=== PATIENT | female | born 1960 | race Caucasian/White ===

== ENCOUNTER 2016-09-09 17:01 | Inpatient (IN) | payer OTHER, MEDICARE ==
[~2016-09-09] VITALS: Ht 165.1 cm; Wt 59.9 kg
[~2016-09-09 17:01] MED LIST: ALBUTEROL 3 ML3 ML INH; ALBUTEROL SULFAT3 M1 INH; ALBUTEROL1.25 MG/1 INH; ALPRAZOLAM1 MG PO; ASPIRIN EC81 M1 PO; BACTRIM DS TAB1 EACH PO; BLM PO; BREO ELLIPTA 11 EACH INH; CALCIUM600 M2 PO; DILTIAZEM ER120 M2 PO; DOLOPHINE HCL10 M1 PO; DOLOPHINE10 MG PO; ELIQUIS5 M1 PO; GAS RELIEF40 MG/0.6 PO; HUMALOG 100U100 U/ML SC; HUMALOG100 UNIT/2 SC; HYDROXYZINE HCL25 M2 PO; IPRAT-ALBUT 0.5-3 ML INH; LANTUS INS100 UNITS/ SC; LANTUS SOLOS100 U/ML SC; LASIX40 M1 PO; LEVAQUIN750 MG PO; LEVEMIR 10100 UNITS/ SC; LOMOTIL 0.025 M1 TAB PO; LYRICA50 MG PO; LYRICA75 M1 PO; LYRICA75 MG PO; METHIMAZOLE5 M1 PO; METHIMAZOLE5 MG PO; METOCLOPRAMIDE10 MG PO; METOCLOPRAMIDE5 MG PO; MOXIFLOXACIN H400 M1 PO; NEBULIZER MACHINE; NICODERM C21 MG/24 H TOP; NICOTINE PATCH1 EAC1 TD; NOVOLOG 10300 UNITS/ SC; NOVOLOG100 UNIT/2 SC; OMEPRAZOLE D/R20 MG PO; PERMETHRIN60 GM TOP; PREDNISONE10 M2 PO; PRILOSEC 20MG C20 MG PO; PROAIR HFA8.5 GM INH; PROPRANOLOL HCL20 M1 PO; PROPRANOLOL HCL20 MG PO; PROTONIX40 M3 IV; REGLAN10 MG PO; REGLAN5 M1 PO; ROBITUSSIN W/CO10 ML PO; SYMBICORT 160/41 PUF INH; SYMBICORT 16010.2 GM INH; TAPAZOLE 5 MG TA5 MG PO; TAPAZOLE5 MG PO; TOUJEO SOL300 UNIT/1 SC; TRAZODONE HCL50 M1 PO; VENTOLIN H0.09 MG/Ac INH; VITAMIN D250000 UNIT PO; XANAX1 M1 PO; ZOFRAN 4MG ORALL4 MG SL; ZOFRAN ODT4 MG SL
--- NOTE | 2016-09-09 17:12 | NUR ---
RT AT BEDSIDE ON ARRIVAL FOR NEB TX AND ABG.
--- NOTE | 2016-09-09 17:13 | ED DYSPNEA/ASTHMA COMPLAINT ---
History of Present Illness General Chief Complaint: Dyspnea (COPD, CHF, Other) Stated Complaint: BIBA FOR DIFFICULTY BREATHING Source: patient, family, old records Exam Limitations: poor historian Vital Signs & Intake/Output Vital Signs & Intake/Output ED Intake and Output 09/18 0000 09/17 1200 Intake Total 800 600 Output Total 1 Balance 799 600 Intake, Oral 800 600 Number 1 Bowel Movements Output, Stool 1 Allergies Coded Allergies: No Known Allergies (05/16/16) PER PT VERBALLY VERIFIED TAKES 81MG ASA Triage Note: BIBA FROM HOME WITH C/O SOB FOR 2-3 WEEKS WITH COUGH PRODUCING YELLOW-GREEN SPUTUM. PT ON 4L BASELINE AT HOME, ARRIVES SATS 85 ON 4L AFTER DUONEB EN ROUTE. Triage Nurses Notes Reviewed? yes Onset: Gradual Duration: week(s): (2) Timing: recent history Severity: severe Activities at Onset: none Prior Episodes/Possible Cause: occasional episodes Modifying Factors: Improves With: immobilization. Associated Symptoms: cough HPI: Patient is a 55-year-old female with history of COPD, on 4 L nasal cannula chronically presenting to the emergency department via ambulance with chief complaint of increasing shortness of breath 2 weeks. Intermittent dry cough that worse with exertion. Denies chest pain or palpitations. She does report intermittent abdominal discomfort that comes and goes. No nausea or vomiting. Per daughter she still has been smoking on oxygen. No change in medication dosing. Taking medications as prescribed. She reports that she's been eating and drinking without much difficulty. No recent travel. Denies any leg edema or pain. Per daughter she's been intermittently confused for the past couple days. (RANDY NICOLE,JOSY) Reconcile Medications Albuterol Sulfate (Proair Hfa) 8.5 GM HFA.AER.AD 2 PUF INH Q4-6 PRN PRN BREATHING (Reported) Albuterol Sulfate 2.5 MG/3 ML (0.083 %) VIAL.NEB 3 ML INH TID COPD Alprazolam (Xanax) 1 MG TABLET 1 TAB PO TIDPRN PRN ANXIETY (Reported) Aspirin (Ecotrin*) 81 MG TABLET.DR 1 TAB PO DAILY HEART/BLOOD (Reported) Budesonide/Formoterol Fumarate (Symbicort 160-4.5 Mcg Inhaler) 10.2 GM HFA.AER.AD 2 PUF INH BID copd (Reported) Ergocalciferol (Vitamin D2) (Vitamin D2) 50,000 UNIT CAPSULE 1 CAP PO QFRI SUPPLEMENT (Reported) Hydroxyzine HCl 25 MG TABLET 1-2 TAB PO TID PRN ITCHING Insulin Aspart (Novolog) 100 UNIT/ML VIAL 0 UNITS SC SI diabetes BEFORE MEALS Blood Insulin Sugar Units <100 0 100-180 2 units 181-250 3 U 251-320 4 U 321-360 5 U 361-450 6 U >450 7 U >400 7 Call Doctor AT BEDTIME Blood Insulin Sugar Units <320 0 321-360 2 U 361-450 3 U >450 4 U Insulin Glargine,Hum.rec.anlog (Toujeo Solostar) 300 UNIT/1 ML INSULN.PEN 20 UNITS SC 0900 DIABETES (Reported) Methadone HCl (Dolophine HCl) 10 MG TABLET 10 TAB PO 0500 CHRONIC PAIN ( Reported) Methimazole 10 MG TABLET 1 TAB PO DAILY HYpothyroididsm (Reported) Metoclopramide HCl (Reglan) 5 MG TABLET 1 TAB PO Q6P PRN NAUSEA Prednisone 10 MG TABLET 1 TAB PO BID COPD 09/18/2016 40 mg (4 tablets) 09/19-09/20 30 mg 09/21-09/22 20 mg 09/23-09/24 10 mg Pregabalin (Lyrica) 75 MG CAPSULE 1 CAP PO BID NERVE PAIN (Reported) Propranolol HCl 20 MG TABLET 1 TAB PO BID PRN TACHYCARDIA (Reported) Trazodone HCl 50 MG TABLET 1 TAB PO QPM PRN Sleep (Reported) (KURT NERI MD) Past History Travel History Traveled to [place] past 21 day No Medical History Any Pertinent Medical History? 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 SON (IDDM). Relation not specified for: FH: diabetes mellitus Hx Contributory? No (JOSY WILLIAMSON) Review of Systems Review of Systems Constitutional: Reports: chills, malaise, weakness. Comments Review of systems: See HPI, All other systems negative. Constitutional, no weight loss HEENT: No visual changes no sore throat Cardiovascular: No chest pain ,palpitation , orthopnea or ankle swelling Skin, no rashes Respiratory: No hemoptysis GI: No nausea no vomiting : No dysuria No hematuria Muscle skeletal: no back pain, no neck pain, Neurologic: No numbness no glasgow Psych: No stress anxiety or depression,. Heme/endocrine: No bruising no bleeding no polyuria or polydipsia Immunology: No splenectomy or history of AIDS (JOSY WILLIAMSON) Physical Exam Physical Exam General Appearance: alert, awake, anxious, mild distress, thin Respiratory: respiratory distress (mild), scattered wheezing throughout Comments: Well-developed well-nourished person in mild distress HEENT: extraocular motion intact, no nystagmus. Pupils equally round and reactive to light and accommodation. Nose is atraumatic. External auditory canal and Tympanic membranes clear. Pharynx normal. No swelling or edema. Dry oral mucosa. Neck: Supple, no lymphadenopathy, normal range of motion without pain or tenderness Back: Nontender Cardiovascular: Regular rate and rhythms no murmurs rubs or gallops, normal JVP Respiratory: Chest nontender. Mild respiratory distress.scattered wheezing auscultation bilaterally Abdomen: Soft, nontender nondistended, no appreciable organomegaly. Normal bowel sounds. No ascites Extremity: No edema, no calf tenderness to palpation, normal and equal pulses. Neuro: Alert oriented x3, motor sensory normal, cranial nerves II through XII grossly intact. needs to be redirected throughout exam. Skin: Appears to be jaundiced, no rashes. Psych: Anxious Core Measures ACS in differential dx? Yes Severe Sepsis Present: No Septic Shock Present: No (JOSY WILLIASMON) Progress Differential Diagnosis: asthma, AMI, bronchitis, costochondritis, CHF, COPD, pericarditis, pulmonary embolism, pneumonia, respiratory acidosis Plan of Care: Orders Procedure Date/time Status AEROSOL CHG 09/17 UNK Complete OXYGEN 09/17 UNK Complete OXYGEN DAILY CHARGE 09/17 UNK Complete Diagnostic Imaging: Viewed by Me: Radiology Read. Discussed w/RAD: Radiology Read. CXR Impression: PATIENT: ABEBE TURCIOS PRESENT AGE : 55 PATIENT ACCOUNT NO: [id number] : 61 LOCATION: [facility] ORDERING PHYSICIAN: JOSY NICOLE SERVICE DATE: 09/09/16 EXAM TYPE: RAD - XRY-PORTABLE CHEST XRAY EXAMINATION: XR PORTABLE CHEST CLINICAL INFORMATION: Shortness of breath. COMPARISON: Chest x-ray 07/29/2016 TECHNIQUE: Portable view of the chest was obtained. FINDINGS: Emphysematous hyperinflation of lungs. There is increased lung markings particularly at lung bases, compared to prior study raising question of a subtle changes of interstitial edema though there is no significant central pulmonary vascular congestion. Haziness left costophrenic angle consistent with small left effusion.. No dense consolidation. IMPRESSION: 1. Emphysematous hyperinflation of lungs. 2. Increased lung markings consistent with mild interstitial edema with probable small left pleural effusion. 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 <Electronically signed in Other Vendor System> SIGNED BY: SOFÍA HELTON MD 09/09/16 1802 Initial ED EKG: NSR (80bpm, artifact) Comments: On arrival patient is hypoxic at 85% on room air, patient goes up to 90% with 4 L. Patient on 4 L at baseline. Patient has diffuse wheezing on exam. She will receive breathing treatment, IV steroids and IV azithromycin. EKG ordered. We will also obtain an arterial blood gas. Patient family informed of all lab results. Patient in respiratory acidosis. Likely secondary to COPD exacerbation. Patient will be admitted to the ICU secondary to BiPAP use. We will recheck an ABG which shows acidosis with an hour. Patient was seen and evaluated by Dr. Ramila Figueroa. Patient will be admitted to icu. (RANDY NICOLE,JOSY) Departure Departure Time of Disposition: 1812 Disposition: STILL A PATIENT Condition: Stable Clinical Impression Primary Impression: COPD exacerbation Secondary Impressions: Respiratory acidosis Referrals: JANET CEVALLOS MD (PCP/Family) Departure Forms: Customer Survey General Discharge Information Admission Note Spoke With: SHITAL ACKERMAN MD Documentation of Exam: Documentation of any treatments & extenuating circumstances including Concerns Regarding Discharge (functional status, medication knowledge or non-compliance, living conditions, etc.) that warrant an admission rather than observation: Patient requiring BiPAP for respiratory acidosis, will require respiratory consultation, repeat ABG, pending ultrasound patient may require GI consultation for jaundice and elevated alkaline phosphatase and elevated LFT. Discharge at this time and be medically harmful (JOSY WILLIAMSON) Departure Prescriptions: Current Visit Scripts Insulin Aspart (Novolog) 0 UNITS SC SI 30 Days BEFORE MEALS Blood Insulin Sugar Units <100 0 100-180 2 units 181-250 3 U 251-320 4 U 321-360 5 U 361-450 6 U >450 7 U >400 7 Call Doctor AT BEDTIME Blood Insulin Sugar Units <320 0 321-360 2 U 361-450 3 U >450 4 U Prednisone 1 TAB PO BID #16 TAB 09/18/2016 40 mg (4 tablets) 09/19-09/20 30 mg 09/21-09/22 20 mg 09/23-09/24 10 mg Albuterol Sulfate 3 ML INH TID 30 Days Ref 1 Hydroxyzine HCl 1-2 TAB PO TID PRN ITCHING #30 TAB PA/ON SITE SOIL EVALUATOR Co-Sign Statement Statement: ED Attending supervision documentation- x I saw and evaluated the patient. I have also reviewed all the pertinent lab results and diagnostic results. I agree with the findings and the plan of care as documented in the PA's/ON SITE SOIL EVALUATOR's documentation. Worsening shortness of breath, [place], increased work of breathing on home oxygen continues to smoke with recurrent hypercapnic respiratory failure. Patient alert and responsive but restless and confused, diffuse ronchi, cachexia, pallor. BiPAP started. [] I have reviewed the ED Record and agree with the PA's/ON SITE SOIL EVALUATOR's documentation. [] Additions or exceptions (if any) to the PAs/ON SITE SOIL EVALUATOR's note and plan are summarized below: [] (HALLE BAUM,KURT) Critical Care Note Critical Care Note Critical Care Time: 75-104 min (JOSY WILLIAMSON) (JOSY WILLIAMSON) PA/ON SITE SOIL EVALUATOR Co-Sign Statement Statement: ED Attending supervision documentation- x I saw and evaluated the patient. I have also reviewed all the pertinent lab results and diagnostic results. I agree with the findings and the plan of care as documented in the PA's/ON SITE SOIL EVALUATOR's documentation. Worsening shortness of breath, [place]ITFIELD, increased work of breathing on home oxygen continues to smoke with recurrent hypercapnic respiratory failure. Patient alert and responsive but restless and confused, diffuse ronchi, cachexia, pallor. BiPAP started. [] I have reviewed the ED Record and agree with the PA's/ON SITE SOIL EVALUATOR's documentation. [] Additions or exceptions (if any) to the PAs/ON SITE SOIL EVALUATOR's note and plan are summarized below: [] (HALLE BAUM,KURT) Critical Care Note Critical Care Note Critical Care Time: 75-104 min (JOSY WILLIAMSON)
--- NOTE | 2016-09-09 17:36 | NUR ---
PCXR DONE. 1 UNSUCESSFUL ATTEMPT BY RT FOR ABG, 1 UNSUCCESSFUL ATTEMPT FOR IV/BLOOD,, RT AND MST AT BEDSIDE AT THIS TIME. SEEN BY BONNIE PADILLA. PT CONFUSED AND VERY ANXIOUS/HYPERACTIVE, UNABLE TO HOLD STILL FOR VITALS/LABS, DTR AT BEDSIDE STATING PT "NOT MAKING ANY SENSE." SATS MID-HIGH 80S ON 4.5L.
--- NOTE | 2016-09-09 17:47 | NUR ---
ABG ACCOMPLISHED PER RT AND BLOOD SENT BY [facility]ST, PT ON NEB TX NOW. SATS 87% ON NEB TX. DTR AT BEDSIDE.
--- NOTE | 2016-09-09 17:54 | NUR ---
LABS SENT (BLUE,SST,LAV,WEN)
[2016-09-09 17:55] LABS: ABSOLUTE BASOPHIL COUNT 0 /CUMM (0.0-0.2); ABSOLUTE EOSINOPHIL COUNT 0 /CUMM (0.0-0.7); ABSOLUTE GRANULOCYTE CT 5.8 /CUMM (1.4-6.5); ABSOLUTE LYMPH COUNT 1.3 /CUMM (1.2-3.4); ABSOLUTE MONOCYTE COUNT 0.4 /CUMM (0.10-0.60); BASOPHIL % 0 % (0.0-2.0); EOSINOPHIL % 0 % (0-5); HEMATOCRIT 27.8 % (37-47); MEAN CORPUSCULAR HGB 28.3 PG (27.0-31.0); MEAN CORPUSCULAR HGB CONC 32.1 G/DL (33.0-37.0); MEAN CORPUSCULAR VOLUME 87.9 FL (81.0-99.0); MEAN PLATELET VOLUME 9.4 FL (7.4-10.4); PLATELET COUNT 333 /CUMM (130-400); RBC DISTRIBUTION WIDTH 17.6 % (11.5-14.5); RED BLOOD CELL CT 3.16 /CUMM (4.20-5.40); WHITE BLOOD CELL COUNT 7.4 /CUMM (4.8-10.8)
--- NOTE | 2016-09-09 18:02 | RADIOLOGY REPORT ---
EXAMINATION: XR PORTABLE CHEST CLINICAL INFORMATION: Shortness of breath. COMPARISON: Chest x-ray 07/29/2016 TECHNIQUE: Portable view of the chest was obtained. FINDINGS: Emphysematous hyperinflation of lungs. There is increased lung markings particularly at lung bases, compared to prior study raising question of a subtle changes of interstitial edema though there is no significant central pulmonary vascular congestion. Haziness left costophrenic angle consistent with small left effusion.. No dense consolidation. IMPRESSION: 1. Emphysematous hyperinflation of lungs. 2. Increased lung markings consistent with mild interstitial edema with probable small left pleural effusion.
[2016-09-09 18:11] LABS: GRANULOCYTE % 77.6 % (42.2-75.2)
--- NOTE | 2016-09-09 18:13 | NUR ---
PT MEDICATED WITH 125MG SOLUMEDROL PER ORDER AT THSI TIME.
--- NOTE | 2016-09-09 18:23 | NUR ---
ZITHROMAX INFUSING PER ORDER AT THIS TIME AT 250ML/HR.
--- NOTE | 2016-09-09 18:43 | NUR ---
PT ON BIPAP AND MUCH MORE COMFORTABLE, PT REMAINS RESTLESS AND ANXIOUS, MOVING CONTINUOUSLY, HAVING DIFFICULTY STAYING STILL FOR PROCEDURES, MORE REDIRECTABLE THAN PRIOR, SATS 100% ON BIPAP.
--- NOTE | 2016-09-09 19:02 | NUR ---
BED ASSIGNMENT 104
--- NOTE | 2016-09-09 19:03 | NUR ---
HOUSE STAFF AT BEDSIDE
[2016-09-09] MEDS ORDERED: METHIMAZOLE5 M1 PO (19:22)
[2016-09-09] MEDS ORDERED: PROPRANOLOL HCL20 M1 PO (19:24)
--- NOTE | 2016-09-09 19:50 | NUR ---
EKG DONE WITH MUCH DIFFICULTY AFTER MULTIPLE ATTEMPTS --PA/ INFORMED THAT PT IS UNABLE/UNWILLING TO SIT STILL FOR ANY LENGTH OF TIME AND THUS UNABLE TO OBTAIN EKG WITHOUT SIGNIFICANT ARTIFACT.
--- NOTE | 2016-09-09 20:01 | NUR ---
US AT BEDSIDE
--- NOTE | 2016-09-09 20:15 | NUR ---
REPORT CALLED TO DENISE IN ICU. US IN PROGRESS.
--- NOTE | 2016-09-09 20:25 | NUR ---
RT AT BEDSIDE TO DRAW REPEAT ABG
--- NOTE | 2016-09-09 20:42 | History & Physical ---
SKYLER ALFORD 09/09/162024: General Information and HPI MD Statement: I have seen and personally examined ABEBE TURCIOS and documented this H&P. The patient is a 55 year old F who presented with a patient stated chief complaint of []. 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 fib not on anticoagulation, Graves' disease on methimazole, chronic pain syndrome on methadone (goals to methadone clinic every week), osteoarthritis, recent admission in [facility] for fall resulting in comminuted right mandibular head fracture and she was transferred to [place] for possible surgery (never got a surgery, was treated conservatively, was on oxycodone, last took 4-5 days ago) brought into ER from home with complaint of worsening shortness of breath, productive cough with greenish phlegm, fever Tmax 103, poor oral intake for last 2-3 days, intermittent confusion and dry heaving. When she came to ER her temperature was 97.6, pulse 94, respiratory rate 28, blood pressure 196/85 and oxygen saturation 85% on 4 L. Her daughter is at bedside. According to her she wanted to bring her to ER yesterday because of her intermittent confusion. Today she noticed worsening of her confusion and shortness of breath. Patient follows Dr. Anaya as an outpatient. She was supposed to see him on Thursday. Patient denies any chest pain or discomfort, diarrhea or constipation, urinary symptoms. She reports intermittent mild abdominal pain. She took Robitussin for cough at home. She lives with her daughter and son. Her son was experiencing some upper respiratory tract infection these days. She denies any recent long travel. Consultants: Dr. Anaya and Dr. cruz Allergies/Medications Allergies: Coded Allergies: No Known Allergies (05/16/16) PER PT VERBALLY VERIFIED TAKES 81MG ASA Home Med list Albuterol Sulfate (Proair Hfa) 8.5 GM HFA.AER.AD 2 PUF INH Q4-6 PRN PRN BREATHING (Reported) Alprazolam (Xanax) 1 MG TABLET 1 TAB PO TIDPRN PRN ANXIETY (Reported) Aspirin (Ecotrin*) 81 MG TABLET.DR 1 TAB PO DAILY HEART/BLOOD (Reported) Budesonide/Formoterol Fumarate (Symbicort 160-4.5 Mcg Inhaler) 10.2 GM HFA.AER.AD 2 PUF INH BID copd (Reported) Ergocalciferol (Vitamin D2) (Vitamin D2) 50,000 UNIT CAPSULE 1 CAP PO QFRI SUPPLEMENT (Reported) Hydroxyzine HCl 25 MG TABLET 1-2 TAB PO TID PRN ITCHING Insulin Aspart (Novolog) 100 UNIT/ML VIAL 0 UNITS SC SI diabetes BEFORE MEALS Blood Insulin Sugar Units <80 0 81-150 0 151-200 2 201-250 3 251-300 4 301-350 5 351-400 6 >400 7 Call Doctor AT BEDTIME Blood Insulin Sugar Units <80 0 81-100 0 101-200 0 201-250 0 251-300 0 301-350 2 351-400 3 >400 4 Call Doctor Insulin Glargine,Hum.rec.anlog (Toujeo Solostar) 300 UNIT/1 ML INSULN.PEN 20 UNITS SC 0900 DIABETES (Reported) Methadone HCl (Dolophine HCl) 10 MG TABLET 10 TAB PO 0500 CHRONIC PAIN ( Reported) Methimazole 5 MG TABLET 15 MG PO DAILY GRAVES DISEASE (Reported) Metoclopramide HCl (Reglan) 5 MG TABLET 1 TAB PO Q6P PRN NAUSEA Pregabalin (Lyrica) 75 MG CAPSULE 1 CAP PO BID NERVE PAIN (Reported) Propranolol HCl 20 MG TABLET 1 TAB PO BID PRN TACHYCARDIA (Reported) Trazodone HCl 50 MG TABLET 1 TAB PO QPM PRN Sleep (Reported) Compliance With Home Meds: GOOD Past History Travel History Traveled to [place] past 21 day No Medical History Neurological: dizziness, peripheral neuropathy EENT: NONE Cardiovascular: ABNORMAL ekg Respiratory: asthma, bronchitis, COPD, 2-3LNC O2 DEPENDENT Gastrointestinal: GASTROPARESIS Hepatic: TRANSAMINITIS Renal: NONE Musculoskeletal: chronic back pain, degen joint disease, falls, osteoporosis, SCOLIOSIS Psychiatric: anxiety Endocrine: diabetes, diabetic ketoacidosis, Grave's disease Blood Disorders: NONE Cancer(s): NONE [employer] M[employer]/Reproductive: gonorrhea, miscarriage History of MRSA: Yes History of VRE: No History of CDIFF: No Influenza Vaccine: 05/30/16 Tetanus Vaccine: 12/16/12 Surgical History Surgical History: cholecystectomy, TONSILLECTOMY Past Family/Social History Family History Relations & Conditions if any MOTHER (NIDDM). SON (IDDM). FATHER (pancreatic cancer). Relation not specified for: FH: diabetes mellitus FH: thyroid disease Psychosocial History Where do you live? Home Who Do You Live With? child Services at Home: Oxygen Smoking Status: Current Everyday Smoker (10 cig/day) ETOH Use: denies use Illicit Drug Use: denies illicit drug use Functional Ability ADLs Independent: dressing, eating, toileting, bathing. Ambulation: independent IADLs Independent: shopping, housework, finances, food prep, telephone, transportation , medication admin. Review of Systems Review of Systems Constitutional: Reports: see HPI. Exam & Diagnostic Data Last 24 Hrs of Vital Signs/I&O Vital Signs Date Time Temp Pulse Resp B/P Pulse O2 O2 Flow FiO2 Ox Delivery Rate 09/09 2052 82 100 09/09 1939 84 20 152/74 100 BIPAP 50% 09/09 1849 83 Nasal 4.0L Cannula 09/09 1846 88 100 09/09 1837 98.6 87 18 180/78 100 BIPAP 60% 09/09 1751 89 Nasal 5.0L Cannula 09/09 1709 97.6 94 28 196/85 93 Nasal 4.0L Cannula Physical Exam General Appearance Alert, Mild Distress, slightly confused Skin multiple small scabbed wounds on her back and legs HEENT dry mucous membranes Neck Supple Cardiovascular Regular Rate, No Murmurs Lungs decreased air entry B/L Abdomen Soft, No Tenderness Neurological Normal Speech, Strength at 5/5 X4 Ext, Sensation Intact, Cranial Nerves 3-12 NL Extremities No Edema Last 24 Hrs of Labs/Arie: Laboratory Tests 09/09/16 1745: Anion Gap 10, Estimated GFR 58 L, BUN/Creatinine Ratio 31.0 H, Glucose 127 H, Calcium 8.4, Magnesium 1.5 L, Total Bilirubin 0.4, AST 60 H, ALT 49, Alkaline Phosphatase 407 H, Troponin I < 0.01, Uwb-N-Tucvbglonkt Pept 7870 H, Total Protein 6.3, Albumin 3.3 L, Globulin 3.0, Albumin/Globulin Ratio 1.1, CBC w Diff NO MAN DIFF REQ, RBC 3.16 L, MCV 87.9, MCH 28.3, RDW 17.6 H, MPV 9.4, Gran % 77.6 H, Lymphocytes % 16.8 L, Monocytes % 5.6, Eosinophils % 0, Basophils % 0 L, Absolute Granulocytes 5.8, Absolute Lymphocytes 1.3, Absolute Monocytes 0.4, Absolute Eosinophils 0, Absolute Basophils 0, PUBS MCHC 32.1 L, Serum Alcohol < 10.0, Acetone Level POSITIVE AT 1:4 DIL 09/09/16 1740: pH 7.28 *L, pCO2 71 *H, pO2 56 L, HCO3 32 H, ABG O2 Sat (Measured) 86.0 L, Carboxyhemoglobin 1.9, O2 Concentration % 5L, O2 Delivery Method NC, Phlebotomy Draw Site LEFT RADIAL Microbiology 09/09 2102 BLOOD: Blood Culture - ORD 09/09 2102 BLOOD: Blood Culture - ORD 09/09 2013 LOWER RESP: Respiratory Culture - ORD 09/09 2013 LOWER RESP: Gram Stain - ORD Diagnostic Data EKG Results Normal sinus rhythm, no acute ST-T wave changes, QTc 480 CXR Results IMPRESSION: 1. Emphysematous hyperinflation of lungs. 2. Increased lung markings consistent with mild interstitial edema with probable small left pleural effusion. Other Results Right upper quadrant ultrasound MPRESSION: Status post cholecystectomy. 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 fib not on anticoagulation, Graves' disease on methimazole, chronic pain syndrome on methadone, osteoarthritis, recent admission in [facility] for fall resulting in comminuted right mandibular head fracture and she was transferred to [place] for possible surgery (never got a surgery, was treated conservatively, was on oxycodone, last took 4-5 days ago) is going to be admitted in ICU for: 1. Acute on chronic hypoxic respiratory failure most likely secondary to COPD exacerbation. Other possibilities could be a viral URI vs Healthcare associated pneumonia vs heart failure 2. Mild Acute on chronic diastolic heart failure. Elevated proBNP. Chest x- ray findings suggestive of mild interstitial edema. Was given IV Lasix 20 mg 1. 3. Elevated LFTs 4. Electrolyte derangements. Hyponatremia 132 (134-136), K 5.4 (5), Mg 1.5 5. Insulin-dependent diabetes mellitus Monitor vitals closely. Continue BiPAP. Repeat ABGs are pH 7.25, PCO2 71. Discussed with Dr. Anaya. Will change settings of BiPAP to 20/6. She is on 40 % oxygen right now with oxygen saturation 98%. She is completely alert and awake. Will continue IV Solu-Medrol and Zithromax. Also start her on IV ceftriaxone. Blood and sputum cultures. TRC nebs. Will repeat ABGs after new BiPAP settings. We will do repeat troponins and EKG. Cardio consult. Last echocardiogram was done on 01/22/2016 that showed stage II diastolic dysfunction with ejection fraction more than 65%. There was [id number] mitral regurgitation and right ventricular systolic pressure was 40-45 mmHg. Repeat electrolytes and LFTs in a.m. Patient has history of poorly controlled diabetes mellitus. Because she is getting steroids for her current condition so hyperglycemia as expected. Will consult Dr. cruz for better control of her blood sugar while in hospital. We'll keep her nothing by mouth for now. Subcutaneous Lovenox for DVT prophylaxis. Will continue her scheduled home medications. Full code. Health proxy: Daughter, yaima pratt [phone] As Ranked By This Provider Problem List: 1. Respiratory acidosis 2. COPD exacerbation Core Measures/Miscellaneous Acute Coronary Syndrome ACS Diagnosis: No Cerebrovascular Accident CVA/TIA Diagnosis: No Congestive Heart Failure CHF Diagnosis: No Venous Thromboembolism VTE Risk Factors: Acute medical illness, Age > 40 VTE Prophylaxis Ordered Inpt: Pharm- Lovenox No [facility] VTE prophylaxis d/t: No contraindications No VTE Pharm Prophylaxis d/t: No contraindications VTE Diagnosis: No VTE Type: NONE VTE Confirmed by (Test): NONE Severe Sepsis Severe Sepsis Present: No BC x2: Yes Lactic Acid x2: Yes IV ABX Broad Spectrum: Yes Septic Shock Septic Shock Present: No Miscellaneous Documentation Attending Case Discussed With: SHITAL ACKERMAN MD Primary Care Physician: MART BAUM,JANET Patient sees these Specialists Dr. Jaclyn Cruz Level of Patient Care: Critical Care (CRI) Consults Needed: Consulting Specialty: Pulmonary Disease SHITAL ACKERMAN 09/10/16 0057: Attending MD Review Statement Attending Statement Attending MD Statement: examined this patient, discuss w/resident/PA/RETAIL ASSOCIATE, agreed w/resident/PA/RETAIL ASSOCIATE, reviewed EMR data (avail), reviewed images, amended to note Attending Assessment/Plan: Cc: SOB, cough PMHX: Insulin-dependent DM, COPD on 4 L O2, peripheral neuropathy, anxiety depression, paroxysmal A. fib, Graves' disease, HFpEF, chronic pain on methadone , gastroparesis, current smoker Patient complains of cough with yellow sputum production, worsening shortness of breath since 3 weeks. patient's daughter states that Confusion since 2 days. Patient was using more oxygen than 4 L at home, without much relief. Had chills with fever at 103. Patient also had some vague upper abdominal pain, along with decreased by mouth intake. Not much history could be obtained as patient on BiPAP. Patient was recently admitted and then transferred to [place] for mandibular fracture, she was treated conservatively, discharged after 5 days. Patient's son has upper respiratory infection. Vitals: Afebrile, pulse 94, RR 28 at presentation, improved to 20, BP 154/74 [ 195/85 at arrival], desaturating to 83 on 4 L, started on BiPAP saturating at 100%. On exam: A O, respiratory distress, accessory muscles in use, patient currently on BiPAP, RS: markedly decreased air entry bilaterally, no crackles. CVS: S1-S2, RRR. Abdomen: Soft, NT, ND, Mercado's sign negative BS present. Multiple scratch vázquez on skin with skin abrasions, not infected. Trace pedal edema present. Labs: Hemoglobin 8.9, significantly dropped from July 2016, sodium 132, potassium 5.4, bicarbonate 33, BUN 31, glucose 127, AST 60, alkaline phosphatase 407, proBNP 7870 (1210 in Jul,) UA positive for nitrites and leukocyte esterase. U tox positive for methadone but not other opiates, positive for benzodiazepines. Serum all called less than 10. Acetone level positive ABG pH 7.28, PCO2 71, PO2 56, bicarbonate 32 on nasal cannula 5 L. Chest x-ray: Emphysematous changes in the lungs, mild interstitial edema with left pleural effusion. Ultrasound abdomen: Status post cholecystectomy. Dilatation of the common bile duct, which is visualized measuring up to 1 cm in diameter, not significantly changed relative to a prior CT of the abdomen and pelvis dating back to 2013. Some degree of common bile duct dilatation is expected following cholecystectomy. A and P #1 acute on chronic hypercapnic and hypoxic respiratory failure, PO2 is markedly decreased at 56 and PCO2 is elevated with acidosis, patient was started on BiPAP in ER, repeat ABG was obtained. Which still shows mild increase in oxygenation, but PCO2 still high. Her some air leak around mask. Dr. Anaya was informed. Pressures changed, repeat ABG done, improving. This appears secondary to COPD exacerbation given her long-standing COPD. With sick contacts around, upper respiratory infection precipitating bronchospasm. Patient also had healthcare exposure in last month, but does not show any chest infiltrates. Given her poor respiratory status continue, IV methylprednisolone 40 mg every 6, IV antibiotics ceftriaxone and azithromycin, along with bronchodilator nebulization treatment, Mucinex, pulmonary toilet. Patient does not have significant leukocytosis. If patient spikes fever, given her healthcare contact change antibiotics to Vanco and ceftazidime #2 metabolic acidosis: Patient does not show enough compensation with bicarbonate, anion gap is 10, blood sugar normal, urine acetone positive, probably starvation ketosis. #3 potassium 5.4: Patient's potassium keeps fluctuating according to chart review, watch closely, if elevated to by mouth Kayexalate #4 patient had elevated alkaline phosphatase with chronic dilatation of CBD, Mercado's sign negative. #5 proBNP significantly elevated, given patient's history of heart failure with preserved ejection fraction, would suggest gentle diuresis, hold IV fluids, watch I's and O's. Repeat chest x-ray in a.m. Oxygenation improved with BiPAP and 20 mg of IV Lasix. Repeat the dose of Lasix in a.m. according to clinical exam. Trend troponin, repeat EKG #6 anemia: Hemoglobin decreased in the last 2 months, check iron studies, obtain history of any acute bleeding. #7 diabetes: Continue basal and bolus insulin at home doses. Inform Dr. cruz. #8 Graves' disease: Patient's thyroid function is deranged, decreased TSH with normal T4, doubt compliance, continue current medication, informed ultrasound as patient known to her. #9 chronic pain: Continue methadone. #10 continue other home medications for neuropathy, gastroparesis, anxiety and depression. #11 continue Lovenox for DVT prophylaxis, pain management as mentioned above. TTS: 30 min
--- NOTE | 2016-09-09 20:52 | ULTRASOUND REPORT ---
EXAMINATION: US ABDOMEN LIMITED CLINICAL INFORMATION: Jaundice and elevated LFTs. COMPARISON: CT abdomen and pelvis with contrast 06/09/2014. TECHNIQUE: Real-time imaging of the right upper quadrant abdominal viscera. FINDINGS: Limited exam secondary to portable technique and patient body habitus. PANCREAS: Normal. LIVER: The liver is normal in size, contour and echogenicity and measures approximately 15.6 cm in length. No focal lesion or intrahepatic biliary duct dilatation is identified. GALLBLADDER: Status post cholecystectomy. COMMON BILE DUCT: The common bile duct is dilated and is visualized measuring 1.0 cm in diameter. There are no visible echogenic intraductal stones. RIGHT KIDNEY: Unremarkable. No hydronephrosis. No renal calculi or focal parenchymal lesions. The kidney measures 8.9 cm in maximum dimension. FREE FLUID: None. IMPRESSION: Status post cholecystectomy. Dilatation of the common bile duct, which is visualized measuring up to 1 cm in diameter, not significantly changed relative to a prior CT of the abdomen and pelvis dating back to 06/09/2014. Some degree of common bile duct dilatation is expected following cholecystectomy. If there is a clinical concern for choledocholithiasis, consider correlation with MRCP of the abdomen.
[2016-09-10] VITALS: BP 142/61
--- NOTE | 2016-09-10 01:01 | Admission Certification ---
Admission Certification Certification Statement - As attending physician, I certify that at the time of - admission, based on clinical presentation, severity of - symptoms, need for further diagnostic testing and - therapeutic interventions, and risk of adverse outcomes - without in-hospital treatment, in my clinical assessment, - this patient requires an acute hospital stay for a minimum - of two nights or longer. I have also considered psychsocial - factors such as support system, advanced age, financial - issues, cognitive issues, and failed out-patient treatments, - past re-admission history, safety of patient, and lack of - compliance as applicable. Specific rationale supporting this admission is: Acute on chronic respiratory failure
--- NOTE | 2016-09-10 02:28 | NUR ---
ADMIT AACCEPTANCE: REC'D REPORT FROM RM NIDA IN ER. DX: RESP ACIDOSIS W/CPOD EXAC. 2049 ARRIVED IN THE ICU TO RM 104 VIA STRETCHER. TRANSFERRED WELL ONTO BED W/NO INCIDENTS. HOOKED UP ON THE MONITOR SR W/HR OF 80'S, SBP 150-160'S. NO CP. ON BIPAP W/RATE 22/ FIO2 50% IPAP/EPAP 20/4. ABG DONE EARLIER 7.25/71/114/98/31. RT ARLETH <FIO2 TO 40%. LS DIMINISHED THROUGOUT THE LOBES. SOBOE. HAS NOT VOIDED SINCE ADMITTED TO THE ER. NO URGENCY TO VOID YET PER PT. MG IV BOLUS INFUSING. PT WAS VERY ANXIOUS. A LOT OF REASSURANCE GIVEN. REQUESTED HER XANAX WHICH SHE TAKES 1MG TID PRN. PER DR. ACKERMAN NOT TO GIVE HER REGULAR DOSE OF XANAX BUT GIVE SMALL DOSE FOR NOW. MD ALFORD SPOKE TO PT RE. LOW DOSE XANAX OF 0.25MG WHICH PT COMPLY. REST OF HER HS MEDS GIVEN SEE EMAR FOR TIMES. 2129 ABX NOT GIVEN YET D/T NO BC NOT DONE. ONCE ALL THE MEDS/TX DONE PT SETTLED BACK TO SLEEP. 2ND MAG BOLUS TOTAL 2G IV GIVEN. 2300 TRUNG FRANKS DID BC X2 & TROP. PT FINALLY VOIDED AFTER LASIX IVP GIVEN APPROX. 900CC OF YELLOW URINE ON BSC. UA/URINE TOX SCREEN OBTAINED & SENT. SETTLED BACK TO BED. PT DID NOT CALLED FOR ASSIST TO BSC BUT RT ARLETH HELPED PT ONTO BSC. PT MUCH MORE CALM THAN BETTER. [address] ALFORD TO DO ANOTHER BS @MN & 3AM PER DR. LOPEZ. BS 172. NO ORDERS GIVEN. 0200 VOIDED AGAIN W/1 ASSIST TO BSC ANOTHER 900CC.
[2016-09-10 05:40] LABS: HEMATOCRIT 27.5 % (37-47); MEAN CORPUSCULAR HGB 27.5 PG (27.0-31.0); MEAN CORPUSCULAR HGB CONC 31.7 G/DL (33.0-37.0); MEAN CORPUSCULAR VOLUME 86.7 FL (81.0-99.0); MEAN PLATELET VOLUME 9.3 FL (7.4-10.4); PLATELET COUNT 348 /CUMM (130-400); RBC DISTRIBUTION WIDTH 17.6 % (11.5-14.5); RED BLOOD CELL CT 3.18 /CUMM (4.20-5.40); WHITE BLOOD CELL COUNT 6.4 /CUMM (4.8-10.8)
--- NOTE | 2016-09-10 07:44 | Cons- CRCU ---
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 fib not on anticoagulation, Graves' disease on methimazole, chronic pain syndrome on methadone (goals to methadone clinic every week), osteoarthritis, recent admission in [facility] for fall resulting in comminuted right mandibular head fracture and she was transferred to [place] for possible surgery (never got a surgery, was treated conservatively, was on oxycodone, last took 4-5 days ago) brought into ER from home with complaint of worsening shortness of breath, productive cough with greenish phlegm, fever Tmax 103, poor oral intake for last 2-3 days, intermittent confusion and dry heaving. When she came to ER her temperature was 97.6, pulse 94, respiratory rate 28, blood pressure 196/85 and oxygen saturation 85% on 4 L. Her daughter is at bedside. According to her she wanted to bring her to ER yesterday because of her intermittent confusion. Today she noticed worsening of her confusion and shortness of breath. Patient follows Dr. Fitch as an outpatient. She was supposed to see him on Thursday. Patient denies any chest pain or discomfort, diarrhea or constipation, urinary symptoms. She reports intermittent mild abdominal pain. She took Robitussin for cough at home. She lives with her daughter and son. Her son was experiencing some upper respiratory tract infection these days. She denies any recent long travel. Allergies/Medications Allergies: Coded Allergies: No Known Allergies (05/16/16) PER PT VERBALLY VERIFIED TAKES 81MG ASA Home Med List: Albuterol Sulfate (Proair Hfa) 8.5 GM HFA.AER.AD 2 PUF INH Q4-6 PRN PRN BREATHING (Reported) Alprazolam (Xanax) 1 MG TABLET 1 TAB PO TIDPRN PRN ANXIETY (Reported) Aspirin (Ecotrin*) 81 MG TABLET.DR 1 TAB PO DAILY HEART/BLOOD (Reported) Budesonide/Formoterol Fumarate (Symbicort 160-4.5 Mcg Inhaler) 10.2 GM HFA.AER.AD 2 PUF INH BID copd (Reported) Ergocalciferol (Vitamin D2) (Vitamin D2) 50,000 UNIT CAPSULE 1 CAP PO QFRI SUPPLEMENT (Reported) Hydroxyzine HCl 25 MG TABLET 1-2 TAB PO TID PRN ITCHING Insulin Aspart (Novolog) 100 UNIT/ML VIAL 0 UNITS SC SI diabetes BEFORE MEALS Blood Insulin Sugar Units <80 0 81-150 0 151-200 2 201-250 3 251-300 4 301-350 5 351-400 6 >400 7 Call Doctor AT BEDTIME Blood Insulin Sugar Units <80 0 81-100 0 101-200 0 201-250 0 251-300 0 301-350 2 351-400 3 >400 4 Call Doctor Insulin Glargine,Hum.rec.anlog (Toujeo Solmariannaar) 300 UNIT/1 ML INSULN.PEN 20 UNITS SC 0900 DIABETES (Reported) Methadone HCl (Dolophine HCl) 10 MG TABLET 10 TAB PO 0500 CHRONIC PAIN ( Reported) Methimazole 5 MG TABLET 15 MG PO DAILY GRAVES DISEASE (Reported) Metoclopramide HCl (Reglan) 5 MG TABLET 1 TAB PO Q6P PRN NAUSEA Pregabalin (Lyrica) 75 MG CAPSULE 1 CAP PO BID NERVE PAIN (Reported) Propranolol HCl 20 MG TABLET 1 TAB PO BID PRN TACHYCARDIA (Reported) Trazodone HCl 50 MG TABLET 1 TAB PO QPM PRN Sleep (Reported) Current Medications: Current Medications Sig/Cathy Start time Last Medication Dose Route Stop Time Status Admin Albuterol Sulfate 3 ML TID 09/09 2200 AC 09/10 INH 0813 Albuterol Sulfate 3 ML ONCE ONE 09/09 1715 DC 09/09 INH 09/09 1716 1750 Alprazolam 0.25 MG TID PRN 09/09 2145 AC 09/10 PO 09/16 2144 0516 Aspirin Buffered 81 MG DAILY 09/10 1000 AC 09/10 PO 1043 Azithromycin 500 MG DAILY 09/10 1000 AC 09/10 Sodium Chloride 250 ML IV 1043 Azithromycin 500 MG ONCE ONE 09/09 1815 DC 09/09 Sodium Chloride 250 ML IV 09/09 1914 1823 Budesonide/ 2 PUF BID 09/09 2200 AC 09/10 Formoterol Fumarate INH 1043 Ceftriaxone Sodium 1,000 MG AT BEDTIME 09/09 2200 AC 09/09 IV 2300 Enoxaparin Sodium 40 MG DAILY 09/10 1000 AC SC Furosemide 0 .STK-MED ONE 09/09 2021 DC IV Furosemide 20 MG ONCE ONE 09/09 2015 DC 09/09 IV 09/09 2016 2141 Insulin Aspart 0 TIDAC/HS 09/10 1200 AC SC Insulin Aspart 0 TIDAC 09/10 0800 DC SC Insulin Detemir 10 UNITS BID 09/09 2200 AC 09/10 SC 1043 Magnesium Sulfate 1 GM Q2H 09/09 1700 DC 09/09 Dextrose/Water 100 ML IV 09/09 2059 2130 Methadone HCl 100 MG 0500 09/10 0500 AC 09/10 PO 0516 Methimazole 15 MG DAILY 09/10 1000 AC 09/10 PO 1043 Methylprednisolone 40 MG Q6 09/10 0600 AC 09/10 IV 1203 Methylprednisolone 40 MG Q8 09/09 2200 DC IV Methylprednisolone 125 MG ONCE ONE 09/09 1815 DC 09/09 IV 09/09 1816 1813 Methylprednisolone 0 .STK-MED ONE 09/09 1811 DC .ROUTE Nicotine 14 MG DAILY 09/10 1000 AC 09/10 TOP 1043 Nicotine 21 MG DAILY 09/10 1000 CAN TOP Pregabalin 75 MG BID 09/09 2200 AC 09/10 PO 1043 Sodium Chloride 1,000 ML BOLUS ONE 09/09 1800 DC 09/09 IV 09/09 1959 1813 Trazodone HCl 50 MG QPM PRN 09/09 2015 AC PO Review of Systems Review of Systems Constitutional: Reports: see HPI. Respiratory: Reports: cough, short of breath. Musculoskeletal: Reports: back pain. Comments ROS negative except as above. 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 SON (IDDM). FATHER (pancreatic cancer). Relation not specified for: FH: diabetes mellitus FH: thyroid disease Psychosocial History Where Do You Live? Home Who Do You Live With? child Services at Home: Oxygen Smoking Status: Current Everyday Smoker (10 cig/day) ETOH Use: denies use Illicit Drug Use: denies illicit drug use Functional Ability ADLs Independent: dressing, eating, toileting, bathing. Ambulation: independent IADLs Independent: shopping, housework, finances, food prep, telephone, transportation , medication admin. Exam & Diagnostic Data Last 24 Hrs of Vital Signs/I&O Vital Signs Date Time Temp Pulse Resp B/P Pulse O2 O2 Flow FiO2 Ox Delivery Rate 09/10 0813 86 96 09/10 08 93 BIPAP 40% 09/10 08 98.9 86 26 140/60 93 BIPAP 40% 09/10 0800 95 Nasal 4.0L Cannula 09/10 0526 82 96 09/10 0400 96 BIPAP 40% 09/10 0250 84 97 09/10 0052 85 94 09/10 0000 98 BIPAP 40% 09/10 0000 97.6 80 24 142/61 98 BIPAP 40% 09/09 2130 BIPAP 40% 09/09 2052 82 100 09/09 1939 84 20 152/74 100 BIPAP 50% 09/09 1849 83 Nasal 4.0L Cannula 09/09 1846 88 100 09/09 1837 98.6 87 18 180/78 100 BIPAP 60% 09/09 1751 89 Nasal 5.0L Cannula 09/09 1709 97.6 94 28 196/85 93 Nasal 4.0L Cannula Intake & Output 09/10 1600 09/10 0800 09/10 0000 Intake Total 120 2960 Output Total 900 900 Balance -780 2060 Intake, IV 0 2850 Intake, Oral 120 110 Number 0 1 Bowel Movements Output, Urine 900 900 Patient 60.328 kg Weight Physical Exam General Appearance: no apparent distress, alert, awake, mild distress, sitting in tripod position due to back pain. Head: atraumatic, normal appearance Eyes: Bilateral: normal appearance, PERRL, EOMI, pale conjunctivae. Ears, Nose, Throat: normal pharynx, normal ENT inspection, hearing grossly normal Neck: normal inspection, supple Respiratory: chest non-tender, no respiratory distress, crackles present at the bases. Cardiovascular: regular rate/rhythm, normal peripheral pulses Peripheral Pulses: 2+ radial (R), 2+ radial (L) Gastrointestinal: normal bowel sounds, soft, non-tender Last 48 Hrs of Labs/A[place]: Laboratory Tests 09/10/16 0515: pH 7.36, pCO2 59 H, pO2 87, HCO3 33 H, ABG O2 Sat (Measured) 96.0, P-50 (Temp Corrected) N, Carboxyhemoglobin 0.8 L, O2 Concentration % .40, Respiration Rate 22, O2 Delivery Method BIPAP, Vent Mode ST, Expiratory Pressure 6, Inspiratory Pressure 20, Phlebotomy Draw Site RIGHT RADIAL 09/10/16 0452: Anion Gap 10, Estimated GFR > 60, Glucose 134 H, Calcium 8.3 L, Phosphorus 3.9 , Magnesium 1.8, Total Bilirubin 0.2, Direct Bilirubin 0.2, AST 47 H, ALT 46, Alkaline Phosphatase 388 H, Troponin I < 0.01, Total Protein 6.0 L, Albumin 3.0 L, CBC w Diff MAN DIFF ORDERED, RBC 3.18 L, MCV 86.7, MCH 27.5, RDW 17.6 H, MPV 9.3, Segmented Neutrophils 92 H, Lymphocytes 5 L, Monocytes 3, Nucleated RBCs 1 H, Platelet Estimate ADEQUATE, Polychromasia 1+, Hypochromic- Microcytic 1+, Poikilocytosis 1+, Ovalocytes 1+, PUBS MCHC 31.7 L, Fld Total RBCs Counted 100 09/09/16 2250: pH 7.27 *L, pCO2 65 *H, pO2 99, HCO3 29 H, ABG O2 Sat (Measured) 96.0, Carboxyhemoglobin 1.2 L, O2 Concentration % .4, Respiration Rate 22, O2 Delivery Method BIPAP, Vent Mode ST, Expiratory Pressure 6, Inspiratory Pressure 20, Phlebotomy Draw Site RIGHT BRACHIAL 09/09/16 2249: Troponin I 0.01, Urine Opiates Screen < 100.00, Methadone Screen > 735 H, Barbiturate Screen < 60, Ur Phencyclidine Scrn 6.20, Amphetamines Screen < 100, U Benzodiazepines Scrn > 800 H, Urine Cocaine Screen < 50, Urine Cannabis Screen < 5.00, Urine Color YEL, Urine Clarity HAZY H, Urine pH 6.0, Ur Specific [place] 1.025, Urine Protein 30 H, Urine Ketones NEG, Urine Nitrite POS H, Urine Bilirubin NEG, Urine Urobilinogen 0.2, Ur Leukocyte Esterase SMALL H, Ur Microscopic SEDIMENT EXAMINED, Urine RBC 5-10 H, Urine WBC 15-25 H, Ur Epithelial Cells RARE, Hyaline Casts 5-10 H, Urine Hemoglobin MOD H, Urine Glucose NEG 09/09/16 2100: pH 7.25 *L, pCO2 71 *H, pO2 114 H, HCO3 31 H, ABG O2 Sat (Measured) 98.0, Carboxyhemoglobin 1.0 L, O2 Concentration % .5, Respiration Rate 22, O2 Delivery Method BIPAP, Vent Mode ST, Expiratory Pressure 4, Inspiratory Pressure 20, Phlebotomy Draw Site RIGHT RADIAL 09/09/16 1745: Anion Gap 10, Estimated GFR 58 L, BUN/Creatinine Ratio 31.0 H, Glucose 127 H, Calcium 8.4, Magnesium 1.5 L, Total Bilirubin 0.4, AST 60 H, ALT 49, Alkaline Phosphatase 407 H, Troponin I < 0.01, Joi-F-Xngmmmsvprt Pept 7870 H, Total Protein 6.3, Albumin 3.3 L, Globulin 3.0, Albumin/Globulin Ratio 1.1, TSH < 0.015 L, Free T4 1.59, CBC w Diff NO MAN DIFF REQ, RBC 3.16 L, MCV 87.9, MCH 28.3, RDW 17.6 H, MPV 9.4, Gran % 77.6 H, Lymphocytes % 16.8 L, Monocytes % 5.6, Eosinophils % 0, Basophils % 0 L, Absolute Granulocytes 5.8, Absolute Lymphocytes 1.3, Absolute Monocytes 0.4, Absolute Eosinophils 0, Absolute Basophils 0, PUBS MCHC 32.1 L, Serum Alcohol < 10.0, Acetone Level POSITIVE AT 1:4 DIL 09/09/16 1740: pH 7.28 *L, pCO2 71 *H, pO2 56 L, HCO3 32 H, ABG O2 Sat (Measured) 86.0 L, Carboxyhemoglobin 1.9, O2 Concentration % 5L, O2 Delivery Method NC, Phlebotomy Draw Site LEFT RADIAL Assessment/Plan Impression/Plan: Patient is a 55 YO F with PMH significant for COPD on 4L home oxygen, IDDM, peripheral neuropathy and gastroparesis, anxiety/depression, paroxysmal A.fib not on anticoagultion, Graves disease, chronic pain syndrome on methadone program, OA, recently admitted for comminuted fracture of mandible and transfered to [facility]. She came here with shortness of breath, productive cough with greenish phlegm, fever Tmax 103, poor oral intake for last 2-3 days, intermittent confusion and dry heaving. When she came to ER her temperature was 97.6, pulse 94, respiratory rate 28, blood pressure 196/85 and oxygen saturation 85% on 4 L. Her ABG in ER are worse requiring BiPAP overnight. Plan: Acute on Chronic hypercarbic respiratory acidosis * she was on BiPAP overnight. * Today morning she was on 4L of oxygen, desaturating to 89% occasionally * Started solumedrol Q6 changed to solumedrol 40mg Q8. * TRC/nebs Diabetes mellitus with peripheral neuropathy * She was found to have metabolic acidosis in ER despite respiratory acidosis. * Her sugars are maintained between 140-170 during night * However she was placed on steroids, so placed on a new sliding scale to be cautious Graves disease * TSH is low with normal free T4 * continue methimazole 15mg for now Chronic pain syndrome * On methadone program Code Status * Full Code Consult Acknowledgment - Thank you for your consult request. TED FITCH MD 09/10/16 1116: Assessment/Plan Other Findings/Comments: Ted Mace M.D. have examined this patient, reviewed available EMR data, personally reviewed images, discussed with resident/PA/HOUSING COUNSELOR, discussed management plan with housestaff and nursing staff, discussed managment plan all of healthcare providers, discussed management plan with patient and/or family, agreed with resident/PA/HOUSING COUNSELOR. The past history and parts of the chart have been autopopulated. TTS 40 min Acute hypercarbic respiratory failure Possible CAP Hx a.fib, DM Cardiology and endocrinology consultations Reduce solumedrol to 40mg iv q8h sputum cx TRC/Nebs cont abx DVT prophylaxis at all times Consult Acknowledgment - Thank you for your consult request.
[2016-09-10 08:00] VITALS: BP 140/60
--- NOTE | 2016-09-10 08:15 | NUR ---
REC'D THE PT SITTING UP IN BED CROSSED LEGGED EATING BREAKFAST. PT IS A&OX2 OFF TO TIME AND REORIENTED WITH NO EFFECT-STILL REMAINS OFF TO TIME. DIALLO. PT C/O SHARP 9/10 BACK PAIN WHICH PER PT IS HER BASELINE CHRONIC BACK PAIN LEVEL. PT IS IN A NSR WITHOUT ECTOPY PER THE MONITORING MANAGER. PT'S BS ARE TACHYPNEIC AND DIMINSHED THROUGHOUT. BECOMES SOB WITH TALKING AND EXERTION, HAS TO BE REPEATEDLY REMINDED NOT TO TALK AND TAKE DEEP BREATHS. O2 SAT IS 93-95% WHEN AT REST AND NOT TALKING. 89-90% WITH TALKING. ABD IS SOFT WITH NORMOACTIVE BOWEL SOUNDS. HAS NOT VOIDED YET THIS SHIFT.
--- NOTE | 2016-09-10 08:18 | RADIOLOGY REPORT ---
EXAMINATION: XR PORTABLE CHEST CLINICAL INFORMATION: Shortness of breath and cough. COMPARISON: 09/09/2016 TECHNIQUE: Portable view of the chest was obtained. FINDINGS: Cardiac leads overlie the chest. The lungs are well expanded. Small left pleural effusion is unchanged. Prominent interstitial markings remain, similar to prior. No pneumothorax. The cardiomediastinal silhouette is unchanged. No acute osseous abnormality. IMPRESSION: No significant change from prior. Small left pleural effusion. Prominent interstitial markings suggestive of interstitial edema.
--- NOTE | 2016-09-10 09:45 | Cons- Endocrinology ---
General Information and HPI Consulting Request Date of Consult: 09/10/16 Requested By: ICU team Reason for Consult: management of DM type 1 and Graves' disease Source of Information: patient, old records Exam Limitations: no limitations History of Present Illness: 55 y/o female, Hx of smoking, COPD, brittle diabetes type 1 and Graves' disease, was admitted for respiratory distress due to COPD exacerbation along with significantly elevated BNP of 7870. She was on BIPAP and was put on Solumedrol 40 mg every 6 hours. At home, she was on Toujeo 20 units daily and humalog before meals according to carbohydrates counting. In hospital, she was put on Levemir 10 units twice a day , Novolog coverage before meals. Her FSGs were 141, 148 and 172. With regards to Graves' disease, she was on Methimazole 15 mg daily. Repeat TSH < 0.015 and free T4 1.59. Allergies/Medications Allergies: Coded Allergies: No Known Allergies (05/16/16) PER PT VERBALLY VERIFIED TAKES 81MG ASA Home Med List: Albuterol Sulfate (Proair Hfa) 8.5 GM HFA.AER.AD 2 PUF INH Q4-6 PRN PRN BREATHING (Reported) Alprazolam (Xanax) 1 MG TABLET 1 TAB PO TIDPRN PRN ANXIETY (Reported) Aspirin (Ecotrin*) 81 MG TABLET.DR 1 TAB PO DAILY HEART/BLOOD (Reported) Budesonide/Formoterol Fumarate (Symbicort 160-4.5 Mcg Inhaler) 10.2 GM HFA.AER.AD 2 PUF INH BID copd (Reported) Ergocalciferol (Vitamin D2) (Vitamin D2) 50,000 UNIT CAPSULE 1 CAP PO QFRI SUPPLEMENT (Reported) Hydroxyzine HCl 25 MG TABLET 1-2 TAB PO TID PRN ITCHING Insulin Aspart (Novolog) 100 UNIT/ML VIAL 0 UNITS SC SI diabetes BEFORE MEALS Blood Insulin Sugar Units <80 0 81-150 0 151-200 2 201-250 3 251-300 4 301-350 5 351-400 6 >400 7 Call Doctor AT BEDTIME Blood Insulin Sugar Units <80 0 81-100 0 101-200 0 201-250 0 251-300 0 301-350 2 351-400 3 >400 4 Call Doctor Insulin Glargine,Hum.rec.anlog (Toujeo Solostar) 300 UNIT/1 ML INSULN.PEN 20 UNITS SC 0900 DIABETES (Reported) Methadone HCl (Dolophine HCl) 10 MG TABLET 10 TAB PO 0500 CHRONIC PAIN ( Reported) Methimazole 5 MG TABLET 15 MG PO DAILY GRAVES DISEASE (Reported) Metoclopramide HCl (Reglan) 5 MG TABLET 1 TAB PO Q6P PRN NAUSEA Pregabalin (Lyrica) 75 MG CAPSULE 1 CAP PO BID NERVE PAIN (Reported) Propranolol HCl 20 MG TABLET 1 TAB PO BID PRN TACHYCARDIA (Reported) Trazodone HCl 50 MG TABLET 1 TAB PO QPM PRN Sleep (Reported) Review of Systems Review of Systems Constitutional: Reports: see HPI. Cardiovascular: Denies: chest pain. Respiratory: Reports: short of breath. GI: Denies: abdominal pain. Hematologic/Endocrine: Denies: polyuria, polydipsia. Past History Travel History Traveled to [place] past 21 day No Medical History Blood Transfusion Hx: No Neurological: dizziness, peripheral neuropathy EENT: NONE Cardiovascular: ABNORMAL ekg Respiratory: asthma, bronchitis, COPD, 2-3LNC O2 DEPENDENT Gastrointestinal: GASTROPARESIS Hepatic: TRANSAMINITIS Renal: NONE Musculoskeletal: chronic back pain, degen joint disease, falls, osteoporosis, SCOLIOSIS Psychiatric: anxiety Endocrine: diabetes, diabetic ketoacidosis, Grave's disease Blood Disorders: NONE Cancer(s): NONE [employer] OTHER RANKS/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 SON (IDDM). FATHER (pancreatic cancer). Relation not specified for: FH: diabetes mellitus FH: thyroid disease Psychosocial History Where Do You Live? Home Who Do You Live With? child Services at Home: Oxygen Smoking Status: Current Everyday Smoker (10 cig/day) ETOH Use: denies use Illicit Drug Use: denies illicit drug use Functional Ability ADLs Independent: dressing, eating, toileting, bathing. Ambulation: independent IADLs Independent: shopping, housework, finances, food prep, telephone, transportation , medication admin. Exam & Diagnostic Data Last 24 Hrs of Vital Signs/I&O Vital Signs Date Time Temp Pulse Resp B/P Pulse O2 O2 Flow FiO2 Ox Delivery Rate 09/10 812 86 96 09/10 799 93 BIPAP 40% 09/10 799 98.9 86 26 140/60 93 BIPAP 40% 09/10 0800 95 Nasal 4.0L Cannula 09/10 0526 82 96 09/10 0400 96 BIPAP 40% 09/10 0250 84 97 09/10 0052 85 94 09/10 0000 98 BIPAP 40% 09/10 0000 97.6 80 24 142/61 98 BIPAP 40% 09/09 2130 BIPAP 40% 09/09 2052 82 100 09/09 1939 84 20 152/74 100 BIPAP 50% 09/09 1849 83 Nasal 4.0L Cannula 09/09 1846 88 100 09/09 1837 98.6 87 18 180/78 100 BIPAP 60% 09/09 1751 89 Nasal 5.0L Cannula 09/09 1709 97.6 94 28 196/85 93 Nasal 4.0L Cannula Intake & Output 09/10 1600 09/10 0800 09/10 0000 Intake Total 120 2960 Output Total 900 900 Balance -780 2060 Intake, IV 0 2850 Intake, Oral 120 110 Number 0 1 Bowel Movements Output, Urine 900 900 Patient 133 lb Weight Physical Exam General Appearance: mild distress Neck: thyromegaly Respiratory: decreased breath sounds, rhonchi, wheezing Cardiovascular: tachycardia (mild) Extremities: swelling (trace) Labs/[place]rie Results: Laboratory Tests 09/10 09/10 0515 0452 Blood Gas pH (7.35 - 7.45 PH) 7.36 pCO2 (35 - 45 TORR) 59 H pO2 (80 - 100 TORR) 87 HCO3 (21 - 28 MEQ/L) 33 H ABG O2 Sat (Measured) (>96.0 %) 96.0 P-50 (Temp Corrected) N Carboxyhemoglobin (1.5 - 5.0 %) 0.8 L O2 Concentration % .40 Respiration Rate (BPM) 22 O2 Delivery Method BIPAP Vent Mode ST Expiratory Pressure (CM H2O P) 6 Inspiratory Pressure (CM H2O P) 20 Chemistry Sodium (137 - 145 mmol/L) 135 L Potassium (3.5 - 5.1 mmol/L) 4.8 Chloride (98 - 107 mmol/L) 91 L Carbon Dioxide (22 - 30 mmol/L) 34 H Anion Gap (5 - 16) 10 BUN (7 - 17 mg/dL) 28 H Creatinine (0.5 - 1.0 mg/dL) 0.8 Estimated GFR (>60 ml/min) > 60 Glucose (65 - 99 mg/dL) 134 H Calcium (8.4 - 10.2 mg/dL) 8.3 L Phosphorus (2.5 - 4.5 mg/dL) 3.9 Magnesium (1.6 - 2.3 mg/dL) 1.8 Total Bilirubin (0.2 - 1.3 mg/dL) 0.2 Direct Bilirubin (< 0.4 mg/dL) 0.2 AST (14 - 36 U/L) 47 H ALT (9 - 52 U/L) 46 Alkaline Phosphatase (<127 U/L) 388 H Troponin I (< 0.11 ng/ml) < 0.01 Total Protein (6.3 - 8.2 g/dL) 6.0 L Albumin (3.5 - 5.0 g/dL) 3.0 L Hematology CBC w Diff MAN DIFF ORDERED WBC (4.8 - 10.8 /CUMM) 6.4 RBC (4.20 - 5.40 /CUMM) 3.18 L Hgb (12.0 - 16.0 G/DL) 8.7 L Hct (37 - 47 %) 27.5 L MCV (81.0 - 99.0 FL) 86.7 MCH (27.0 - 31.0 PG) 27.5 RDW (11.5 - 14.5 %) 17.6 H Plt Count (130 - 400 /CUMM) 348 MPV (7.4 - 10.4 FL) 9.3 Segmented Neutrophils (42.2 - 75.2 %) 92 H Lymphocytes (20.5 - 51.1 %) 5 L Monocytes (1.7 - 9.3 %) 3 Nucleated RBCs (0.0 - 0.0 /100WBC) 1 H Platelet Estimate (ADEQUATE) ADEQUATE Polychromasia 1+ Hypochromic-Microcytic 1+ Poikilocytosis 1+ Ovalocytes 1+ PUBS MCHC (33.0 - 37.0 G/DL) 31.7 L Miscellaneous Phlebotomy Draw Site RIGHT RADIAL Other Body Source Fld Total RBCs Counted (%) 100 09/09 09/09 4580 2243 Blood Gas pH (7.35 - 7.45 PH) 7.27 *L pCO2 (35 - 45 TORR) 65 *H pO2 (80 - 100 TORR) 99 HCO3 (21 - 28 MEQ/L) 29 H ABG O2 Sat (Measured) (>96.0 %) 96.0 Carboxyhemoglobin (1.5 - 5.0 %) 1.2 L O2 Concentration % .4 Respiration Rate (BPM) 22 O2 Delivery Method BIPAP Vent Mode ST Expiratory Pressure (CM H2O P) 6 Inspiratory Pressure (CM H2O P) 20 Chemistry Troponin I (< 0.11 ng/ml) 0.01 Miscellaneous Phlebotomy Draw Site RIGHT BRACHIAL Toxicology Urine Opiates Screen (>2000 NG/ML) < 100.00 Methadone Screen (>300 NG/ML) > 735 H Barbiturate Screen (>200 NG/ML) < 60 Ur Phencyclidine Scrn (>25 NG/ML) 6.20 Amphetamines Screen (>1000 NG/ML) < 100 U Benzodiazepines Scrn (>200 NG/ML) > 800 H Urine Cocaine Screen (>300 NG/ML) < 50 Urine Cannabis Screen (>50 NG/ML) < 5.00 Urines Urine Color (YEL,AMB,STR) YEL Urine Clarity (CLEAR) HAZY H Urine pH (5.0 - 8.0) 6.0 Ur Specific [place] (1.001 - 1.035) 1.025 Urine Protein (NEG,<30 MG/DL) 30 H Urine Ketones (NEG) NEG Urine Nitrite (NEG) POS H Urine Bilirubin (NEG) NEG Urine Urobilinogen (0.1 - 1.0 EU/dl) 0.2 Ur Leukocyte Esterase (NEG) SMALL H Ur Microscopic SEDIMENT EXAMINED Urine RBC (0 - 5 /HPF) 5-10 H Urine WBC (0 - 2 /HPF) 15-25 H Ur Epithelial Cells (NONE,FEW) RARE Hyaline Casts (0/LPF) 5-10 H Urine Hemoglobin (NEG) MOD H Urine Glucose (N MG/DL) NEG 09/09 09/09 2100 1745 Blood Gas pH (7.35 - 7.45 PH) 7.25 *L pCO2 (35 - 45 TORR) 71 *H pO2 (80 - 100 TORR) 114 H HCO3 (21 - 28 MEQ/L) 31 H ABG O2 Sat (Measured) (>96.0 %) 98.0 Carboxyhemoglobin (1.5 - 5.0 %) 1.0 L O2 Concentration % .5 Respiration Rate (BPM) 22 O2 Delivery Method BIPAP Vent Mode ST Expiratory Pressure (CM H2O P) 4 Inspiratory Pressure (CM H2O P) 20 Chemistry Sodium (137 - 145 mmol/L) 132 L Potassium (3.5 - 5.1 mmol/L) 5.4 H Chloride (98 - 107 mmol/L) 90 L Carbon Dioxide (22 - 30 mmol/L) 33 H Anion Gap (5 - 16) 10 BUN (7 - 17 mg/dL) 31 H Creatinine (0.5 - 1.0 mg/dL) 1.0 Estimated GFR (>60 ml/min) 58 L BUN/Creatinine Ratio (7 - 25 %) 31.0 H Glucose (65 - 99 mg/dL) 127 H Calcium (8.4 - 10.2 mg/dL) 8.4 Magnesium (1.6 - 2.3 mg/dL) 1.5 L Total Bilirubin (0.2 - 1.3 mg/dL) 0.4 AST (14 - 36 U/L) 60 H ALT (9 - 52 U/L) 49 Alkaline Phosphatase (<127 U/L) 407 H Troponin I (< 0.11 ng/ml) < 0.01 [id number] Pept (<125 pg/mL) 7870 H Total Protein (6.3 - 8.2 g/dL) 6.3 Albumin (3.5 - 5.0 g/dL) 3.3 L Globulin (1.9 - 4.2 gm/dL) 3.0 Albumin/Globulin Ratio (1.1 - 2.2 %) 1.1 TSH (0.270 - 4.200 uIU/mL) < 0.015 L Free T4 (0.64 - 1.79 ng/dL) 1.59 Hematology CBC w Diff NO MAN DIFF REQ WBC (4.8 - 10.8 /CUMM) 7.4 RBC (4.20 - 5.40 /CUMM) 3.16 L Hgb (12.0 - 16.0 G/DL) 8.9 L Hct (37 - 47 %) 27.8 L MCV (81.0 - 99.0 FL) 87.9 MCH (27.0 - 31.0 PG) 28.3 RDW (11.5 - 14.5 %) 17.6 H Plt Count (130 - 400 /CUMM) 333 MPV (7.4 - 10.4 FL) 9.4 Gran % (42.2 - 75.2 %) 77.6 H Lymphocytes % (20.5 - 51.1 %) 16.8 L Monocytes % (1.7 - 9.3 %) 5.6 Eosinophils % (0 - 5 %) 0 Basophils % (0.0 - 2.0 %) 0 L Absolute Granulocytes (1.4 - 6.5 /CUMM) 5.8 Absolute Lymphocytes (1.2 - 3.4 /CUMM) 1.3 Absolute Monocytes (0.10 - 0.60 /CUMM) 0.4 Absolute Eosinophils (0.0 - 0.7 /CUMM) 0 Absolute Basophils (0.0 - 0.2 /CUMM) 0 PUBS MCHC (33.0 - 37.0 G/DL) 32.1 L Miscellaneous Phlebotomy Draw Site RIGHT RADIAL Toxicology Serum Alcohol (<10 MG/DL) < 10.0 Acetone Level (NEGATIVE) POSITIVE AT 1:4 DIL 09/09 1740 Blood Gas pH (7.35 - 7.45 PH) 7.28 *L pCO2 (35 - 45 TORR) 71 *H pO2 (80 - 100 TORR) 56 L HCO3 (21 - 28 MEQ/L) 32 H ABG O2 Sat (Measured) (>96.0 %) 86.0 L Carboxyhemoglobin (1.5 - 5.0 %) 1.9 O2 Concentration % 5L O2 Delivery Method NC Miscellaneous Phlebotomy Draw Site LEFT RADIAL Assessment/Plan Assessment/Plan 55 y/o female, Hx of smoking, COPD, brittle diabetes type 1 and Graves' disease, was admitted for respiratory distress due to COPD exacerbation along with significantly elevated BNP of 7870. She was on BIPAP and was put on Solumedrol 40 mg every 6 hours. 1. Graves' disease: continue Methimazole 15 mg daily for now. 2. DM type 1: continue Levemir 1o units twice a day adjust Novolog coverage before meals and add Novolog coverage at bedtime--- detail see the inpatient DM order. monitor FSGs will follow. Inpatient Diabetes Orders Before Each Meal: Bolus Insulin: Novolog < 80 mg/dl: no coverage 80-100 mg/dl: 2 units 101-120 mg/dl: 2 units 121-150 mg/dl: 2 units 151-200 mg/dl: 3 units 201-250 mg/dl: 4 units 251-300 mg/dl: 5 units 301-350 mg/dl: 6 units 351-400 mg/dl: 8 units > 400 mg/dl: 10 units Bedtime: Bolus Insulin: Novolog < 80 mg/dl: no coverage 80-100 mg/dl: no coverage 101-120 mg/dl: no coverage 121-150 mg/dl: no coverage 151-200 mg/dl: no coverage 201-250 mg/dl: no coverage 251-300 mg/dl: 2 units 301-350 mg/dl: 3 units 351-400 mg/dl: 4 units > 400 mg/dl: 5 units Consult Acknowledgment - Thank you for your consult request.
--- NOTE | 2016-09-10 10:52 | Cons- Cardiology ---
General Information and HPI Consulting Request Date of Consult: 09/10/16 Requested By: SHITAL ACKERMAN MD Reason for Consult: Respiratory failure and elevated BNP in a patient with known chronic COPD. Source of Information: patient, old records Exam Limitations: poor historian History of Present Illness: I'm asked to see Loni Turcios, a 55-year-old female who I have seen before. This patient has very severe COPD, oxygen dependent. She was here a couple of times last year with respiratory failure. She presents again with increasing shortness of breath. She does not have any chest pain. She does not have any known heart disease. She is Diabetic. Her last echocardiogram documented moderate pulmonary hypertension but normal left ventricular systolic function. She did have some diastolic dysfunction. Allergies/Medications Allergies: Coded Allergies: No Known Allergies (05/16/16) PER PT VERBALLY VERIFIED TAKES 81MG ASA Home Med List: Albuterol Sulfate (Proair Hfa) 8.5 GM HFA.AER.AD 2 PUF INH Q4-6 PRN PRN BREATHING (Reported) Alprazolam (Xanax) 1 MG TABLET 1 TAB PO TIDPRN PRN ANXIETY (Reported) Aspirin (Ecotrin*) 81 MG TABLET.DR 1 TAB PO DAILY HEART/BLOOD (Reported) Budesonide/Formoterol Fumarate (Symbicort 160-4.5 Mcg Inhaler) 10.2 GM HFA.AER.AD 2 PUF INH BID copd (Reported) Ergocalciferol (Vitamin D2) (Vitamin D2) 50,000 UNIT CAPSULE 1 CAP PO QFRI SUPPLEMENT (Reported) Hydroxyzine HCl 25 MG TABLET 1-2 TAB PO TID PRN ITCHING Insulin Aspart (Novolog) 100 UNIT/ML VIAL 0 UNITS SC SI diabetes BEFORE MEALS Blood Insulin Sugar Units <80 0 81-150 0 151-200 2 201-250 3 251-300 4 301-350 5 351-400 6 >400 7 Call Doctor AT BEDTIME Blood Insulin Sugar Units <80 0 81-100 0 101-200 0 201-250 0 251-300 0 301-350 2 351-400 3 >400 4 Call Doctor Insulin Glargine,Hum.rec.anlog (Toujeo Solostar) 300 UNIT/1 ML INSULN.PEN 20 UNITS SC 0900 DIABETES (Reported) Methadone HCl (Dolophine HCl) 10 MG TABLET 10 TAB PO 0500 CHRONIC PAIN ( Reported) Methimazole 5 MG TABLET 15 MG PO DAILY GRAVES DISEASE (Reported) Metoclopramide HCl (Reglan) 5 MG TABLET 1 TAB PO Q6P PRN NAUSEA Pregabalin (Lyrica) 75 MG CAPSULE 1 CAP PO BID NERVE PAIN (Reported) Propranolol HCl 20 MG TABLET 1 TAB PO BID PRN TACHYCARDIA (Reported) Trazodone HCl 50 MG TABLET 1 TAB PO QPM PRN Sleep (Reported) Current Medications: Current Medications Sig/Cathy Start time Last Medication Dose Route Stop Time Status Admin Albuterol Sulfate 3 ML TID 09/09 2200 AC 09/10 INH 0813 Albuterol Sulfate 3 ML ONCE ONE 09/09 1715 DC 09/09 INH 09/09 1716 1750 Alprazolam 0.25 MG TID PRN 09/09 2145 AC 09/10 PO 09/16 2144 0516 Aspirin Buffered 81 MG DAILY 09/10 1000 AC 09/10 PO 1043 Azithromycin 500 MG DAILY 09/10 1000 AC 09/10 Sodium Chloride 250 ML IV 1043 Azithromycin 500 MG ONCE ONE 09/09 1815 DC 09/09 Sodium Chloride 250 ML IV 09/09 1914 1823 Budesonide/ 2 PUF BID 09/09 2200 AC 09/10 Formoterol Fumarate INH 1043 Ceftriaxone Sodium 1,000 MG AT BEDTIME 09/09 2200 AC 09/09 IV 2300 Enoxaparin Sodium 40 MG DAILY 09/10 1000 AC SC Furosemide 0 .STK-MED ONE 09/09 202 DC IV Furosemide 20 MG ONCE ONE 09/09 2014 DC 09/09 IV 09/09 Insulin Aspart 0 TIDAC/HS 09/10 1200 AC SC Insulin Aspart 0 TIDAC 09/10 0800 DC SC Insulin Detemir 10 UNITS BID 09/09 2200 AC 09/10 SC 1043 Magnesium Sulfate 1 GM Q2H 09/09 1700 DC 09/09 Dextrose/Water 100 ML IV 09/09 205 2130 Methadone HCl 100 MG 0500 09/10 0500 AC 09/10 PO 0516 Methimazole 15 MG DAILY 09/10 1000 AC 09/10 PO 1043 Methylprednisolone 40 MG Q6 09/10 0600 AC 09/10 IV 0516 Methylprednisolone 40 MG Q8 09/09 2200 DC IV Methylprednisolone 125 MG ONCE ONE 09/09 1815 DC 09/09 IV 09/09 1816 1813 Methylprednisolone 0 .STK-MED ONE 09/09 1811 DC .ROUTE Nicotine 14 MG DAILY 09/10 1000 AC 09/10 TOP 1043 Nicotine 21 MG DAILY 09/10 1000 CAN TOP Pregabalin 75 MG BID 09/09 2200 AC 09/10 PO 1043 Sodium Chloride 1,000 ML BOLUS ONE 09/09 1800 DC 09/09 IV 09/09 1959 1813 Trazodone HCl 50 MG QPM PRN 09/09 2014 AC PO Review of Systems Review of Systems: Her only complaint at this time is shortness of breath, she has no other complaints in the review of systems Past History Travel History Traveled to [place] past 21 day No Medical History Blood Transfusion Hx: No Neurological: dizziness, peripheral neuropathy EENT: NONE Cardiovascular: ABNORMAL ekg Respiratory: asthma, bronchitis, COPD, 2-3LNC O2 DEPENDENT Gastrointestinal: GASTROPARESIS Hepatic: TRANSAMINITIS Renal: NONE Musculoskeletal: chronic back pain, degen joint disease, falls, osteoporosis, SCOLIOSIS Psychiatric: anxiety Endocrine: diabetes, diabetic ketoacidosis, Grave's disease Blood Disorders: NONE Cancer(s): NONE [employer]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 SON (IDDM). FATHER (pancreatic cancer). Relation not specified for: FH: diabetes mellitus FH: thyroid disease Psychosocial History Where Do You Live? Home Who Do You Live With? child Services at Home: Oxygen Smoking Status: Current Everyday Smoker (10 cig/day) ETOH Use: denies use Illicit Drug Use: denies illicit drug use Functional Ability ADLs Independent: dressing, eating, toileting, bathing. Ambulation: independent IADLs Independent: shopping, housework, finances, food prep, telephone, transportation , medication admin. Exam & Diagnostic Data Vital Signs and I&O Vital Signs Date Time Temp Pulse Resp B/P Pulse O2 O2 Flow FiO2 Ox Delivery Rate 09/10 812 86 96 09/10 08 93 BIPAP 40% 09/10 08 98.9 86 26 140/60 93 BIPAP 40% 09/10 0800 95 Nasal 4.0L Cannula 09/10 0526 82 96 09/10 0400 96 BIPAP 40% 09/10 0250 84 97 09/10 0052 85 94 09/10 0000 98 BIPAP 40% 09/10 0000 97.6 80 24 142/61 98 BIPAP 40% 09/090 BIPAP 40% 09/09 2052 82 100 09/09 1939 84 20 152/74 100 BIPAP 50% 09/09 1849 83 Nasal 4.0L Cannula 09/09 184 88 100 09/09 1837 98.6 87 18 180/78 100 BIPAP 60% 09/09 1751 89 Nasal 5.0L Cannula 09/09 1709 97.6 94 28 196/85 93 Nasal 4.0L Cannula Intake & Output 09/10 1600 09/10 0800 09/10 0000 09/09 1600 09/09 0809/09 0000 Intake Total 120 2960 Output Total 900 900 Balance -780 2060 Intake, IV 0 2850 Intake, Oral 120 110 Number 0 1 Bowel Movements Output, Urine 900 900 Patient 133 lb Weight Physical Exam: She is a chronically ill appearing middle-aged female, mildly dyspneic. HEENT exam is normal Neck veins not distended Chest reveals markedly decreased breath sounds throughout. There are no rales. Heart reveals regular rhythm with a grade 2/6 holosystolic murmur at the apex Extremities reveal no edema Labs/Arie Results: Laboratory Tests 09/10 09/10 0515 0452 Blood Gas pH (7.35 - 7.45 PH) 7.36 pCO2 (35 - 45 TORR) 59 H pO2 (80 - 100 TORR) 87 HCO3 (21 - 28 MEQ/L) 33 H ABG O2 Sat (Measured) (>96.0 %) 96.0 P-50 (Temp Corrected) N Carboxyhemoglobin (1.5 - 5.0 %) 0.8 L O2 Concentration % .40 Respiration Rate (BPM) 22 O2 Delivery Method BIPAP Vent Mode ST Expiratory Pressure (CM H2O P) 6 Inspiratory Pressure (CM H2O P) 20 Chemistry Sodium (137 - 145 mmol/L) 135 L Potassium (3.5 - 5.1 mmol/L) 4.8 Chloride (98 - 107 mmol/L) 91 L Carbon Dioxide (22 - 30 mmol/L) 34 H Anion Gap (5 - 16) 10 BUN (7 - 17 mg/dL) 28 H Creatinine (0.5 - 1.0 mg/dL) 0.8 Estimated GFR (>60 ml/min) > 60 Glucose (65 - 99 mg/dL) 134 H Calcium (8.4 - 10.2 mg/dL) 8.3 L Phosphorus (2.5 - 4.5 mg/dL) 3.9 Magnesium (1.6 - 2.3 mg/dL) 1.8 Total Bilirubin (0.2 - 1.3 mg/dL) 0.2 Direct Bilirubin (< 0.4 mg/dL) 0.2 AST (14 - 36 U/L) 47 H ALT (9 - 52 U/L) 46 Alkaline Phosphatase (<127 U/L) 388 H Troponin I (< 0.11 ng/ml) < 0.01 Total Protein (6.3 - 8.2 g/dL) 6.0 L Albumin (3.5 - 5.0 g/dL) 3.0 L Hematology CBC w Diff MAN DIFF ORDERED WBC (4.8 - 10.8 /CUMM) 6.4 RBC (4.20 - 5.40 /CUMM) 3.18 L Hgb (12.0 - 16.0 G/DL) 8.7 L Hct (37 - 47 %) 27.5 L MCV (81.0 - 99.0 FL) 86.7 MCH (27.0 - 31.0 PG) 27.5 RDW (11.5 - 14.5 %) 17.6 H Plt Count (130 - 400 /CUMM) 348 MPV (7.4 - 10.4 FL) 9.3 Segmented Neutrophils (42.2 - 75.2 %) 92 H Lymphocytes (20.5 - 51.1 %) 5 L Monocytes (1.7 - 9.3 %) 3 Nucleated RBCs (0.0 - 0.0 /100WBC) 1 H Platelet Estimate (ADEQUATE) ADEQUATE Polychromasia 1+ Hypochromic-Microcytic 1+ Poikilocytosis 1+ Ovalocytes 1+ PUBS MCHC (33.0 - 37.0 G/DL) 31.7 L Miscellaneous Phlebotomy Draw Site RIGHT RADIAL Other Body Source Fld Total RBCs Counted (%) 100 09/09 09/09 6270 0626 Blood Gas pH (7.35 - 7.45 PH) 7.27 *L pCO2 (35 - 45 TORR) 65 *H pO2 (80 - 100 TORR) 99 HCO3 (21 - 28 MEQ/L) 29 H ABG O2 Sat (Measured) (>96.0 %) 96.0 Carboxyhemoglobin (1.5 - 5.0 %) 1.2 L O2 Concentration % .4 Respiration Rate (BPM) 22 O2 Delivery Method BIPAP Vent Mode ST Expiratory Pressure (CM H2O P) 6 Inspiratory Pressure (CM H2O P) 20 Chemistry Troponin I (< 0.11 ng/ml) 0.01 Miscellaneous Phlebotomy Draw Site RIGHT BRACHIAL Toxicology Urine Opiates Screen (>2000 NG/ML) < 100.00 Methadone Screen (>300 NG/ML) > 735 H Barbiturate Screen (>200 NG/ML) < 60 Ur Phencyclidine Scrn (>25 NG/ML) 6.20 Amphetamines Screen (>1000 NG/ML) < 100 U Benzodiazepines Scrn (>200 NG/ML) > 800 H Urine Cocaine Screen (>300 NG/ML) < 50 Urine Cannabis Screen (>50 NG/ML) < 5.00 Urines Urine Color (YEL,AMB,STR) YEL Urine Clarity (CLEAR) HAZY H Urine pH (5.0 - 8.0) 6.0 Ur Specific [place] (1.001 - 1.035) 1.025 Urine Protein (NEG,<30 MG/DL) 30 H Urine Ketones (NEG) NEG Urine Nitrite (NEG) POS H Urine Bilirubin (NEG) NEG Urine Urobilinogen (0.1 - 1.0 EU/dl) 0.2 Ur Leukocyte Esterase (NEG) SMALL H Ur Microscopic SEDIMENT EXAMINED Urine RBC (0 - 5 /HPF) 5-10 H Urine WBC (0 - 2 /HPF) 15-25 H Ur Epithelial Cells (NONE,FEW) RARE Hyaline Casts (0/LPF) 5-10 H Urine Hemoglobin (NEG) MOD H Urine Glucose (N MG/DL) NEG 09/09 09/09 2100 1745 Blood Gas pH (7.35 - 7.45 PH) 7.25 *L pCO2 (35 - 45 TORR) 71 *H pO2 (80 - 100 TORR) 114 H HCO3 (21 - 28 MEQ/L) 31 H ABG O2 Sat (Measured) (>96.0 %) 98.0 Carboxyhemoglobin (1.5 - 5.0 %) 1.0 L O2 Concentration % .5 Respiration Rate (BPM) 22 O2 Delivery Method BIPAP Vent Mode ST Expiratory Pressure (CM H2O P) 4 Inspiratory Pressure (CM H2O P) 20 Chemistry Sodium (137 - 145 mmol/L) 132 L Potassium (3.5 - 5.1 mmol/L) 5.4 H Chloride (98 - 107 mmol/L) 90 L Carbon Dioxide (22 - 30 mmol/L) 33 H Anion Gap (5 - 16) 10 BUN (7 - 17 mg/dL) 31 H Creatinine (0.5 - 1.0 mg/dL) 1.0 Estimated GFR (>60 ml/min) 58 L BUN/Creatinine Ratio (7 - 25 %) 31.0 H Glucose (65 - 99 mg/dL) 127 H Calcium (8.4 - 10.2 mg/dL) 8.4 Magnesium (1.6 - 2.3 mg/dL) 1.5 L Total Bilirubin (0.2 - 1.3 mg/dL) 0.4 AST (14 - 36 U/L) 60 H ALT (9 - 52 U/L) 49 Alkaline Phosphatase (<127 U/L) 407 H Troponin I (< 0.11 ng/ml) < 0.01 Mtx-O-Ocphcfftfli Pept (<125 pg/mL) 7870 H Total Protein (6.3 - 8.2 g/dL) 6.3 Albumin (3.5 - 5.0 g/dL) 3.3 L Globulin (1.9 - 4.2 gm/dL) 3.0 Albumin/Globulin Ratio (1.1 - 2.2 %) 1.1 TSH (0.270 - 4.200 uIU/mL) < 0.015 L Free T4 (0.64 - 1.79 ng/dL) 1.59 Hematology CBC w Diff NO MAN DIFF REQ WBC (4.8 - 10.8 /CUMM) 7.4 RBC (4.20 - 5.40 /CUMM) 3.16 L Hgb (12.0 - 16.0 G/DL) 8.9 L Hct (37 - 47 %) 27.8 L MCV (81.0 - 99.0 FL) 87.9 MCH (27.0 - 31.0 PG) 28.3 RDW (11.5 - 14.5 %) 17.6 H Plt Count (130 - 400 /CUMM) 333 MPV (7.4 - 10.4 FL) 9.4 Gran % (42.2 - 75.2 %) 77.6 H Lymphocytes % (20.5 - 51.1 %) 16.8 L Monocytes % (1.7 - 9.3 %) 5.6 Eosinophils % (0 - 5 %) 0 Basophils % (0.0 - 2.0 %) 0 L Absolute Granulocytes (1.4 - 6.5 /CUMM) 5.8 Absolute Lymphocytes (1.2 - 3.4 /CUMM) 1.3 Absolute Monocytes (0.10 - 0.60 /CUMM) 0.4 Absolute Eosinophils (0.0 - 0.7 /CUMM) 0 Absolute Basophils (0.0 - 0.2 /CUMM) 0 PUBS MCHC (33.0 - 37.0 G/DL) 32.1 L Miscellaneous Phlebotomy Draw Site RIGHT RADIAL Toxicology Serum Alcohol (<10 MG/DL) < 10.0 Acetone Level (NEGATIVE) POSITIVE AT 1:4 DIL 09/09 1740 Blood Gas pH (7.35 - 7.45 PH) 7.28 *L pCO2 (35 - 45 TORR) 71 *H pO2 (80 - 100 TORR) 56 L HCO3 (21 - 28 MEQ/L) 32 H ABG O2 Sat (Measured) (>96.0 %) 86.0 L Carboxyhemoglobin (1.5 - 5.0 %) 1.9 O2 Concentration % 5L O2 Delivery Method NC Miscellaneous Phlebotomy Draw Site LEFT RADIAL Diagnostic Data EKG Results The EKG on presentation showed sinus rhythm at a rate of 83 with borderline right axis deviation and poor R-wave progression. Repeat EKG later in the evening was unchanged. Repeat EKG this morning is unchanged except for a single PVC noted. CXR Results PATIENT: LONI TURCIOS PRESENT AGE: 55 PATIENT ACCOUNT NO: [id number] : 61 LOCATION: [facility] ORDERING PHYSICIAN: ERNESTINE SOUTH MD SERVICE DATE: 09/10/16- EXAM TYPE: RAD - XRY-PORTABLE CHEST XRAY EXAMINATION: XR PORTABLE CHEST CLINICAL INFORMATION: Shortness of breath and cough. COMPARISON: 09/09/2016 TECHNIQUE: Portable view of the chest was obtained. FINDINGS: Cardiac leads overlie the chest. The lungs are well expanded. Small left pleural effusion is unchanged. Prominent interstitial markings remain, similar to prior. No pneumothorax. The cardiomediastinal silhouette is unchanged. No acute osseous abnormality. IMPRESSION: No significant change from prior. Small left pleural effusion. Prominent interstitial markings suggestive of interstitial edema. DICTATED BY: GIACOMO ARMENTA MD DATE/TIME DICTATED:09/10/16812 MANAGER OF NETWORK:MITZY DATE/TIME TRANSCRIBED:09/10/16812 CONFIDENTIAL, DO NOT COPY WITHOUT APPROPRIATE AUTHORIZATION. <Electronically signed in Other Vendor System> SIGNED BY: GIACOMO ARMENTA MD 09/1018 Assessment/Plan Assessment/Plan This patient presents with exacerbation of COPD and hypercapnic respiratory failure. She is not having any cardiac complaints. Her EKG is unremarkable. Her enzymes are negative 3. She has had a occasional PVC but no other significant arrhythmias. Her pro-BNP is elevated but her chest x-ray does not document significant congestive heart failure changes. I think she just has prominent pulmonary arteries due to pulmonary hypertension. I recommend a follow-up echocardiogram mainly to look at pulmonary artery pressures and right heart function. I don't think she needs continuous ECG monitoring but she may benefit from continuous pulse oximetry monitoring as she tends to desaturate on nasal oxygen. I don't think she needs chronic diuretic therapy. Unfortunately she continues to smoke and is aware that this is detrimental to her health, but she does have some plans for smoking cessation program on discharge. Consult Acknowledgment - Thank you for your consult request.
[2016-09-10 16:00] VITALS: BP 140/60
--- NOTE | 2016-09-10 17:39 | NUR ---
THE PT HAD NOT VOIDED ON THE SHIFT, BUT JUST VOIDED 750ML IN THE COMMODE.
[2016-09-11] VITALS: BP 134/52
[2016-09-11 05:55] LABS: HEMATOCRIT 26.8 % (37-47); MEAN CORPUSCULAR HGB 28.1 PG (27.0-31.0); MEAN CORPUSCULAR HGB CONC 32.2 G/DL (33.0-37.0); MEAN CORPUSCULAR VOLUME 87.5 FL (81.0-99.0); MEAN PLATELET VOLUME 8.8 FL (7.4-10.4); PLATELET COUNT 349 /CUMM (130-400); RBC DISTRIBUTION WIDTH 18.3 % (11.5-14.5); RED BLOOD CELL CT 3.06 /CUMM (4.20-5.40); WHITE BLOOD CELL COUNT 6.2 /CUMM (4.8-10.8)
--- NOTE | 2016-09-11 07:49 | PN- Housestaff ---
Subjective Follow-up For: 1 Acute on chronic hypercarbic respiratory failure Complaints: pain scale (0-10) Tele-Events Since Last Visit: heart rate between 80-90, without any acute event overnight. Subjective: I signed examined the patient today morning. She feels better without any significant events overnight. She denies any cough, shortness of breath, fever, chills overnight. Review of Systems Constitutional: Reports: no symptoms, see HPI. EENTM: Reports: no symptoms, see HPI. Cardiovascular: Reports: no symptoms, see HPI. Respiratory: Reports: no symptoms, see HPI. Gastrointestinal: Reports: diarrhea. Genitourinary: Reports: no symptoms, see HPI. Musculoskeletal: Reports: back pain. Skin: Reports: no symptoms, see HPI. Comments: ROS negative except as above. Objective Last 24 Hrs of Vital Signs/I&O Vital Signs Date Time Temp Pulse Resp B/P Pulse O2 O2 Flow FiO2 Ox Delivery Rate 09/11 1600 98.4 88 22 122/60 96 Nasal 4.0L Cannula 09/11 1600 96 Nasal 4.0L Cannula 09/11 1047 94 Nasal 4.0L Cannula 09/11 0800 99 Nasal 4.0L Cannula 09/11 0800 98.0 84 22 140/60 99 Nasal 4.0L Cannula 09/11 0107 93 Nasal 4.0L Cannula 09/11 0054 96 93 / 0000 92 Nasal 4.0L Cannula / 0000 98.3 97 28 134/52 92 Nasal 4.0L Cannula Intake & Output 09/11 1600 /05 0800 01/05 0000 Intake Total 1225 382 200 Output Total 600 400 750 Balance 625 -18 -550 Intake, IV 265 22 Intake, Oral 960 360 200 Number 1 0 0 Bowel Movements Output, Urine 600 400 750 Patient 59.874 kg Weight Physical Exam General Appearance: Alert, Oriented X3, Cooperative, No Acute Distress Skin: No Rashes HEENT: Atraumatic, PERRLA Neck: Supple, No JVD Cardiovascular: Regular Rate, Normal S1, Normal S2, No Murmurs Lungs: normal breath sounds, still scatered rhonchi present Abdomen: Normal Bowel Sounds, Soft, No Tenderness Neurological: Normal Gait, Normal Speech, Strength at 5/5 X4 Ext Extremities: No Clubbing, No Cyanosis, 2+ pedal edema present Current Medications: Current Medications Sig/Cathy Start time Last Medication Dose Route Stop Time Status Admin Albuterol Sulfate 3 ML TID 09/09 2200 AC 09/11 INH 1954 Alprazolam 0.25 MG TID PRN 09/09 2145 AC 09/11 PO 09/16 214 1342 Aspirin Buffered 81 MG DAILY 09/10 1000 AC 09/11 PO 1022 Azithromycin 500 MG DAILY 09/10 1000 AC 09/11 Sodium Chloride 250 ML IV 1027 Budesonide/ 2 PUF BID 09/09 2200 AC 09/11 Formoterol Fumarate INH 1027 Ceftriaxone Sodium 1,000 MG AT BEDTIME 09/09 2200 AC 09/10 IV 2117 Enoxaparin Sodium 40 MG DAILY 09/10 1000 AC SC Furosemide 20 MG ONCE ONE 09/11 2030 DC 09/11 IV 09/11 Insulin Aspart 0 TIDAC/HS 09/10 1200 AC 09/11 SC 1635 Insulin Detemir 10 UNITS BID 09/09 2200 AC 09/11 SC 1022 Methadone HCl 100 MG 0500 09/10 0500 AC 09/11 PO 0500 Methimazole 15 MG DAILY 09/10 1000 AC 09/11 PO 1022 Methylprednisolone 40 MG Q12 09/11 1000 DC IV Methylprednisolone 40 MG 0500,1700 09/11 0500 AC 09/11 IV 1636 Methylprednisolone 40 MG Q8 09/10 2200 DC 09/11 IV 0502 Nicotine 14 MG DAILY 09/10 1000 AC 09/11 TOP 1023 Pregabalin 75 MG BID 09/09 2200 AC 09/11 PO 1022 Trazodone HCl 50 MG QPM PRN 09/09 2014 AC PO Last 24 Hrs of Lab/Arie Results Last 24 Hrs of Labs/Mics: Laboratory Tests 09/11/16 0509: Anion Gap 9, Estimated GFR > 60, Glucose 137 H, Calcium 8.5, Phosphorus 3.4, Magnesium 2.0, Total Bilirubin 0.2, AST 25, ALT 38, Albumin 3.2 L, CBC w Diff MAN DIFF ORDERED, RBC 3.06 L, MCV 87.5, MCH 28.1, RDW 18.3 H, MPV 8.8, Segmented Neutrophils 90 H, Lymphocytes 8 L, Monocytes 2, Platelet Estimate ADEQUATE, Hypochromic-Microcytic 1+, Poikilocytosis 1+, Ovalocytes 1+, PUBS MCHC 32.2 L, Fld Total RBCs Counted 100 Microbiology 09/11 2017 STOOL: Clostridium difficile Toxin A & B - ORD 09/11 0104 URINE ROUT: Urine Culture - RECD Assessment/Plan Assessment: Acute on Chronic hypercarbic respiratory acidosis * she was on 4 L oxygen overnight - saturating well * Started solumedrol every 12hrs today * TRC/nebs Diabetes mellitus with peripheral neuropathy * She was found to have metabolic acidosis in ER despite respiratory acidosis. * Her sugars are maintained between 140-170 during night * However she was placed on steroids, so placed on a new sliding scale to be cautious Graves disease * TSH is low with normal free T4 * continue methimazole 15mg for now Chronic pain syndrome * On methadone program Code Status * Full Code Problem List: 1. COPD 2. Graves' disease 3. Methadone dependence 4. Diabetic gastroparesis 5. Ketoacidosis due to diabetes 6. Methadone use 7. Acute respiratory failure with hypoxia and hypercarbia Pain Ratin Pain Location: Back pain Pain Goal: Pain 4 or less Pain Plan: On methadone Tomorrow's Labs & Rationales: ICU bundle cbc Consulting Request: Consulting Specialty: Pulmonary Disease
[2016-09-11 08:00] VITALS: BP 140/60
--- NOTE | 2016-09-11 08:16 | PN- Diabetes ---
Assessment/Plan Assessment: 55 y/o female, Hx of smoking, COPD, brittle diabetes type 1 and Graves' disease, was admitted for respiratory distress due to COPD exacerbation along with significantly elevated BNP of 7870. She was on BIPAP and was put on Solumedrol 40 mg every 6 hours. Solumedrol is decreased to 40 mg every 8 hours today. In hospital, she was put on Levemir 10 units twice a day, Novolog coverage before meals. Her FSGs were 96, 138, 196, 280 and 137. With regards to Graves' disease, she is on Methimazole 15 mg daily. Repeat TSH < 0.015 and free T4 1.59. Plan: continue the current insulin regimen for now; monitor FSGs; continue the current thyroid medication; will follow. Subjective Subjective: Her breathing is improving and she feels better. Objective Last 24 Hrs of Vital Signs/I&O Vital Signs Date Time Temp Pulse Resp B/P Pulse O2 O2 Flow FiO2 Ox Delivery Rate 09/11 0107 93 Nasal 4.0L Cannula 09/11 0054 96 93 09/11 0000 92 Nasal 4.0L Cannula 09/11 0000 98.3 97 28 134/52 92 Nasal 4.0L Cannula 09/10 2001 90 Nasal 4.0L Cannula 09/10 1600 93 Nasal 4.0L Cannula 09/10 1600 98.4 86 20 140/60 93 Nasal 4.0L Cannula Intake & Output 09/11 1600 09/11 0800 09/11 0000 Intake Total 382 200 Output Total 400 750 Balance -18 -550 Intake, IV 22 Intake, Oral 360 200 Number 0 0 Bowel Movements Output, Urine 400 750 Findings Pertinent Lab/Arie Results: Laboratory Tests 09/11 0509 Chemistry Sodium (137 - 145 mmol/L) 137 Potassium (3.5 - 5.1 mmol/L) 5.2 H Chloride (98 - 107 mmol/L) 92 L Carbon Dioxide (22 - 30 mmol/L) 36 H Anion Gap (5 - 16) 9 BUN (7 - 17 mg/dL) 26 H Creatinine (0.5 - 1.0 mg/dL) 0.8 Estimated GFR (>60 ml/min) > 60 Glucose (65 - 99 mg/dL) 137 H Calcium (8.4 - 10.2 mg/dL) 8.5 Phosphorus (2.5 - 4.5 mg/dL) 3.4 Magnesium (1.6 - 2.3 mg/dL) 2.0 Total Bilirubin (0.2 - 1.3 mg/dL) 0.2 AST (14 - 36 U/L) 25 ALT (9 - 52 U/L) 38 Albumin (3.5 - 5.0 g/dL) 3.2 L Hematology CBC w Diff MAN DIFF ORDERED WBC (4.8 - 10.8 /CUMM) 6.2 RBC (4.20 - 5.40 /CUMM) 3.06 L Hgb (12.0 - 16.0 G/DL) 8.6 L Hct (37 - 47 %) 26.8 L MCV (81.0 - 99.0 FL) 87.5 MCH (27.0 - 31.0 PG) 28.1 RDW (11.5 - 14.5 %) 18.3 H Plt Count (130 - 400 /CUMM) 349 MPV (7.4 - 10.4 FL) 8.8 Segmented Neutrophils (42.2 - 75.2 %) 90 H Lymphocytes (20.5 - 51.1 %) 8 L Monocytes (1.7 - 9.3 %) 2 Platelet Estimate (ADEQUATE) ADEQUATE Hypochromic-Microcytic 1+ Poikilocytosis 1+ Ovalocytes 1+ PUBS MCHC (33.0 - 37.0 G/DL) 32.2 L Other Body Source Fld Total RBCs Counted (%) 100
--- NOTE | 2016-09-11 10:04 | PN- CRCU ---
See Addendum Subjective HPI/Critical Care Issues: Patient seen and examined. She appears to be improving dramatically. She remains on steroids her white count is 6.2 creatinine 0.8. No nausea no vomiting no diarrhea no constipation no chest pain or palpitations. She is sitting upright and no longer tripoding and shortness of breath has improved. Objective Current Medications: Current Medications Sig/Cathy Start time Last Medication Dose Route Stop Time Status Admin Albuterol Sulfate 3 ML TID 09/09 2200 AC 09/11 INH 0936 Alprazolam 0.25 MG TID PRN 09/09 2145 AC 09/11 PO 09/16 2144 0502 Aspirin Buffered 81 MG DAILY 09/10 1000 AC 09/10 PO 1043 Azithromycin 500 MG DAILY 09/10 1000 AC 09/10 Sodium Chloride 250 ML IV 1043 Budesonide/ 2 PUF BID 09/09 2200 AC 09/10 Formoterol Fumarate INH 2118 Ceftriaxone Sodium 1,000 MG AT BEDTIME 09/09 2200 AC 09/10 IV 2117 Enoxaparin Sodium 40 MG DAILY 09/10 1000 AC SC Insulin Aspart 0 TIDAC/HS 09/10 1200 AC 09/11 SC 0847 Insulin Detemir 10 UNITS BID 09/09 2200 AC 09/10 SC 2120 Methadone HCl 100 MG 0500 09/10 0500 AC 09/11 PO 0500 Methimazole 15 MG DAILY 09/10 1000 AC 09/10 PO 1043 Methylprednisolone 40 MG Q12 09/11 1000 AC IV Methylprednisolone 40 MG Q8 09/10 2200 DC 09/11 IV 0502 Methylprednisolone 40 MG Q6 09/10 0600 DC 09/10 IV 1203 Nicotine 14 MG DAILY 09/10 1000 AC 09/10 TOP 1043 Pregabalin 75 MG BID 09/09 2200 AC 09/10 PO 2120 Trazodone HCl 50 MG QPM PRN 09/09 2015 AC PO Vital Signs & I&O Last 24 Hrs of Vitals and I&O: Vital Signs Date Time Temp Pulse Resp B/P Pulse O2 O2 Flow FiO2 Ox Delivery Rate 09/11 799 99 Nasal 4.0L Cannula 09/11 08 98.0 84 22 140/60 99 Nasal 4.0L Cannula 09/11 0107 93 Nasal 4.0L Cannula 09/11 0054 96 93 09/11 0000 92 Nasal 4.0L Cannula 09/11 0000 98.3 97 28 134/52 92 Nasal 4.0L Cannula 09/10 2001 90 Nasal 4.0L Cannula 09/10 1599 93 Nasal 4.0L Cannula 09/10 1600 98.4 86 20 140/60 93 Nasal 4.0L Cannula Intake & Output 09/11 0800 09/11 0000 Intake Total 382 200 Output Total 400 750 Balance -18 -550 Intake, IV 22 Intake, Oral 360 200 Number 0 0 Bowel Movements Output, Urine 400 750 Exam Other Physical Findings: General - Alert, awake and oriented HEENT - normocephalic, atraumatic Cardiovascular - S1, S2 Lungs - bilateral wheezing inspiratory and expiratory Abdomen - soft, bowel sounds positive, no tenderness Extremities - trace edema Results Last 24 Hrs of Lab Results: Laboratory Tests 09/11/16 0509: Anion Gap 9, Estimated GFR > 60, Glucose 137 H, Calcium 8.5, Phosphorus 3.4, Magnesium 2.0, Total Bilirubin 0.2, AST 25, ALT 38, Albumin 3.2 L, CBC w Diff MAN DIFF ORDERED, RBC 3.06 L, MCV 87.5, MCH 28.1, RDW 18.3 H, MPV 8.8, Segmented Neutrophils 90 H, Lymphocytes 8 L, Monocytes 2, Platelet Estimate ADEQUATE, Hypochromic-Microcytic 1+, Poikilocytosis 1+, Ovalocytes 1+, PUBS MCHC 32.2 L, Fld Total RBCs Counted 100 Impression/Plan Impression/Plan Impression/Plan: Impression 55-year-old woman with acute hypercarbic and hypoxemic respiratory failure likely secondary to COPD exacerbation, opiate dependence on methadone program and possible community acquired pneumonia area and history of diabetes and atrial fibrillation that has been intermittent. Plan - Reduce steroids to 40 mg IV every 12 - Monitor fingersticks - Continues to follow cardiology and endocrinology recommendations - Continue empiric antibiotics at this time - Continue methadone - TRC nebs - DVT prophylaxis at all times DG tele
--- NOTE | 2016-09-11 10:13 | ECHOCARDIOGRAM REPORT ---
ABEBE TURCIOS Age: 55 : 1960 Gender: F Exam Date: 09/10/2016 18:56 Exam Location: [facility] Ht (in): 65 Wt (lb): 133 BSA: 1.67 BP: 140 / 60 Ordering Physician: ERNESTINE SOUTH MD Referring Physician: Slava Mayer MD Chief, SoC Technologist: Deepthi Sarmiento [facility] Room Number: 104 Indications: PULMONARY HYPERTENSION Rhythm: Sinus Technical Quality: Good FINDINGS Left Ventricle Normal size left ventricle. Mild concentric left ventricular hypertrophy. Normal left ventricular ejection fraction visually estimated at >65 %. No obvious regional wall motion abnormalities. Normal left ventricular diastolic filling pattern for age. Right Ventricle The right ventricle is normal in size and function. Right Atrium The right atrium is normal in size. Left Atrium The left atrium is normal in size. The interatrial septum is intact. Mitral Valve Mild thickening/calcification of the mitral valve leaflets. Mild- to-moderate mitral regurgitation. Aortic Valve Structurally normal trileaflet aortic valve. No aortic stenosis. No aortic regurgitation. Tricuspid Valve Tricuspid valve is normal in structure and function. Moderate tricuspid regurgitation. Right ventricular systolic pressure estimated to be elevated at 55-60 mmHg. Moderate to severe pulmonary hypertension. Pulmonic Valve Structurally normal pulmonic valve. There is trace pulmonic regurgitation. Pericardium Normal pericardium without effusion. No pleural effusion. Great Vessels Normal size aortic root. Dilated IVC CONCLUSIONS Mild concentric left ventricular hypertrophy. Normal left ventricular ejection fraction visually estimated at >65 The left atrium is normal in size. Mild thickening/calcification of the mitral valve leaflets. Fczn-vl-mlluwoxs mitral regurgitation. Structurally normal trileaflet aortic valve. No aortic stenosis. Moderate tricuspid regurgitation. Right ventricular systolic pressure estimated to be elevated at 55- 60 mmHg. Moderate to severe pulmonary hypertension. Dilated IVC. Slava Mayer M.D. (Electronically Signed) Final Date: 11 September 2016 10:12 MEASUREMENTS (Male / Female) Normal Values 2D ECHO LV Diastolic Diameter PLAX 4.0 cm 4.2 - 5.9 / 3.9 - 5.3 cm LV Systolic Diameter PLAX 2.2 cm 2.1 - 4.0 cm LV Fractional Shortening PLAX 45.0 % 25 - 46 % LV Ejection Fraction 2D Teich 76.9 % IVS Diastolic Thickness 1.2 cm LVPW Diastolic Thickness 1.2 cm LV Relative Wall Thickness 0.6 RV Internal Dim ED PLAX 2.9 cm 1.9 - 3.8 cm LVOT Diameter 1.8 cm Aortic Root Diameter 2.7 cm LA Systolic Diameter LX 3.2 cm 3.0 - 4.0 / 2.7 - 3.8 cm LA Volume 32.0 cm 18 - 58 / 22 - 52 cm Ascending Aorta Diameter 3.3 cm DOPPLER AV Peak Velocity 179.0 cm/s AV Peak Gradient 12.8 mmHg AV Mean Velocity 112.0 cm/s AV Mean Gradient 6.0 mmHg AV Velocity Time Integral 30.2 cm LVOT Peak Velocity 123.0 cm/s LVOT Peak Gradient 6.1 mmHg LVOT Mean Velocity 87.0 cm/s LVOT Mean Gradient 3.0 mmHg LVOT Velocity Time Integral 23.7 cm LVOT Stroke Volume 60.3 cm AV Area Cont Eq vti 2.0 cm AV Area Cont Eq pk 1.7 cm MV Peak Velocity 239.0 cm/s MV Peak Gradient 22.8 mmHg MV Mean Velocity 123.0 cm/s MV Mean Gradient 8.0 mmHg Mitral E Point Velocity 162.0 cm/s Mitral A Point Velocity 89.1 cm/s Mitral E to A Ratio 1.8 MV PHT Velocity 244.0 cm/s MV Deceleration [place] 1111.0 cm/s MV Pressure Half Time 65.9 ms MV Area PHT 3.3 cm MV Deceleration Time 161.0 ms TR Peak Velocity 344.0 cm/s TR Peak Gradient 47.3 mmHg Right Atrial Pressure 5.0 mmHg Pulmonary Artery Systolic Pressu 52.3 mmHg Right Ventricular Systolic Press 52.3 mmHg PV Peak Velocity 139.0 cm/s PV Peak Gradient 7.7 mmHg PV Mean Velocity 91.9 cm/s PV Mean Gradient 4.0 mmHg PV Velocity Time Integral 29.1 cm LV E' Lateral Velocity 13.3 cm/s Mitral E to LV E' Lateral Ratio 12.2 LV E' Septal Velocity 6.9 cm/s Mitral E to LV E' Septal Ratio 23.4
--- NOTE | 2016-09-11 13:05 | PN- Cardiology ---
Subjective Subjective: The patient appears somewhat improved. Her saturations are improving slowly. Her echocardiogram showed moderate to severe pulmonary hypertension but good left ventricular function. There have been no arrhythmias. Objective Vital Signs and I&Os Vital Signs Date Time Temp Pulse Resp B/P Pulse O2 O2 Flow FiO2 Ox Delivery Rate 09/11 1047 94 Nasal 4.0L Cannula 09/11 08 99 Nasal 4.0L Cannula 09/11 0800 98.0 84 22 140/60 99 Nasal 4.0L Cannula 09/11 0107 93 Nasal 4.0L Cannula 09/11 0054 96 93 09/11 0000 92 Nasal 4.0L Cannula 09/11 0000 98.3 97 28 134/52 92 Nasal 4.0L Cannula 09/10 2001 90 Nasal 4.0L Cannula 09/10 1600 93 Nasal 4.0L Cannula 09/10 1600 98.4 86 20 140/60 93 Nasal 4.0L Cannula Intake & Output 09/11 1600 09/11 0800 09/11 0000 09/10 1600 09/10 0800 09/10 0000 Intake Total 382 200 499 860 5800 Output Total 600 400 750 900 900 Balance -600 -18 -550 750 -780 2060 Intake, IV 22 250 0 2850 Intake, Oral 360 200 500 120 110 Number 0 0 0 0 1 Bowel Movements Output, Urine 600 400 750 900 900 Patient 132 lb 133 lb Weight Physical Exam: She is in no distress Chest reveals decreased breath sounds Heart reveals regular rhythm There is no edema Current Medications: Current Medications Sig/Cathy Start time Last Medication Dose Route Stop Time Status Admin Albuterol Sulfate 3 ML TID 09/09 2199 AC 09/11 INH 0936 Alprazolam 0.25 MG TID PRN 09/09 2145 AC 09/11 PO 09/16 2144 0502 Aspirin Buffered 81 MG DAILY 09/10 1000 AC 09/11 PO 1022 Azithromycin 500 MG DAILY 09/10 1000 AC 09/11 Sodium Chloride 250 ML IV 1027 Budesonide/ 2 PUF BID 09/09 2199 AC 09/11 Formoterol Fumarate INH 1027 Ceftriaxone Sodium 1,000 MG AT BEDTIME 09/09 2199 AC 09/10 IV 2117 Enoxaparin Sodium 40 MG DAILY 09/10 1000 AC SC Insulin Aspart 0 TIDAC/HS 09/10 1200 AC 09/11 SC 1236 Insulin Detemir 10 UNITS BID 09/09 2199 AC 09/11 SC 1022 Methadone HCl 100 MG 0500 09/10 0500 AC 09/11 PO 0500 Methimazole 15 MG DAILY 09/10 1000 AC 09/11 PO 1022 Methylprednisolone 40 MG Q12 09/11 1000 DC IV Methylprednisolone 40 MG 0500,1700 09/11 0500 AC IV Methylprednisolone 40 MG Q8 09/10 2200 DC 09/11 IV 0502 Methylprednisolone 40 MG Q6 09/10 0600 DC 09/10 IV 1203 Nicotine 14 MG DAILY 09/10 1000 AC 09/11 TOP 1023 Pregabalin 75 MG BID 09/09 2199 AC 09/11 PO 1022 Trazodone HCl 50 MG QPM PRN 09/09 2014 AC PO Results Last 48 Hrs of Labs/Mics: Laboratory Tests 09/11/16 0509: Anion Gap 9, Estimated GFR > 60, Glucose 137 H, Calcium 8.5, Phosphorus 3.4, Magnesium 2.0, Total Bilirubin 0.2, AST 25, ALT 38, Albumin 3.2 L, CBC w Diff MAN DIFF ORDERED, RBC 3.06 L, MCV 87.5, MCH 28.1, RDW 18.3 H, MPV 8.8, Segmented Neutrophils 90 H, Lymphocytes 8 L, Monocytes 2, Platelet Estimate ADEQUATE, Hypochromic-Microcytic 1+, Poikilocytosis 1+, Ovalocytes 1+, PUBS MCHC 32.2 L, Fld Total RBCs Counted 100 09/10/16 0515: pH 7.36, pCO2 59 H, pO2 87, HCO3 33 H, ABG O2 Sat (Measured) 96.0, P-50 (Temp Corrected) N, Carboxyhemoglobin 0.8 L, O2 Concentration % .40, Respiration Rate 22, O2 Delivery Method BIPAP, Vent Mode ST, Expiratory Pressure 6, Inspiratory Pressure 20, Phlebotomy Draw Site RIGHT RADIAL 09/10/16 0452: Anion Gap 10, Estimated GFR > 60, Glucose 134 H, Calcium 8.3 L, Phosphorus 3.9 , Magnesium 1.8, Total Bilirubin 0.2, Direct Bilirubin 0.2, AST 47 H, ALT 46, Alkaline Phosphatase 388 H, Troponin I < 0.01, Total Protein 6.0 L, Albumin 3.0 L, CBC w Diff MAN DIFF ORDERED, RBC 3.18 L, MCV 86.7, MCH 27.5, RDW 17.6 H, MPV 9.3, Segmented Neutrophils 92 H, Lymphocytes 5 L, Monocytes 3, Nucleated RBCs 1 H, Platelet Estimate ADEQUATE, Polychromasia 1+, Hypochromic- Microcytic 1+, Poikilocytosis 1+, Ovalocytes 1+, PUBS MCHC 31.7 L, Fld Total RBCs Counted 100 09/09/16 2250: pH 7.27 *L, pCO2 65 *H, pO2 99, HCO3 29 H, ABG O2 Sat (Measured) 96.0, Carboxyhemoglobin 1.2 L, O2 Concentration % .4, Respiration Rate 22, O2 Delivery Method BIPAP, Vent Mode ST, Expiratory Pressure 6, Inspiratory Pressure 20, Phlebotomy Draw Site RIGHT BRACHIAL 09/09/16 2249: Troponin I 0.01, Urine Opiates Screen < 100.00, Methadone Screen > 735 H, Barbiturate Screen < 60, Ur Phencyclidine Scrn 6.20, Amphetamines Screen < 100, U Benzodiazepines Scrn > 800 H, Urine Cocaine Screen < 50, Urine Cannabis Screen < 5.00, Urine Color YEL, Urine Clarity HAZY H, Urine pH 6.0, Ur Specific [place] 1.025, Urine Protein 30 H, Urine Ketones NEG, Urine Nitrite POS H, Urine Bilirubin NEG, Urine Urobilinogen 0.2, Ur Leukocyte Esterase SMALL H, Ur Microscopic SEDIMENT EXAMINED, Urine RBC 5-10 H, Urine WBC 15-25 H, Ur Epithelial Cells RARE, Hyaline Casts 5-10 H, Urine Hemoglobin MOD H, Urine Glucose NEG 09/09/16 2100: pH 7.25 *L, pCO2 71 *H, pO2 114 H, HCO3 31 H, ABG O2 Sat (Measured) 98.0, Carboxyhemoglobin 1.0 L, O2 Concentration % .5, Respiration Rate 22, O2 Delivery Method BIPAP, Vent Mode ST, Expiratory Pressure 4, Inspiratory Pressure 20, Phlebotomy Draw Site RIGHT RADIAL 09/09/16 1745: Anion Gap 10, Estimated GFR 58 L, BUN/Creatinine Ratio 31.0 H, Glucose 127 H, Calcium 8.4, Magnesium 1.5 L, Total Bilirubin 0.4, AST 60 H, ALT 49, Alkaline Phosphatase 407 H, Troponin I < 0.01, Zip-[id number]-Tbryfwuifpn Pept 7870 H, Total Protein 6.3, Albumin 3.3 L, Globulin 3.0, Albumin/Globulin Ratio 1.1, TSH < 0.015 L, Free T4 1.59, CBC w Diff NO MAN DIFF REQ, RBC 3.16 L, MCV 87.9, MCH 28.3, RDW 17.6 H, MPV 9.4, Gran % 77.6 H, Lymphocytes % 16.8 L, Monocytes % 5.6, Eosinophils % 0, Basophils % 0 L, Absolute Granulocytes 5.8, Absolute Lymphocytes 1.3, Absolute Monocytes 0.4, Absolute Eosinophils 0, Absolute Basophils 0, PUBS MCHC 32.1 L, Serum Alcohol < 10.0, Acetone Level POSITIVE AT 1:4 DIL 09/09/16 1740: pH 7.28 *L, pCO2 71 *H, pO2 56 L, HCO3 32 H, ABG O2 Sat (Measured) 86.0 L, Carboxyhemoglobin 1.9, O2 Concentration % 5L, O2 Delivery Method NC, Phlebotomy Draw Site LEFT RADIAL Microbiology 09/09 2249 UPPER RESP: Surveillance Culture - COMP 09/09 2244 GI: Surveillance Culture - COMP Recent Imaging Studies: CONCLUSIONS Mild concentric left ventricular hypertrophy. Normal left ventricular ejection fraction visually estimated at >65 The left atrium is normal in size. Mild thickening/calcification of the mitral valve leaflets. [id number]-iichvzit mitral regurgitation. Structurally normal trileaflet aortic valve. No aortic stenosis. Moderate tricuspid regurgitation. Right ventricular systolic pressure estimated to be elevated at 55- 60 mmHg. Moderate to severe pulmonary hypertension. Dilated IVC. Slava Mayer M.D. (Electronically Signed) Final Date: 11 September 2016 10:12 Assessment/Plan Assessment/Plan The patient is improved from a cardiac standpoint. She does not need telemetry monitoring for arrhythmias but may need continuous pulse oximetry. This decision will be up to pulmonology. Please call if any further cardiac input is needed. Continue telemetry? No
[2016-09-11 16:00] VITALS: BP 122/60
[2016-09-11 22:00] VITALS: BP 130/60
--- NOTE | 2016-09-12 01:06 | NUR ---
PER PT REQUEST BS LEVEL TAKEN AND FOUND TO BE 358. MULTIPLE EMPTY CONATINERS OF [place] ICE WERE FOUND ON BEDSIDE TABLE. PT WAS EDUCATED ON THE EFFECT OF PREDNISONE ON BS LEVELS. PT IS REQUESTING 1 UNIT OF INSULIN AT THIS TIME. MD CLEMENTS MADE AWARE AND PT WAS MEDICATED WITH 1 UNIT OF INSULIN PER EMAR. WILL CONTINUE TO MONITOR.
[2016-09-12 05:51] LABS: HEMATOCRIT 27.6 % (37-47); MEAN CORPUSCULAR HGB 27.8 PG (27.0-31.0); MEAN CORPUSCULAR HGB CONC 32.1 G/DL (33.0-37.0); MEAN CORPUSCULAR VOLUME 86.6 FL (81.0-99.0); MEAN PLATELET VOLUME 8.7 FL (7.4-10.4); PLATELET COUNT 365 /CUMM (130-400); RBC DISTRIBUTION WIDTH 17.8 % (11.5-14.5); RED BLOOD CELL CT 3.18 /CUMM (4.20-5.40); WHITE BLOOD CELL COUNT 7.8 /CUMM (4.8-10.8)
[2016-09-12 08:00] VITALS: BP 130/70
--- NOTE | 2016-09-12 08:26 | PN- Diabetes ---
Assessment/Plan Assessment: 55 y/o female, Hx of smoking, COPD, brittle diabetes type 1 and Graves' disease, was admitted for respiratory distress due to COPD exacerbation along with significantly elevated BNP of 7870. She was on BIPAP and was put on Solumedrol 40 mg every 6 hours. Solumedrol is decreased to 40 mg twice a day. In hospital, she was put on Levemir 10 units twice a day, Novolog coverage before meals. Her FSGs were 111, 81, 281, 210, 50,77, 148, 358 and 239. With regards to Graves' disease, she is on Methimazole 15 mg daily. Repeat TSH < 0.015 and free T4 1.59. Plan: 1. continue Levemir 10 units twice a day; 2. decrease Novolog coverage before meals FSG 100-180, 1 unit 181-250, 2 units 251-320, 3 units 321-360, 4 units 361-400, 5 units > 400, 6 units 3. adjust Novolog coverage at bedtime; FSG < 320, no coverage 321-360, 2 units 361-400, 3 units > 400,4 units 4. monitor FSGs 5. continue methimazole 15 mg daily for now will follow. Subjective Subjective: She had hypoglycemia after dinner last night. Objective Last 24 Hrs of Vital Signs/I&O Vital Signs Date Time Temp Pulse Resp B/P Pulse O2 O2 Flow FiO2 Ox Delivery Rate 09/12 0542 95 Nasal 4.0L Cannula 09/12 0202 66 98 09/12 0000 95 Nasal 4.0L Cannula 09/11 2200 97.2 88 23 130/60 97 Nasal 4.0L Cannula 09/11 1600 98.4 88 22 122/60 96 Nasal 4.0L Cannula 09/11 1600 96 Nasal 4.0L Cannula 09/11 1047 94 Nasal 4.0L Cannula Intake & Output 09/12 1600 09/12 0800 09/12 0000 Intake Total 200 300 Output Total 750 980 Balance -550 -680 Intake, Oral 200 300 Output, Urine 750 980 Findings Pertinent Lab/Arie Results: Laboratory Tests 09/12 0500 Chemistry Sodium (137 - 145 mmol/L) 134 L Potassium (3.5 - 5.1 mmol/L) 5.1 Chloride (98 - 107 mmol/L) 86 L Carbon Dioxide (22 - 30 mmol/L) 37 H Anion Gap (5 - 16) 10 BUN (7 - 17 mg/dL) 26 H Creatinine (0.5 - 1.0 mg/dL) 0.9 Estimated GFR (>60 ml/min) > 60 BUN/Creatinine Ratio (7 - 25 %) 28.9 H Hematology CBC w Diff MAN DIFF ORDERED WBC (4.8 - 10.8 /CUMM) 7.8 RBC (4.20 - 5.40 /CUMM) 3.18 L Hgb (12.0 - 16.0 G/DL) 8.8 L Hct (37 - 47 %) 27.6 L MCV (81.0 - 99.0 FL) 86.6 MCH (27.0 - 31.0 PG) 27.8 RDW (11.5 - 14.5 %) 17.8 H Plt Count (130 - 400 /CUMM) 365 MPV (7.4 - 10.4 FL) 8.7 Segmented Neutrophils (42.2 - 75.2 %) 73 Band Neutrophils (0.0 - 5.0 %) 1 Lymphocytes (20.5 - 51.1 %) 19 L Monocytes (1.7 - 9.3 %) 7 Platelet Estimate (ADEQUATE) ADEQUATE Polychromasia 1+ Hypochromic-Microcytic 1+ Poikilocytosis 1+ Ovalocytes 1+ Stomatocytes FEW PUBS MCHC (33.0 - 37.0 G/DL) 32.1 L Other Body Source Fld Total RBCs Counted (%) 100
--- NOTE | 2016-09-12 08:27 | PN- Housestaff ---
Subjective Follow-up For: 1 Acute on chronic hypercarbic respiratory failure Complaints: no complaints Tele-Events Since Last Visit: Not on tele monitor. Subjective: I saw and examined the patient today. She is doing much better today. yesterday she complained about having a diarrhea and requested for stat C.diff test order. She is able to breath well, saturating well. No significant cough/sputum production/fever/chills. Review of Systems Constitutional: Reports: see HPI. Comments: ROS negative except the above. Objective Last 24 Hrs of Vital Signs/I&O Vital Signs Date Time Temp Pulse Resp B/P Pulse O2 O2 Flow FiO2 Ox Delivery Rate 09/12 1600 97.1 86 20 158/76 98 Nasal Cannula 09/12 0844 98 Nasal 4.0L Cannula 09/12 799 98 Nasal 3.0L Cannula 09/12 799 98.0 80 22 130/70 98 Nasal 3.0L Cannula 09/12 0542 95 Nasal 4.0L Cannula 09/12 0202 66 98 09/12 0000 95 Nasal 4.0L Cannula 09/11 220 97.2 88 23 130/60 97 Nasal 4.0L Cannula Intake & Output 09/12 1600 09/12 0800 09/12 0000 Intake Total 850 200 300 Output Total 800 750 980 Balance 50 -550 -680 Intake, IV 250 Intake, Oral 600 200 300 Number 1 Bowel Movements Output, Urine 800 750 980 Physical Exam General Appearance: Alert, Oriented X3, Cooperative, No Acute Distress Skin: No Rashes, No Breakdown HEENT: Atraumatic, PERRLA Neck: Supple, No JVD Cardiovascular: Regular Rate, Normal S1, Normal S2, No Murmurs Lungs: Normal Air Movement, scattered wheezing evident Abdomen: Normal Bowel Sounds, Soft, No Tenderness Neurological: Normal Gait, Normal Speech, Strength at 5/5 X4 Ext, Normal Tone Current Medications: Current Medications Sig/Cathy Start time Last Medication Dose Route Stop Time Status Admin Albuterol Sulfate 3 ML TID 09/09 2199 AC 09/12 INH 1331 Alprazolam 0.25 MG TID PRN 09/09 2144 AC 09/12 PO 09/16 214 1322 Aspirin Buffered 81 MG DAILY 09/10 1000 AC 09/12 PO 0958 Azithromycin 500 MG DAILY 09/10 1000 AC 09/12 Sodium Chloride 250 ML IV 1002 Budesonide/ 2 PUF BID 09/09 2199 AC 09/12 Formoterol Fumarate INH 1002 Ceftriaxone Sodium 1,000 MG AT BEDTIME 09/09 2200 AC 09/11 IV 2121 Enoxaparin Sodium 40 MG DAILY 09/10 1000 AC SC Furosemide 20 MG ONCE ONE 09/11 2030 DC 09/11 IV 09/11 Glycerin/Mineral Oil 1 KRISS TID PRN 09/12 1000 AC TOP Insulin Aspart 2 UNITS .STK-MED ONE 09/12 0845 DC PA 09/12 0846 Insulin Aspart 1 UNITS ONCE ONE 09/12 0015 DC 09/12 PA 09/12 0016 0013 Insulin Aspart 0 TIDAC/HS 09/10 1200 AC 09/12 SC 1709 Insulin Detemir 10 UNITS BID 09/09 2200 AC 09/12 SC 0959 Methadone HCl 100 MG 0500 09/10 0500 AC 09/12 PO 0441 Methimazole 15 MG DAILY 09/10 1000 AC 09/12 PO 1002 Methylprednisolone 40 MG 0500,1700 09/11 0500 DC 09/12 IV 0442 Nicotine 14 MG DAILY 09/10 1000 AC 09/12 TOP 1002 Prednisone 10 MG DAILY 09/23 1000 AC PO 09/24 1001 Prednisone 20 MG DAILY 09/21 1000 AC PO 09/22 1001 Prednisone 30 MG DAILY 09/19 1000 AC PO 09/20 1001 Prednisone 40 MG DAILY 09/17 1000 AC PO 09/18 1001 Prednisone 50 MG DAILY 09/15 1000 AC PO 09/16 1001 Prednisone 60 MG DAILY 09/13 1000 AC PO 09/14 1001 Prednisone 60 MG ONCE 09/12 1430 CAN PO 09/24 1429 Pregabalin 75 MG BID 09/09 2200 AC 09/12 PO 1002 Trazodone HCl 50 MG QPM PRN 09/09 2015 AC PO Last 24 Hrs of Lab/Arie Results Last 24 Hrs of Labs/Mics: Laboratory Tests 09/12/16 0500: Anion Gap 10, Estimated GFR > 60, BUN/Creatinine Ratio 28.9 H, CBC w Diff MAN DIFF ORDERED, RBC 3.18 L, MCV 86.6, MCH 27.8, RDW 17.8 H, MPV 8.7, Segmented Neutrophils 73, Band Neutrophils 1, Lymphocytes 19 L, Monocytes 7, Platelet Estimate ADEQUATE, Polychromasia 1+, Hypochromic-Microcytic 1+, Poikilocytosis 1 +, Ovalocytes 1+, Stomatocytes FEW, PUBS MCHC 32.1 L, Fld Total RBCs Counted 100 Microbiology 09/11 2017 STOOL: Clostridium difficile Toxin A & B - CAN Cancelled: SPECIMEN NOT RECEIVED IN LABORATORY Assessment/Plan Assessment: Patient is a 55 YO F with PMH significant for COPD on 4L home oxygen, IDDM, peripheral neuropathy and gastroparesis, anxiety/depression, paroxysmal A.fib not on anticoagultion, Graves disease, chronic pain syndrome on methadone program, OA, recently admitted for comminuted fracture of mandible and transfered to [place]. She came here with shortness of breath, productive cough with greenish phlegm, fever Tmax 103, poor oral intake for last 2-3 days, intermittent confusion and dry heaving. When she came to ER her temperature was 97.6, pulse 94, respiratory rate 28, blood pressure 196/85 and oxygen saturation 85% on 4 L. Her ABG in ER are worse requiring BiPAP overnight. Plan: Acute on Chronic hypercarbic respiratory acidosis * she was on 2 L oxygen overnight - saturating well * started on prednisone taper 60X1, 50X2, 40X2, 30X2, 20X2, 10X2. * TRC/nebs Diabetes mellitus with peripheral neuropathy * She was found to have metabolic acidosis in ER despite respiratory acidosis. * Had a single episode of hypoglycemia yesterday - however got better after eating [place]ian ice. Today her insulin sliding scale is changed. * However she was placed on steroids, so placed on a new sliding scale to be cautious Graves disease * TSH is low with normal free T4 * continue methimazole 15mg for now Chronic pain syndrome * On methadone program Code Status * Full Code Problem List: 1. Bronchitis 2. Methadone dependence 3. Graves' disease 4. IDDM (insulin dependent diabetes mellitus) 5. COPD exacerbation 6. Respiratory acidosis 7. Pneumonia Pain Ratin Pain Location: back pain Pain Goal: Pain 4 or less Pain Plan: methadone tylenol prn Tomorrow's Labs & Rationales: ICU bundle cbc Consulting Request: Consulting Specialty: Pulmonary Disease
--- NOTE | 2016-09-12 10:28 | PN- Pulmonary ---
Subjective HPI/Critical Care Issues: pt seen and examined tele hold feeling better overall dyspnea persists but improved afebrile no n/v/d/c Objective Current Medications: Current Medications Sig/Cathy Start time Last Medication Dose Route Stop Time Status Admin Albuterol Sulfate 3 ML TID 09/09 2200 AC 09/12 INH 0842 Alprazolam 0.25 MG TID PRN 09/09 2145 AC 09/12 PO 09/16 2144 0440 Aspirin Buffered 81 MG DAILY 09/10 1000 AC 09/12 PO 0958 Azithromycin 500 MG DAILY 09/10 1000 AC 09/12 Sodium Chloride 250 ML IV 1002 Budesonide/ 2 PUF BID 09/09 2200 AC 09/12 Formoterol Fumarate INH 1002 Ceftriaxone Sodium 1,000 MG AT BEDTIME 09/09 220 AC 09/11 IV 2121 Enoxaparin Sodium 40 MG DAILY 09/10 1000 AC SC Furosemide 20 MG ONCE ONE 09/11 2030 DC 09/11 IV 09/11 Glycerin/Mineral Oil 1 KRISS TID PRN 09/12 1000 [facility] Insulin Aspart 2 UNITS .STK-MED ONE 09/12 0845 [facility] 09/12 0846 Insulin Aspart 1 UNITS ONCE ONE 09/12 0015 DC 09/12 OK 09/12 0016 0013 Insulin Aspart 0 TIDAC/HS 09/10 1200 09/12 SC 0800 Insulin Detemir 10 UNITS BID 09/09 2200 09/12 SC 0959 Methadone HCl 100 MG 0500 09/10 0500 09/12 PO 0441 Methimazole 15 MG DAILY 09/10 1000 AC 09/12 PO 1002 Methylprednisolone 40 MG Q12 09/11 1000 DC IV Methylprednisolone 40 MG 0500,1700 09/11 0500 09/12 IV 0442 Nicotine 14 MG DAILY 09/10 1000 AC 09/12 TOP 1002 Pregabalin 75 MG BID 09/09 2200 AC 09/12 PO 1002 Trazodone HCl 50 MG QPM PRN 09/09 2015 PO Vital Signs & I&O Last 24 Hrs of Vitals and I&O: Vital Signs Date Time Temp Pulse Resp B/P Pulse O2 O2 Flow FiO2 Ox Delivery Rate 09/12 0844 98 Nasal 4.0L Cannula 09/12 0542 95 Nasal 4.0L Cannula 09/12 0202 66 98 09/12 0000 95 Nasal 4.0L Cannula 09/11 2200 97.2 88 23 130/60 97 Nasal 4.0L Cannula 09/11 1600 98.4 88 22 122/60 96 Nasal 4.0L Cannula 09/11 1600 96 Nasal 4.0L Cannula 09/11 1047 94 Nasal 4.0L Cannula Intake & Output 09/12 1600 09/12 0800 09/12 0000 Intake Total 200 300 Output Total 750 980 Balance -550 -680 Intake, Oral 200 300 Output, Urine 750 980 Exam Other Physical Findings: General - Alert, awake and oriented HEENT - normocephalic, atraumatic Cardiovascular - S1, S2 Lungs - bilateral wheezing inspiratory and expiratory Abdomen - soft, bowel sounds positive, no tenderness Extremities - trace edema Results Last 24 Hrs of Lab Results: Laboratory Tests 09/12/16 0500: Anion Gap 10, Estimated GFR > 60, BUN/Creatinine Ratio 28.9 H, CBC w Diff MAN DIFF ORDERED, RBC 3.18 L, MCV 86.6, MCH 27.8, RDW 17.8 H, MPV 8.7, Segmented Neutrophils 73, Band Neutrophils 1, Lymphocytes 19 L, Monocytes 7, Platelet Estimate ADEQUATE, Polychromasia 1+, Hypochromic-Microcytic 1+, Poikilocytosis 1 +, Ovalocytes 1+, Stomatocytes FEW, PUBS MCHC 32.1 L, Fld Total RBCs Counted 100 Impression/Plan Impression/Plan Impression/Plan: Impression 55-year-old woman with acute hypercarbic and hypoxemic respiratory failure likely secondary to COPD exacerbation, opiate dependence on methadone program and possible community acquired pneumonia area and history of diabetes and atrial fibrillation that has been intermittent. Plan - D/C solumedrol, begin prednisone 60mg and reduce by 10mg every 2 days - Monitor fingersticks - Continues to follow cardiology and endocrinology recommendations - Continue empiric antibiotics at this time - Continue methadone - TRC nebs - DVT prophylaxis at all times DG GM
--- NOTE | 2016-09-12 12:46 | NUR ---
PT IS AWAKE AND ORIENTED. TRANSITIONED TO FROM TELEMETRY. WAITING BED ASSIGNMENT. V/S STABLE. SHE REPORTS CHRONIC PAIN AT A LEVEL OF 7 TO 12. SHE IS SATISFIED WITH HER CURRENT PAIN PLAN.
[2016-09-12 16:00] VITALS: BP 140/70; BP 158/76
[2016-09-13] VITALS: BP 150/74
--- NOTE | 2016-09-13 00:20 | NUR ---
PATIENT RECEIVED ALERT AND ORIENTED X3, O2 AT 4L/MIN VIA NC- BREATHE SOUNDS COARSE BUT CLEAR, O2 SAT AT 98%, NO SOB WITH SPEACH, ABDOMEN SOFT, +BS, DENIES ANY CHANGE IN BASELINE LEVEL OF CHRONIC PAIN BUT STATES NEEDS METHADONE DOSE AT 0500 TO CONTINUE FUNCTIONAL LEVEL, ABDOMEN SOFT, +BS, BLE 2+ EDEMA OF CALVES AND THIGHS- LEGS ELEVATED ON PILLOWS, SKIN PINK, WARM AND DRY, SETTLED FOR SLEEP, CALL LIGHT WITHIN REACH
[2016-09-13 06:32] LABS: HEMATOCRIT 28.9 % (37-47); MEAN CORPUSCULAR HGB 27.9 PG (27.0-31.0); MEAN CORPUSCULAR HGB CONC 32.1 G/DL (33.0-37.0); MEAN CORPUSCULAR VOLUME 86.8 FL (81.0-99.0); MEAN PLATELET VOLUME 9.4 FL (7.4-10.4); PLATELET COUNT 384 /CUMM (130-400); RBC DISTRIBUTION WIDTH 17.4 % (11.5-14.5); RED BLOOD CELL CT 3.33 /CUMM (4.20-5.40); WHITE BLOOD CELL COUNT 9.3 /CUMM (4.8-10.8)
--- NOTE | 2016-09-13 06:40 | NUR ---
0446 PATIENT AWAKE, C/O DROPPING BLOOD SUGAR, STATES OWN ACCUCHECK DEVICE READS 41- ACCUCHECK DONE- <50- PATIENT HAS REFUSED OJ, TAKEN ROMANSH ICE X3 CUPS, MILK AND PEANUT BUTTER AND CRACKERS- DR KAUR NOTIFIED 0500 PATIENT SHAKY- ACCUCHECK <50- SUGARED SODA PO 0510 ACCUCHECK < 50, PATIENT BECOMING DIAPHORETIC, DR KAUR IN- 1 AMP D50 IV ORDERED 0522 PATIENT REPORTS FEELING IMPROVED- ACCUCHECK 217 0600 PATIENT RESTING QUIETLY, SKIN PINK, WARM AND DRY, REPEAT ACCUCHECK 237, AWAITING AM MD ROUNDS
[2016-09-13 08:00] VITALS: BP 132/70
--- NOTE | 2016-09-13 08:23 | PN- Housestaff ---
Subjective Follow-up For: Acute on chronic hypercarbic respiratory failure Chronic pain syndrome Complaints: no complaints Tele-Events Since Last Visit: No significant events overnight. Subjective: I saw and examined the patient today morning. She is feeling better, no more shortness of breath. She had another episode of hypoglycemia yesterday, received an ampule of dextrose. She denies any nausea/vomiting/diarrhea. Review of Systems Constitutional: Reports: no symptoms, see HPI. EENTM: Reports: no symptoms, see HPI. Respiratory: Reports: cough. Gastrointestinal: Reports: no symptoms. Genitourinary: Reports: no symptoms. Musculoskeletal: Reports: back pain. Skin: Reports: no symptoms. Neurological/Psychological: Reports: no symptoms. Comments: ROS negative except the above. Objective Last 24 Hrs of Vital Signs/I&O Vital Signs Date Time Temp Pulse Resp B/P Pulse O2 O2 Flow FiO2 Ox Delivery Rate 09/13 823 93 Nasal 4.0L Cannula 09/13 799 94 Nasal 4.0L Cannula 09/13 799 96.0 80 20 132/70 94 Nasal 4.0L Cannula 09/13 0000 98 Nasal 4.0L Cannula 09/13 0000 97.6 82 22 150/74 98 Nasal 4.0L Cannula 09/12 2026 97 Nasal 4.0L Cannula 09/12 1600 97 Nasal 4.0L Cannula 09/12 1600 98.0 70 20 140/70 98 09/12 1600 97.1 86 20 158/76 98 Nasal Cannula Intake & Output 09/13 1600 09/13 0800 09/13 0000 Intake Total 960 975 500 Output Total 650 Balance 960 975 -150 Intake, Oral 960 975 500 Output, Urine 650 Physical Exam General Appearance: Alert, Oriented X3, Cooperative, No Acute Distress Skin: No Rashes HEENT: Atraumatic, PERRLA Neck: Supple, No JVD Cardiovascular: Regular Rate, Normal S1, Normal S2, No Murmurs Lungs: Clear to Auscultation, Normal Air Movement Abdomen: Normal Bowel Sounds, Soft, No Tenderness Neurological: Normal Gait, Normal Speech, Strength at 5/5 X4 Ext Extremities: No Clubbing, No Cyanosis Vascular: Normal Pulses, Pulses Symmetrical Current Medications: Current Medications Sig/Cathy Start time Last Medication Dose Route Stop Time Status Admin Acetaminophen 325 MG ONCE ONE 09/13 1430 DC PO 09/13 1431 Albuterol Sulfate 3 ML TID 09/09 2200 AC 09/13 INH 1430 Alprazolam 0.5 MG TID PRN 09/13 1000 AC 09/13 PO 09/20 0959 1322 Alprazolam 0.25 MG TID PRN 09/09 2145 DC 09/13 PO 09/16 2144 0552 Aspirin Buffered 81 MG DAILY 09/10 1000 AC 09/13 PO 1009 Azithromycin 500 MG DAILY 09/10 1000 DC 09/12 Sodium Chloride 250 ML IV 1002 Budesonide/ 2 PUF BID 09/09 2200 AC 09/13 Formoterol Fumarate INH 1008 Ceftriaxone Sodium 1,000 MG AT BEDTIME 09/09 2200 DC 09/12 IV 2203 Dextrose 50 GM ONCE ONE 09/13 514 CAN IV 09/13 0516 Dextrose 25 GM ONCE ONE 09/13 0515 DC 09/13 IV 09/13 0516 0510 Enoxaparin Sodium 40 MG DAILY 09/10 1000 AC SC Glycerin/Mineral Oil 1 KRISS TID PRN 09/12 1000 AC TOP Insulin Aspart 0 TIDAC/HS 09/10 1200 AC 09/13 SC 1205 Insulin Detemir 7 UNITS BID 09/13 2200 AC SC Insulin Detemir 10 UNITS BID 09/09 2200 DC 09/13 SC 1004 Magnesium Oxide 400 MG ONE ONE 09/13 0915 DC 09/13 PO 09/13 0916 1204 Methadone HCl 100 MG 0500 09/10 0500 AC 09/13 PO 0519 Methimazole 15 MG DAILY 09/10 1000 AC 09/13 PO 1008 Nicotine 14 MG DAILY 09/10 1000 AC 09/13 TOP 1006 Prednisone 10 MG DAILY 09/23 1000 AC PO 09/24 1001 Prednisone 20 MG DAILY 09/21 1000 AC PO 09/22 1001 Prednisone 30 MG DAILY 09/19 1000 AC PO 09/20 1001 Prednisone 40 MG DAILY 09/17 1000 AC PO 09/18 1001 Prednisone 50 MG DAILY 09/15 1000 AC PO 09/16 1001 Prednisone 60 MG DAILY 09/13 1000 AC 09/13 PO 09/14 1001 1008 Prednisone 60 MG ONCE 09/12 1430 CAN PO 09/24 1429 Pregabalin 75 MG BID 09/09 2200 AC 09/13 PO 1006 Trazodone HCl 50 MG QPM PRN 09/09 2014 AC PO Last 24 Hrs of Lab/Arie Results Last 24 Hrs of Labs/Mics: Laboratory Tests 09/13/16 0540: Anion Gap 12, Estimated GFR > 60, Glucose 198 H, Calcium 8.2 L, Phosphorus 3.8 , Magnesium 1.6, Total Bilirubin 0.3, AST 16, ALT 28, Albumin 3.1 L, CBC w Diff MAN DIFF ORDERED, RBC 3.33 L, MCV 86.8, MCH 27.9, RDW 17.4 H, MPV 9.4, Segmented Neutrophils 53, Lymphocytes 35, Monocytes 11 H, Platelet Estimate ADEQUATE, Hypochromic-Microcytic 1+, Anisocytosis 1+, Microcytic Cells 1+, PUBS MCHC 32.1 L, Fld Total RBCs Counted 100 Lines/Diet/Fluids Lines: peripheral lines Assessment/Plan Assessment: Patient is a 55 YO F with PMH significant for COPD on 4L home oxygen, IDDM, peripheral neuropathy and gastroparesis, anxiety/depression, paroxysmal A.fib not on anticoagultion, Graves disease, chronic pain syndrome on methadone program, OA, recently admitted for comminuted fracture of mandible and [facility]. She came here with shortness of breath, productive cough with greenish phlegm, fever Tmax 103, poor oral intake for last 2-3 days, intermittent confusion and dry heaving. When she came to ER her temperature was 97.6, pulse 94, respiratory rate 28, blood pressure 196/85 and oxygen saturation 85% on 4 L. Her ABG in ER are worse requiring BiPAP overnight. She is currently on 4L of oxygen. Plan: Acute on Chronic hypercarbic respiratory acidosis * she was on 4L oxygen overnight - saturating well * started on prednisone taper 60X1, 50X2, 40X2, 30X2, 20X2, 10X2. * TRC/nebs * Discontinued her antibiotics (ceftriaxone and azithromycin) Diabetes mellitus with peripheral neuropathy * She was found to have metabolic acidosis in ER despite respiratory acidosis. * Had a single episode of hypoglycemia yesterday - however got better after eating [place] ice. Today her insulin sliding scale is changed. * However she was placed on steroids, so placed on a new sliding scale to be cautious Graves disease * TSH is low with normal free T4 * continue methimazole 15mg for now * Will recheck her TSH and free T4 tomorrow. Chronic pain syndrome * On methadone program Code Status * Full Code Problem List: 1. Graves' disease 2. Methadone dependence 3. Bronchitis 4. IDDM (insulin dependent diabetes mellitus) 5. Methadone use 6. COPD exacerbation 7. Respiratory acidosis Pain Ratin Pain Location: back pain and headache Pain Goal: Pain 4 or less Pain Plan: Methadone and tylenol prn Tomorrow's Labs & Rationales: ICU bundle CBC Consulting Request: Consulting Specialty: Pulmonary Disease
--- NOTE | 2016-09-13 09:51 | PN- Pulmonary ---
Subjective HPI/Critical Care Issues: pt seen and examined hypoglycemic endocrinology following feeling well 93% on 4LNC no n/v/d/c dyspnea at baseline improving Objective Current Medications: Current Medications Sig/Cathy Start time Last Medication Dose Route Stop Time Status Admin Albuterol Sulfate 3 ML TID 09/09 2200 AC 09/13 INH 0822 Alprazolam 0.25 MG TID PRN 09/09 2145 AC 09/13 PO 09/16 2144 0552 Aspirin Buffered 81 MG DAILY 09/10 1000 AC 09/12 PO 0958 Azithromycin 500 MG DAILY 09/10 1000 AC 09/12 Sodium Chloride 250 ML IV 1002 Budesonide/ 2 PUF BID 09/09 2200 AC 09/12 Formoterol Fumarate INH 2204 Ceftriaxone Sodium 1,000 MG AT BEDTIME 09/09 2200 AC 09/12 IV 2203 Dextrose 50 GM ONCE ONE 09/13 0515 CAN IV 09/13 0516 Dextrose 25 GM ONCE ONE 09/13 0515 DC 09/13 IV 09/13 0516 0510 Enoxaparin Sodium 40 MG DAILY 09/10 1000 AC SC Glycerin/Mineral Oil 1 KRISS TID PRN 09/12 1000 AC TOP Insulin Aspart 0 TIDAC/HS 09/10 1200 AC 09/12 SC 1709 Insulin Detemir 10 UNITS BID 09/09 2200 AC 09/12 SC 2203 Magnesium Oxide 400 MG ONE ONE 09/13 0915 DC PO 09/13 0916 Methadone HCl 100 MG 0500 09/10 0500 AC 09/13 PO 0519 Methimazole 15 MG DAILY 09/10 1000 AC 09/12 PO 1002 Methylprednisolone 40 MG 0500,1700 09/11 0500 DC 09/12 IV 0442 Nicotine 14 MG DAILY 09/10 1000 AC 09/12 TOP 1002 Prednisone 10 MG DAILY 09/23 1000 AC PO 09/24 1001 Prednisone 20 MG DAILY 09/21 1000 AC PO 09/22 1001 Prednisone 30 MG DAILY 09/19 1000 AC PO 09/20 1001 Prednisone 40 MG DAILY 09/17 1000 AC PO 09/18 1001 Prednisone 50 MG DAILY 09/15 1000 AC PO 09/16 1001 Prednisone 60 MG DAILY 09/13 1000 AC PO 09/14 1001 Prednisone 60 MG ONCE 09/12 1430 CAN PO 09/24 1429 Pregabalin 75 MG BID 09/09 2200 AC 09/12 PO 2020 Trazodone HCl 50 MG QPM PRN 09/09 2014 AC PO Vital Signs & I&O Last 24 Hrs of Vitals and I&O: Vital Signs Date Time Temp Pulse Resp B/P Pulse O2 O2 Flow FiO2 Ox Delivery Rate 09/13 823 93 Nasal 4.0L Cannula 09/13 799 96.0 80 20 132/70 94 Nasal 4.0L Cannula 09/13 0000 98 Nasal 4.0L Cannula 09/13 0000 97.6 82 22 150/74 98 Nasal 4.0L Cannula 09/12 2026 97 Nasal 4.0L Cannula 09/12 1599 97 Nasal 4.0L Cannula 09/12 1599 98.0 70 20 140/70 98 09/12 1600 97.1 86 20 158/76 98 Nasal Cannula Intake & Output 09/13 0000 Intake Total 975 500 Output Total 650 Balance 975 -150 Intake, Oral 975 500 Output, Urine 650 Exam Other Physical Findings: General - Alert, awake and oriented HEENT - normocephalic, atraumatic Cardiovascular - S1, S2 Lungs - bilateral wheezing inspiratory and expiratory Abdomen - soft, bowel sounds positive, no tenderness Extremities - trace edema Results Last 24 Hrs of Lab Results: Laboratory Tests 09/13/16 0540: Anion Gap 12, Estimated GFR > 60, Glucose 198 H, Calcium 8.2 L, Phosphorus 3.8 , Magnesium 1.6, Total Bilirubin 0.3, AST 16, ALT 28, Albumin 3.1 L, CBC w Diff MAN DIFF ORDERED, RBC 3.33 L, MCV 86.8, MCH 27.9, RDW 17.4 H, MPV 9.4, Segmented Neutrophils 53, Lymphocytes 35, Monocytes 11 H, Platelet Estimate ADEQUATE, Hypochromic-Microcytic 1+, Anisocytosis 1+, Microcytic Cells 1+, PUBS MCHC 32.1 L, Fld Total RBCs Counted 100 Impression/Plan Impression/Plan Impression/Plan: Impression 55-year-old woman with acute hypercarbic and hypoxemic respiratory failure likely secondary to COPD exacerbation, opiate dependence on methadone program and possible community acquired pneumonia area and history of diabetes and atrial fibrillation that has been intermittent. Plan - prednisone taper by 10mg every 2 days - stop abx today and monitor off, monitor for fevers/wbc - Monitor fingersticks - Continues to follow cardiology and endocrinology recommendations - Continue empiric antibiotics at this time - Continue methadone - TRC nebs - DVT prophylaxis at all times DG GM DC planning
--- NOTE | 2016-09-13 10:47 | PN- Diabetes ---
Assessment/Plan Assessment: 55 y/o female, Hx of smoking, COPD, brittle diabetes type 1 and Graves' disease, was admitted for respiratory distress due to COPD exacerbation along with significantly elevated BNP of 7870. She was on BIPAP and was put on Solumedrol 40 mg every 6 hours initially. Solumedrol was discontinued on 09/12/2016. She is on prefnisone 60 mg daily today. Currently she is on Levemir 10 units twice a day. Novolog coverage before meals and Novolog coverage at bedtime was adjusted on 09/12/2016. 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 With regards to Graves' disease, she is on Methimazole 15 mg daily. On 09/09/2016, TSH < 0.015 and free T4 1.59. Plan: 1. decrease Levemir to 7 units twice a day ( snack at bedtime if her FSG is < 180); 2. continue the current Novolog coverage before meals. 3. continue the current Novolog coverage at bedtime. 4. monitor FSGs. 5. with regards to Graves' disease, she is on Methimazole 15 mg daily. Please monitor TSH and free T4 level tomorrow morning. will follow. 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 Objective Last 24 Hrs of Vital Signs/I&O Vital Signs Date Time Temp Pulse Resp B/P Pulse O2 O2 Flow FiO2 Ox Delivery Rate 09/13 823 93 Nasal 4.0L Cannula 09/13 799 96.0 80 20 132/70 94 Nasal 4.0L Cannula 09/13 0000 98 Nasal 4.0L Cannula 09/13 0000 97.6 82 22 150/74 98 Nasal 4.0L Cannula 09/12 2026 97 Nasal 4.0L Cannula 09/12 1599 97 Nasal 4.0L Cannula 09/12 1600 98.0 70 20 140/70 98 09/12 1600 97.1 86 20 158/76 98 Nasal Cannula Intake & Output 09/13 0809/13 0000 Intake Total 975 500 Output Total 650 Balance 975 -150 Intake, Oral 975 500 Output, Urine 650 Findings Pertinent Lab/Arie Results: Laboratory Tests 09/13 0540 Chemistry Sodium (137 - 145 mmol/L) 136 L Potassium (3.5 - 5.1 mmol/L) 4.3 Chloride (98 - 107 mmol/L) 88 L Carbon Dioxide (22 - 30 mmol/L) 36 H Anion Gap (5 - 16) 12 BUN (7 - 17 mg/dL) 25 H Creatinine (0.5 - 1.0 mg/dL) 0.7 Estimated GFR (>60 ml/min) > 60 Glucose (65 - 99 mg/dL) 198 H Calcium (8.4 - 10.2 mg/dL) 8.2 L Phosphorus (2.5 - 4.5 mg/dL) 3.8 Magnesium (1.6 - 2.3 mg/dL) 1.6 Total Bilirubin (0.2 - 1.3 mg/dL) 0.3 AST (14 - 36 U/L) 16 ALT (9 - 52 U/L) 28 Albumin (3.5 - 5.0 g/dL) 3.1 L Hematology CBC w Diff MAN DIFF ORDERED WBC (4.8 - 10.8 /CUMM) 9.3 RBC (4.20 - 5.40 /CUMM) 3.33 L Hgb (12.0 - 16.0 G/DL) 9.3 L Hct (37 - 47 %) 28.9 L MCV (81.0 - 99.0 FL) 86.8 MCH (27.0 - 31.0 PG) 27.9 RDW (11.5 - 14.5 %) 17.4 H Plt Count (130 - 400 /CUMM) 384 MPV (7.4 - 10.4 FL) 9.4 Segmented Neutrophils (42.2 - 75.2 %) 53 Lymphocytes (20.5 - 51.1 %) 35 Monocytes (1.7 - 9.3 %) 11 H Platelet Estimate (ADEQUATE) ADEQUATE Hypochromic-Microcytic 1+ Anisocytosis 1+ Microcytic Cells 1+ PUBS MCHC (33.0 - 37.0 G/DL) 32.1 L Other Body Source Fld Total RBCs Counted (%) 100
[2016-09-13 16:00] VITALS: BP 120/60
[2016-09-14] VITALS: BP 164/74
[2016-09-14 01:50] VITALS: BP 152/64
[2016-09-14 06:17] LABS: HEMATOCRIT 27.8 % (37-47); MEAN CORPUSCULAR HGB 27.5 PG (27.0-31.0); MEAN CORPUSCULAR VOLUME 86.2 FL (81.0-99.0); MEAN PLATELET VOLUME 8.4 FL (7.4-10.4); PLATELET COUNT 364 /CUMM (130-400); RBC DISTRIBUTION WIDTH 17.4 % (11.5-14.5); RED BLOOD CELL CT 3.22 /CUMM (4.20-5.40); WHITE BLOOD CELL COUNT 8.5 /CUMM (4.8-10.8)
[2016-09-14 08:00] VITALS: BP 142/80
--- NOTE | 2016-09-14 09:17 | PN- Pulmonary ---
Subjective HPI/Critical Care Issues: Patient seen and examined. No chest pain, at respiratory baseline. No nausea, vomiting, diarrhea or constipation. Afebrile and hemodynamically stable. Objective Current Medications: Current Medications Sig/Cathy Start time Last Medication Dose Route Stop Time Status Admin Acetaminophen 650 MG Q6P PRN 09/13 1515 AC 09/14 PO 0739 Acetaminophen 325 MG ONCE ONE 09/13 1430 CAN PO 09/13 1431 Albuterol Sulfate 3 ML TID 09/09 2200 AC 09/14 INH 0852 Alprazolam 0.5 MG TID PRN 09/13 1000 AC 09/14 PO 09/20 0959 0510 Alprazolam 0.25 MG TID PRN 09/09 2145 DC 09/13 PO 09/16 2144 0552 Aspirin Buffered 81 MG DAILY 09/10 1000 AC 09/13 PO 1009 Azithromycin 500 MG DAILY 09/10 1000 DC 09/12 Sodium Chloride 250 ML IV 1002 Budesonide/ 2 PUF BID 09/09 2200 AC 09/13 Formoterol Fumarate INH 2109 Ceftriaxone Sodium 1,000 MG AT BEDTIME 09/09 2200 DC 09/12 IV 2203 Enoxaparin Sodium 40 MG DAILY 09/10 1000 AC SC Glycerin/Mineral Oil 1 KRISS TID PRN 09/12 1000 AC TOP Hydroxyzine HCl 10 MG TID PRN 09/14 0915 AC PO Insulin Aspart 2 UNITS ONCE ONE 09/13 2345 DC 09/14 SC 09/13 2346 0016 Insulin Aspart 0 TIDAC/HS 09/10 1200 AC 09/14 SC 0800 Insulin Detemir 7 UNITS BID 09/13 2200 AC 09/13 SC 2107 Insulin Detemir 10 UNITS BID 09/09 2200 DC 09/13 SC 1004 Magnesium Oxide 400 MG ONE ONE 09/13 0915 DC 09/13 PO 09/13 0916 1204 Methadone HCl 100 MG 0500 09/10 0500 AC 09/14 PO 0505 Methimazole 15 MG DAILY 09/10 1000 AC 09/13 PO 1008 Nicotine 14 MG DAILY 09/10 1000 AC 09/13 TOP 1006 Prednisone 10 MG DAILY 09/23 1000 AC PO 09/24 1001 Prednisone 20 MG DAILY 09/21 1000 AC PO 09/22 1001 Prednisone 30 MG DAILY 09/19 1000 AC PO 09/20 1001 Prednisone 40 MG DAILY 09/17 1000 AC PO 09/18 1001 Prednisone 50 MG DAILY 09/15 1000 AC PO 09/16 1001 Prednisone 60 MG DAILY 09/13 1000 AC 09/13 PO 09/14 1001 1008 Pregabalin 75 MG BID 09/09 2199 AC 09/13 PO 2106 Trazodone HCl 50 MG QPM PRN 09/09 2014 AC PO Vital Signs & I&O Last 24 Hrs of Vitals and I&O: Vital Signs Date Time Temp Pulse Resp B/P Pulse O2 O2 Flow FiO2 Ox Delivery Rate 09/14 0855 94 Nasal 4.0L Cannula 09/14 0150 152/64 09/14 0000 97.3 84 20 164/74 93 Nasal 4.0L Cannula 09/14 0000 93 Nasal 4.0L Cannula 09/13 2007 96 Nasal 4.0L Cannula 09/13 1600 96 Nasal 4.0L Cannula 09/13 1600 97.1 90 20 120/60 96 Nasal 4.0L Cannula Intake & Output 09/14 1600 09/14 0800 09/14 0000 Intake Total 600 1000 Output Total Balance 600 1000 Intake, Oral 600 1000 Number 1 Bowel Movements Exam Other Physical Findings: General - Alert, awake and oriented HEENT - normocephalic, atraumatic Cardiovascular - S1, S2 Lungs - bilateral wheezing inspiratory and expiratory Abdomen - soft, bowel sounds positive, no tenderness Extremities - trace edema Results Last 24 Hrs of Lab Results: Laboratory Tests 09/14/16 0600: Sodium Cancelled, Potassium Cancelled, Chloride Cancelled, Carbon Dioxide Cancelled, Anion Gap Cancelled, BUN Cancelled, Creatinine Cancelled, BUN/ Creatinine Ratio Cancelled 09/14/16 0500: Anion Gap 9, Estimated GFR > 60, BUN/Creatinine Ratio 31.3 H, TSH 0.030 L, Free T4 0.79, CBC w Diff MAN DIFF ORDERED, RBC 3.22 L, MCV 86.2, MCH 27.5, RDW 17.4 H, MPV 8.4, Segmented Neutrophils 74, Lymphocytes 21, Monocytes 5, Platelet Estimate ADEQUATE, Hypochromic-Microcytic 2+, Poikilocytosis 1+, Anisocytosis 1+, PUBS MCHC 32.0 L Impression/Plan Impression/Plan Impression/Plan: Impression 55-year-old woman with acute hypercarbic and hypoxemic respiratory failure likely secondary to COPD exacerbation, opiate dependence on methadone program and possible community acquired pneumonia area and history of diabetes and atrial fibrillation that has been intermittent. Plan - prednisone taper by 10mg every 2 days - Off antibiotics - Monitor fingersticks - Continues to follow cardiology and endocrinology recommendations - Continue methadone - TRC nebs - DVT prophylaxis at all times DG GM DC planning
--- NOTE | 2016-09-14 09:39 | PN- Diabetes ---
Assessment/Plan Assessment: 55 y/o female, Hx of smoking, COPD, brittle diabetes type 1 and Graves' disease, was admitted for respiratory distress due to COPD exacerbation along with significantly elevated BNP of 7870. She was on BIPAP and was put on Solumedrol 40 mg every 6 hours initially. Solumedrol was discontinued on 09/12/2016. She is on prednisone 60 mg daily today. Levemir was decreased to 7 units twice a day after she had hypoglycemia. Novolog coverage before meals and Novolog coverage at bedtime was adjusted on 09/12/2016. With regards to Graves' disease, she is on Methimazole 15 mg daily. On 09/09/2016, TSH < 0.015 and free T4 1.59. On 09/14/2016, her TSH is 0.030, free T4 0.79. Plan: 1. DM type 1 ---increase Levemir to 8 units twice a day; ---continue the current Novolog coverage before meals and Novolog coverage at bedtime; ---monitor FSGs. 2. Graves; disease: ---decrease Methimazole to 10 mg daily. ---monitot TSH and free T4 in 2-3 weeks. will follow. Subjective Subjective: Her breathing is better; her glucose levels are not controlled. Objective Last 24 Hrs of Vital Signs/I&O Vital Signs Date Time Temp Pulse Resp B/P Pulse O2 O2 Flow FiO2 Ox Delivery Rate 09/14 854 94 Nasal 4.0L Cannula 09/14 0150 152/64 09/14 0000 97.3 84 20 164/74 93 Nasal 4.0L Cannula 09/14 0000 93 Nasal 4.0L Cannula 09/13 2007 96 Nasal 4.0L Cannula 09/13 1599 96 Nasal 4.0L Cannula 09/13 1599 97.1 90 20 120/60 96 Nasal 4.0L Cannula Intake & Output 09/14 1600 09/14 0800 09/14 0000 Intake Total 600 1000 Output Total Balance 600 1000 Intake, Oral 600 1000 Number 1 Bowel Movements Findings Pertinent Lab/Arie Results: Laboratory Tests 09/14 09/14 0600 0500 Chemistry Sodium (137 - 145 mmol/L) Cancelled 133 L Potassium (3.5 - 5.1 mmol/L) Cancelled 4.6 Chloride (98 - 107 mmol/L) Cancelled 86 L Carbon Dioxide (22 - 30 mmol/L) Cancelled 38 H Anion Gap (5 - 16) Cancelled 9 BUN (7 - 17 mg/dL) Cancelled 25 H Creatinine (0.5 - 1.0 mg/dL) Cancelled 0.8 Estimated GFR (>60 ml/min) > 60 BUN/Creatinine Ratio (7 - 25 %) Cancelled 31.3 H TSH (0.270 - 4.200 uIU/mL) 0.030 L Free T4 (0.64 - 1.79 ng/dL) 0.79 Hematology CBC w Diff MAN DIFF ORDERED WBC (4.8 - 10.8 /CUMM) 8.5 RBC (4.20 - 5.40 /CUMM) 3.22 L Hgb (12.0 - 16.0 G/DL) 8.9 L Hct (37 - 47 %) 27.8 L MCV (81.0 - 99.0 FL) 86.2 MCH (27.0 - 31.0 PG) 27.5 RDW (11.5 - 14.5 %) 17.4 H Plt Count (130 - 400 /CUMM) 364 MPV (7.4 - 10.4 FL) 8.4 Segmented Neutrophils (42.2 - 75.2 %) 74 Lymphocytes (20.5 - 51.1 %) 21 Monocytes (1.7 - 9.3 %) 5 Platelet Estimate (ADEQUATE) ADEQUATE Hypochromic-Microcytic 2+ Poikilocytosis 1+ Anisocytosis 1+ PUBS MCHC (33.0 - 37.0 G/DL) 32.0 L
--- NOTE | 2016-09-14 11:32 | PN- Housestaff ---
Subjective Follow-up For: Acute on chronic hypercarbic respiratory failure Chronic pain syndrome Subjective: Patient seen and examined. She is seen sitting upright in her bed resting comfortably maintained on a nasal cannula. She appears to be in no acute distress. She reports that her breathing is much better today and she is very comfortable with the current oxygen supply. She does admit to having a headache for the past 2 days that isn't responding well to Tylenol and to a persistent productive cough of green sputum. Additionally she denies any fever, chills, chest pain, increased shortness of breath, palpitations, nausea, vomiting, diarrhea. No overnight events reported. Review of Systems Constitutional: Reports: see HPI. Objective Last 24 Hrs of Vital Signs/I&O Vital Signs Date Time Temp Pulse Resp B/P Pulse O2 O2 Flow FiO2 Ox Delivery Rate 09/14 854 94 Nasal 4.0L Cannula 09/14 799 98 Nasal 4.0L Cannula 09/14 0150 152/64 09/14 0000 97.3 84 20 164/74 93 Nasal 4.0L Cannula 09/14 0000 93 Nasal 4.0L Cannula 09/13 2007 96 Nasal 4.0L Cannula 09/13 1599 96 Nasal 4.0L Cannula 09/13 1600 97.1 90 20 120/60 96 Nasal 4.0L Cannula Intake & Output 09/14 1600 09/14 0000 Intake Total 600 1000 Output Total Balance 600 1000 Intake, Oral 600 1000 Number 1 Bowel Movements Physical Exam General Appearance: Alert, Oriented X3, Cooperative, No Acute Distress Other Physical Findings: General -well-developed, pleasant woman in no acute distress HEENT - NCAT, PERRL, EOMI, anicteric sclera Cardio - S1, S2 w/o murmurs/gallops/rubs Resp -minimally diminished airflow without crackles/wheezing, nasal cannula in place GI -soft, nontender, nondistended, bowel sounds present Neuro - Awake and alert, CN II - XII grossly intact Extremities-multiple minor wounds without evidence of local infection or drainage Current Medications: Current Medications Sig/Cathy Start time Last Medication Dose Route Stop Time Status Admin Acetaminophen 650 MG Q6P PRN 09/13 1515 AC 09/14 PO 0739 Acetaminophen 325 MG ONCE ONE 09/13 1430 CAN PO 09/13 1431 Albuterol Sulfate 3 ML TID 09/09 2200 AC 09/14 INH 0852 Alprazolam 1 MG TID PRN 09/14 1202 AC PO 09/20 0959 Alprazolam 0.5 MG TID PRN 09/13 1000 DC 09/14 PO 09/20 0959 0510 Aspirin Buffered 81 MG DAILY 09/10 1000 AC 09/14 PO 1030 Budesonide/ 2 PUF BID 09/09 2200 AC 09/14 Formoterol Fumarate INH 1032 Enoxaparin Sodium 40 MG DAILY 09/10 1000 AC SC Glycerin/Mineral Oil 1 KRISS TID PRN 09/12 1000 AC TOP Hydroxyzine HCl 10 MG TID PRN 09/14 0915 AC 09/14 PO 0930 Ibuprofen 400 MG Q6P PRN 09/14 1200 AC PO Insulin Aspart 2 UNITS ONCE ONE 09/13 2345 DC 09/14 SC 09/13 2346 0016 Insulin Aspart 0 TIDAC/HS 09/10 1200 AC 09/14 SC 1157 Insulin Detemir 8 UNITS BID 09/14 1000 AC 09/14 SC 1030 Insulin Detemir 7 UNITS BID 09/13 2200 DC 09/13 SC 2107 Methadone HCl 100 MG 0500 09/10 0500 AC 09/14 PO 0505 Methimazole 10 MG DAILY 09/14 1000 AC 09/14 PO 1032 Methimazole 15 MG DAILY 09/10 1000 DC 09/13 PO 1008 Nicotine 14 MG DAILY 09/10 1000 AC 09/14 TOP 1033 Prednisone 10 MG DAILY 09/23 1000 AC PO 09/24 1001 Prednisone 20 MG DAILY 09/21 1000 AC PO 09/22 1001 Prednisone 30 MG DAILY 09/19 1000 AC PO 09/20 1001 Prednisone 40 MG DAILY 09/17 1000 AC PO 09/18 1001 Prednisone 50 MG DAILY 09/15 1000 AC PO 09/16 1001 Prednisone 60 MG DAILY 09/13 1000 DC 09/14 PO 09/14 1001 1031 Pregabalin 75 MG BID 09/09 2200 AC 09/14 PO 1028 Trazodone HCl 50 MG QPM PRN 09/09 2015 AC PO Last 24 Hrs of Lab/Arie Results Last 24 Hrs of Labs/Mics: Laboratory Tests 09/14/16 0600: Sodium Cancelled, Potassium Cancelled, Chloride Cancelled, Carbon Dioxide Cancelled, Anion Gap Cancelled, BUN Cancelled, Creatinine Cancelled, BUN/ Creatinine Ratio Cancelled 09/14/16 0500: Anion Gap 9, Estimated GFR > 60, BUN/Creatinine Ratio 31.3 H, TSH 0.030 L, Free T4 0.79, CBC w Diff MAN DIFF ORDERED, RBC 3.22 L, MCV 86.2, MCH 27.5, RDW 17.4 H, MPV 8.4, Segmented Neutrophils 74, Lymphocytes 21, Monocytes 5, Platelet Estimate ADEQUATE, Hypochromic-Microcytic 2+, Poikilocytosis 1+, Anisocytosis 1+, PUBS MCHC 32.0 L Assessment/Plan Assessment: Levemir was increased to 8 units twice a day and methimazole was reduced to 10 g daily. TSH/free T4 should be monitored and 2/3 weeks per endocrinology consult. Prednisone taper will continue and she is to be followed off antibiotics. She remains a general medicine hold and will be transferred once a bed is available. Problem list: -Acute on chronic hypercarbic respiratory failure -Graves' disease, on methimazole -Chronic pain syndrome, on methadone Respiratory: Patient with a history of chronic hypercarbic respiratory failure on 4.0L O2 at home, current every day smoker admitted for evaluation of worsening SOB. - Continue Symbicort - Continue prednisone taper - No antibiotics - Pulmonology consult following Endocrine: Patient with a history of insulin dependent diabetes mellitus, peripheral neuropathy and graves disease. - Accuchecks - Methimazone decreased to 10mg PO Daily - Novolog Sliding scale insulin TIDAC/HS - Levemir increased to 8 units SC BID - Lyrica 75mg PO Daily - Endocrinology consult following - Obtain TSH/T4 in 2-3 weeks time Musculoskeletal/Neurology: Patient with a history of chronic pain syndrome. - Continue Methadone Psychiatry: History of anxiety and depression. - Alprazolam increased to home dose of 1mg PO TID Diet - Consistent Carb DVT PPx - lovenox Code status - FULL CODE Problem List: 1. COPD exacerbation Pain Ratin Pain Location: chronic pain Pain Goal: Pain 4 or less Pain Plan: as noted in plan Tomorrow's Labs & Rationales: CBC ICU bundle Consulting Request: Consulting Specialty: Pulmonary Disease
[2016-09-14 15:58] VITALS: BP 162/78
[2016-09-15 00:10] VITALS: BP 157/76
--- NOTE | 2016-09-15 05:30 | NUR ---
PT'S BLOOD SUGAR CHECKED PER HER REQUEST. FINGERSTICK 446. TYREL CARVER NOTIFIED. VERBAL ORDER RECEIVED TO GIVE MORNING DOSE OF NOVOLOG(6 UNITS) AND RECHECK IN ONE HOUR. WILL MONITOR.
[2016-09-15 07:49] LABS: HEMATOCRIT 28.8 % (37-47); MEAN CORPUSCULAR HGB 27.4 PG (27.0-31.0); MEAN CORPUSCULAR HGB CONC 31.5 G/DL (33.0-37.0); MEAN CORPUSCULAR VOLUME 87.1 FL (81.0-99.0); MEAN PLATELET VOLUME 8.8 FL (7.4-10.4); PLATELET COUNT 377 /CUMM (130-400); RBC DISTRIBUTION WIDTH 17.7 % (11.5-14.5); RED BLOOD CELL CT 3.31 /CUMM (4.20-5.40); WHITE BLOOD CELL COUNT 12.6 /CUMM (4.8-10.8)
--- NOTE | 2016-09-15 08:23 | PN- Diabetes ---
Assessment/Plan Assessment: 55 y/o female, Hx of smoking, COPD, brittle diabetes type 1 and Graves' disease, was admitted for respiratory distress due to COPD exacerbation along with significantly elevated BNP of 7870. She was on BIPAP and was put on Solumedrol 40 mg every 6 hours initially. Solumedrol was discontinued on 09/12/2016. She is on prednisone taper. She will be on prednisone 50 mg today. Levemir was incresaed to 8 units twice a day. Novolog coverage before meals and Novolog coverage at bedtime was adjusted on 09/12/2016. Her FSGs were 216, 186, 262, 329, 447 and 301. With regards to Graves' disease, she is on Methimazole 15 mg daily. On 09/09/2016, TSH < 0.015 and free T4 1.59. On 09/14/2016, her TSH is 0.030, free T4 0.79. Methimazole was decreased to 10 mg daily. Plan: DM: continue the current DM regimen for now; encourage patient to pay more attention to diet; monitor FSGs. Graves' disease: continue Methimazole 10 mg daily for now; monitor TFT in 2-3 weeks. F/U in office after discharge. Subjective Subjective: Her breathing is better; her glucose level has been up and down. Objective Last 24 Hrs of Vital Signs/I&O Vital Signs Date Time Temp Pulse Resp B/P Pulse O2 O2 Flow FiO2 Ox Delivery Rate 09/15 0703 Nasal 4.0L Cannula 09/15 0010 97.9 89 20 157/76 98 Nasal 4.0L Cannula 09/15 0000 Nasal 4.0L Cannula 09/14 2135 Nasal 4.0L Cannula 09/14 1600 95 Nasal 4.0L Cannula 09/14 1558 97.5 93 21 162/78 95 Nasal 4.0L Cannula 09/14 0855 94 Nasal 4.0L Cannula Intake & Output 09/15 1600 09/15 0800 09/15 0000 Intake Total 700 Output Total Balance 700 Intake, Oral 700 Findings Pertinent Lab/Arie Results: Laboratory Tests 09/15 0650 Chemistry Sodium (137 - 145 mmol/L) 135 L Potassium (3.5 - 5.1 mmol/L) 4.6 Chloride (98 - 107 mmol/L) 88 L Carbon Dioxide (22 - 30 mmol/L) 38 H Anion Gap (5 - 16) 8 BUN (7 - 17 mg/dL) 33 H Creatinine (0.5 - 1.0 mg/dL) 0.9 Estimated GFR (>60 ml/min) > 60 Glucose (65 - 99 mg/dL) 198 H Calcium (8.4 - 10.2 mg/dL) 7.9 L Phosphorus (2.5 - 4.5 mg/dL) 4.1 Magnesium (1.6 - 2.3 mg/dL) 1.9 Total Bilirubin (0.2 - 1.3 mg/dL) 0.3 AST (14 - 36 U/L) 15 ALT (9 - 52 U/L) 29 Albumin (3.5 - 5.0 g/dL) 3.1 L Hematology CBC w Diff Pending WBC Pending RBC Pending Hgb Pending Hct Pending MCV Pending MCH Pending RDW Pending Plt Count Pending MPV Pending PUBS MCHC Pending
[2016-09-15 09:16] VITALS: BP 140/74
--- NOTE | 2016-09-15 11:33 | PN- Housestaff ---
See Addendum Subjective Follow-up For: Acute on chronic hypercapnic hypoxic respiratory failure secondary to COPD exacerbation and/or community-acquired pneumonia Graves' disease Insulin-dependent diabetes mellitus Chronic pain Complaints: dyspnea on exertion extreme weakness Anxiety Diarrhea Subjective: Was visited and examined this morning. Despite being on 4 L of oxygen nasal cannula patient complains of exertional dysrhythmia. She is not able to talk in long sentences using short sentences for communication she seems to be in mild respiratory distress. Vital signs are stable patient is not hypotensive or tachycardic. Review of Systems Constitutional: Denies: chills, diaphoresis, fever, malaise, weakness, unexplained weight loss. EENTM: Denies: blurred vision, double vision, visual changes, eye pain, eye drainage, eye tearing, icterus, ear discharge, ear pain, ear redness, hearing changes, nasal congestion, epistaxis, nasal pain, throat pain, throat swelling, mouth pain, tooth pain. Cardiovascular: Denies: chest pain, edema, orthopena, palpitations, peripheral edema, syncope. Respiratory: Reports: cough, short of breath, sputum production. Denies: wheezing. Gastrointestinal: Reports: diarrhea. Denies: no symptoms, see HPI, abdominal pain, bloating, constipation, distention, bowel incontinence, melena, nausea, bloody stool, changes in stool, vomiting, steatorrhea. Genitourinary: Reports: no symptoms. Musculoskeletal: Reports: no symptoms. Skin: Reports: no symptoms. Neurological/Psychological: Reports: no symptoms. Objective Last 24 Hrs of Vital Signs/I&O Vital Signs Date Time Temp Pulse Resp B/P Pulse O2 O2 Flow FiO2 Ox Delivery Rate 09/15 0816 98.2 94 18 140/74 99 Nasal 4.0L Cannula 09/15 0803 Nasal 4.0L Cannula 09/15 0010 97.9 89 20 157/76 98 Nasal 4.0L Cannula 09/15 0000 Nasal 4.0L Cannula 09/14 2135 Nasal 4.0L Cannula 09/14 1600 95 Nasal 4.0L Cannula 09/14 1558 97.5 93 21 162/78 95 Nasal 4.0L Cannula Intake & Output 09/15 1600 09/15 0800 09/15 0000 Intake Total 700 Output Total Balance 700 Intake, Oral 700 Physical Exam General Appearance: Alert, Oriented X3, Cooperative, Mild Distress Skin: No Rashes, No Breakdown, No Significant Lesion HEENT: Atraumatic, PERRLA, EOMI, Mucous Membr. moist/pink Neck: Supple, No JVD, No thryomegaly, +2 Carotid Pulse wo Bruit, No LAD Lymphatic: Axillary nl, Cervical nl Cardiovascular: Normal S1, Normal S2, No Murmurs Lungs: Clear to Auscultation, Normal Air Movement Abdomen: Soft, No Tenderness, No Hepatospenomegaly Neurological: Normal Gait, Normal Speech Extremities: bilateral 2+ pitting edema of lower extremities Vascular: Normal Pulses Breasts: Breast appear nl Assessment/Plan Assessment: 55-year-old woman with past medical history of severe COPD on 4 L of oxygen frequent admissions for COPD exacerbation previously required ICU admission for COPD exacerbation due to hypoxic respiratory failure but has not been intubated for COPD exacerbation, insulin-dependent diabetes mellitus, gastroparesis, anxiety and depression, paroxysmal atrial fibrillation not on anticoagulation, Graves' disease, chronic pain syndrome on methadone program, osteoarthritis, is admitted for respiratory acidosis(hypoxic and hypercapnic respiratory failure due to COPD exacerbation and or pneumonia). Problem list: -Acute on chronic hypercarbic respiratory failure -Graves' disease, on methimazole -Chronic pain syndrome, on methadone #1 hypoxic hypercapnic respiratory failure-improving * Patient is on 4 L of oxygen; continue oxygen therapy goals PaO2 above 55 or O2 saturation above 88% * Severe COPD with evidence of right ventricular and failure and pulmonary hypertension-patient needs to be on combination therapy of inhaled glucocorticoids lama and labral and short acting with her daughter anergic agonist for symptomatic treatment * Continue prednisone taper * Albuterol (Proventil) 3 mL 3 times a day inhaler * Combination inhaled glucocorticoids and LABA: Continue with budenoside/ Formoterol 2 puffs 3 times a day * Possible benefit from long-acting anticholinergic inhalers * Follow pulmonology recommendations * Possible discharge on Thursday or Thursday #2 diabetes * Accuchecks: Sugar this morning was 70; and remained asymptomatic possibly due to delay in eating breakfast * Insulin Levemir 8 units twice a day subcutaneous * Insulin aspart 3 times a day before meals sliding scale #3 Graves' disease * Methimazone decreased to 10mg PO Daily * Obtain TSH/T4 in 2-3 weeks time * Follow endocrinology recommendation #4 chronic pain syndrome * Lyrica 75mg PO Daily * Continue methadone #5 anxiety and depression * Alprazolam increased to home dose of 1mg PO TID Diet - Consistent Carb DVT PPx - lovenox Code status - FULL CODE Problem List: 1. COPD 2. Graves' disease 3. Full code status 4. Diarrhea 5. COPD exacerbation 6. Respiratory acidosis 7. Chronic pain 8. Methadone use 9. Hyperthyroidism Pain Ratin Pain Location: Lower back Pain Goal: Pain 4 or less Pain Plan: Continue methadone Lyrica Tomorrow's Labs & Rationales: CBC BEP Pneumonia DVT/Prophylaxis: pharmacological Consulting Request: Consulting Specialty: Pulmonary Disease
--- NOTE | 2016-09-15 12:34 | PN- Pulmonary ---
Subjective HPI/Critical Care Issues: pt seen and examined transferred out of icu some diarrhea that is chronic overall feeling better feels hungry no n/v/d/c no cp Objective Current Medications: Current Medications Sig/Cathy Start time Last Medication Dose Route Stop Time Status Admin Acetaminophen 650 MG Q6P PRN 09/13 1515 AC 09/14 PO 0739 Albuterol Sulfate 3 ML TID 09/09 2200 AC 09/15 INH 0803 Alprazolam 1 MG TID PRN 09/14 1202 AC 09/15 PO 09/20 0959 0505 Aspirin Buffered 81 MG DAILY 09/10 1000 AC 09/15 PO 0928 Budesonide/ 2 PUF BID 09/09 2200 AC 09/15 Formoterol Fumarate INH 0928 Cholecalciferol 1,000 IU DAILY 09/14 1348 AC 09/15 PO 0929 Enoxaparin Sodium 40 MG DAILY 09/10 1000 AC SC Glycerin/Mineral Oil 1 KRISS TID PRN 09/12 1000 AC TOP Hydroxyzine HCl 10 MG TID PRN 09/14 0915 AC 09/14 PO 1555 Ibuprofen 400 MG Q6P PRN 09/14 1200 AC 09/15 PO 0936 Insulin Aspart 0 TIDAC/HS 09/10 1200 AC 09/15 SC 1200 Insulin Detemir 8 UNITS BID 09/14 1000 AC 09/15 SC 0930 Loperamide HCl 2 MG Q6P PRN 09/15 1045 DC PO Methadone HCl 100 MG 0500 09/10 0500 AC 09/15 PO 0506 Methimazole 10 MG DAILY 09/14 1000 AC 09/15 PO 0929 Nicotine 14 MG DAILY 09/10 1000 AC 09/15 TOP 0929 Prednisone 10 MG DAILY 09/23 1000 AC PO 09/24 1001 Prednisone 20 MG DAILY 09/21 1000 AC PO 09/22 1001 Prednisone 30 MG DAILY 09/19 1000 AC PO 09/20 1001 Prednisone 40 MG DAILY 09/17 1000 AC PO 09/18 1001 Prednisone 50 MG DAILY 09/15 1000 AC 09/15 PO 09/16 1001 0929 Pregabalin 75 MG BID 09/09 2200 AC 09/15 PO 0929 Trazodone HCl 50 MG QPM PRN 09/09 2015 AC PO Vital Signs & I&O Last 24 Hrs of Vitals and I&O: Vital Signs Date Time Temp Pulse Resp B/P Pulse O2 O2 Flow FiO2 Ox Delivery Rate 09/15 915 98.2 94 18 140/74 99 Nasal 4.0L Cannula 09/15 0703 Nasal 4.0L Cannula 09/15 799 94 Nasal 4.0L Cannula 09/15 0010 97.9 89 20 157/76 98 Nasal 4.0L Cannula 09/15 0000 Nasal 4.0L Cannula 09/14 2135 Nasal 4.0L Cannula 09/14 1600 95 Nasal 4.0L Cannula 09/14 1558 97.5 93 21 162/78 95 Nasal 4.0L Cannula Intake & Output 09/15 1600 09/15 0000 Intake Total 700 Output Total Balance 700 Intake, Oral 700 Exam Other Physical Findings: General - Alert, awake and oriented HEENT - normocephalic, atraumatic Cardiovascular - S1, S2 Lungs - bilateral wheezing inspiratory and expiratory Abdomen - soft, bowel sounds positive, no tenderness Extremities - trace edema Results Last 24 Hrs of Lab Results: Laboratory Tests 09/15/16 0650: Anion Gap 8, Estimated GFR > 60, Glucose 198 H, Calcium 7.9 L, Phosphorus 4.1, Magnesium 1.9, Total Bilirubin 0.3, AST 15, ALT 29, Albumin 3.1 L, CBC w Diff MAN DIFF ORDERED, RBC 3.31 L, MCV 87.1, MCH 27.4, RDW 17.7 H, MPV 8.8, Segmented Neutrophils 75, Lymphocytes 21, Monocytes 4, Platelet Estimate VERIFIED BY SMEAR, Normocytic RBCs VERIFIED, Normochromic RBCs VERIFIED, PUBS MCHC 31.5 L Impression/Plan Impression/Plan Impression/Plan: Impression 55-year-old woman with acute hypercarbic and hypoxemic respiratory failure likely secondary to COPD exacerbation, opiate dependence on methadone program. History of diabetes and atrial fibrillation that has been intermittent. Plan - prednisone taper by 10mg every 2 days - Off antibiotics - Monitor fingersticks - Continues to follow cardiology and endocrinology recommendations - Continue methadone - TRC nebs - DVT prophylaxis at all times D/C planning
[2016-09-15 16:09] VITALS: BP 158/64
--- NOTE | 2016-09-15 20:57 | NUR ---
JAMIL 459. SENT TEXT PAGE TO OUTPATIENT PHYSICAL THERAPIST #[id number].
--- NOTE | 2016-09-15 22:51 | NUR ---
FINGERSTICK 403. SENT TEXT PAGE TO [employer] #136.
[2016-09-16 00:15] VITALS: BP 160/68
--- NOTE | 2016-09-16 01:03 | NUR ---
JAMIL 267. SPOKE TO [employer] #[id number] AND WE WILL CONTINUE TO MONITOR PT AT THIS TIME.
--- NOTE | 2016-09-16 07:35 | PN- Housestaff ---
ISABELLE BUSTAMANTE 09/16/16 0734: Subjective Follow-up For: COPD exacerbation IDDM and elevated blood suger Grave's disease chronic pain syndrome Complaints: patient is complaining of low quality of food Subjective: And was visited and examined this morning. When I saw the patient she is in no acute distress ambulating with no assistance comfortably on oxygen 2 L(baseline) . Patient does not have any physical complaint except for intermittent diarrhea ( chronic). C. difficile samples were sent(follow). Vital signs are stable patient denies any chest pain, palpitation, lightheadedness, fever, nausea, vomiting. During our interview she insisted that she would be stable to be discharged on Thursday?!! Review of Systems Constitutional: Denies: chills, diaphoresis, fever, malaise, weakness, unexplained weight loss. EENTM: Denies: blurred vision, double vision, visual changes, eye pain, eye drainage, eye tearing, icterus, ear discharge, ear pain, ear redness, hearing changes, nasal congestion, epistaxis, nasal pain, throat pain, throat swelling, mouth pain, tooth pain. Cardiovascular: Denies: chest pain, edema, orthopena, palpitations, peripheral edema, syncope. Respiratory: Denies: cough, hemoptysis, orthopnea, short of breath, sputum production, stridor, wheezing. Gastrointestinal: Denies: abdominal pain, bloating, constipation, diarrhea, distention, bowel incontinence, melena, nausea, bloody stool, changes in stool, vomiting, steatorrhea. Genitourinary: Denies: discharge, dysuria, frequency, hematuria, hesitation, nocturia, pain, urgency. Musculoskeletal: Denies: back pain, gout, joint pain, joint swelling, muscle pain, muscle stiffness, neck pain. Objective Last 24 Hrs of Vital Signs/I&O Vital Signs Date Time Temp Pulse Resp B/P Pulse O2 O2 Flow FiO2 Ox Delivery Rate 09/16 820 93 Nasal 4.0L Cannula 09/16 820 97.8 87 20 130/74 93 Nasal 4.0L Cannula 09/16 799 95 Nasal 4.0L Cannula 09/16 0015 98.3 84 20 160/68 97 Nasal 4.0L Cannula 09/16 0000 Nasal 4.0L Cannula 09/15 2039 98 Nasal 4.0L Cannula 09/15 1609 Nasal 4.0L Cannula 09/15 1609 98.4 89 18 158/64 96 09/15 1534 94 Nasal 4.0L Cannula Intake & Output 09/16 1600 09/16 0800 09/16 0000 Intake Total 600 1200 Output Total Balance 600 1200 Intake, Oral 600 1200 Number 3 1 Bowel Movements Physical Exam General Appearance: Oriented X3, Cooperative, No Acute Distress, in no acute distress walking comfortably with oxygen tank Skin: No Rashes, No Breakdown, No Significant Lesion HEENT: Atraumatic, PERRLA, EOMI, Mucous Membr. moist/pink Neck: Supple, No JVD, No thryomegaly, +2 Carotid Pulse wo Bruit, No LAD Cardiovascular: Normal S1, Normal S2, No Murmurs Lungs: Clear to Auscultation, scattered wheeze Assessment/Plan Assessment: 55-year-old woman with past medical history of severe COPD on 4 L of oxygen frequent admissions for COPD exacerbation previously required ICU admission for COPD exacerbation due to hypoxic respiratory failure but has not been intubated for COPD exacerbation, insulin-dependent diabetes mellitus, gastroparesis, anxiety and depression, paroxysmal atrial fibrillation not on anticoagulation, Graves' disease, chronic pain syndrome on methadone program, osteoarthritis, is admitted for respiratory acidosis(hypoxic and hypercapnic respiratory failure due to COPD exacerbation and or pneumonia). Problem list: -Acute on chronic hypercarbic respiratory failure -Graves' disease, on methimazole -Chronic pain syndrome, on methadone plan #1 hypoxic hypercapnic respiratory failure-improving * Patient is on 4 L of oxygen; continue oxygen therapy goals PaO2 above 55 or O2 saturation above 88% * Severe COPD with evidence of right ventricular and failure and pulmonary hypertension-patient needs to be on combination therapy of inhaled glucocorticoids lama and labral and short acting with her daughter anergic agonist for symptomatic treatment * Continue prednisone taper * Albuterol (Proventil) 3 mL 3 times a day inhaler * Combination inhaled glucocorticoids and LABA: Continue with budenoside/ Formoterol 2 puffs 3 times a day * Possible benefit from long-acting anticholinergic inhalers * Follow pulmonology recommendations * Possible discharge on Thursday or Thursday #2 diabetes * Accuchecks: Sugar this morning was 70; and remained asymptomatic possibly due to delay in eating breakfast * Insulin Levemir 9 units twice a day subcutaneous * Insulin aspart 3 times a day before meals sliding scale #3 Graves' disease * Methimazone decreased to 10mg PO Daily * Obtain TSH/T4 in 2-3 weeks time * Follow endocrinology recommendation #4 chronic pain syndrome * Lyrica 75mg PO Daily * Continue methadone #5 anxiety and depression * Alprazolam increased to home dose of 1mg PO TID Diet - Consistent Carb DVT PPx - lovenox Code status - FULL CODE Problem List: 1. COPD 2. Graves' disease 3. Methadone dependence Pain Ratin Pain Location: Back and knees Pain Goal: Pain 4 or less Pain Plan: Methadone Lyrica Tomorrow's Labs & Rationales: none Consulting Request: Consulting Specialty: Pulmonary Disease Discharge Plan Discharge Disposition: home Stable for Discharge? Yes Anticipated Discharge (Day): tomorrow LEXY BAUM,[facility] 09/16/16 1339: Attending MD Review Statement Attending Statement Attending MD Statement: examined this patient, discuss w/resident/PA/SPECIAL INVESTIGATION UNIT INVESTIGATOR, agreed w/resident/PA/SPECIAL INVESTIGATION UNIT INVESTIGATOR, reviewed EMR data (avail), discussed with nursing, discussed with case mgmt, amended to note Attending Assessment/Plan: Patient seen and examined, still feels that she's not back to baseline. Still feeling dyspnea on exertion. Does not want to leave today at all. She had diarrhea therefore C. difficile was sent which came out negative. Her blood sugars were slightly high therefore her insulin regimen has been adjusted by endocrinology. Vital Signs Date Time Temp Pulse Resp B/P Pulse O2 O2 Flow FiO2 Ox Delivery Rate 09/16 08 93 Nasal 4.0L Cannula 09/16 08 97.8 87 20 130/74 93 Nasal 4.0L Cannula 09/16 0800 95 Nasal 4.0L Cannula 09/16 0015 98.3 84 20 160/68 97 Nasal 4.0L Cannula 09/16 0000 Nasal 4.0L Cannula 09/15 2040 98 Nasal 4.0L Cannula 09/15 1609 Nasal 4.0L Cannula 09/15 1609 98.4 89 18 158/64 96 09/15 1534 94 Nasal 4.0L Cannula on exam; aox3, nad. cv; s1, s2, rrr. resp; clear abd; soft, nt, bs+ ext; no edema. Laboratory Tests 09/16 716 Chemistry Sodium (137 - 145 mmol/L) 134 L Potassium (3.5 - 5.1 mmol/L) 4.9 Chloride (98 - 107 mmol/L) 89 L Carbon Dioxide (22 - 30 mmol/L) 38 H Anion Gap (5 - 16) 7 BUN (7 - 17 mg/dL) 30 H Creatinine (0.5 - 1.0 mg/dL) 0.9 Estimated GFR (>60 ml/min) > 60 BUN/Creatinine Ratio (7 - 25 %) 33.3 H A/P; She is a 55-year-old female was admitted with acute on chronic aspirin failure and acute bronchitis. Prednisone taper per pulmonology. Continue TRC nebs and try to taper O2 as she can tolerate. Follow-up endocrinology recommendations. Insulin has been adjusted. C. difficile came out negative. DVT prophylaxis: Lovenox. Patient is otherwise doing overall better and likely can be discharged home tomorrow.
[2016-09-16 08:21] VITALS: BP 130/74
--- NOTE | 2016-09-16 09:34 | PN- Diabetes ---
Assessment/Plan Assessment: 55 y/o female, Hx of smoking, COPD, brittle diabetes type 1 and Graves' disease, was admitted for respiratory distress due to COPD exacerbation along with significantly elevated BNP of 7870. She was on BIPAP and was put on Solumedrol 40 mg every 6 hours initially. Solumedrol was discontinued on 09/12/2016. She is on prednisone taper. She is on prednisone 50 mg today. Levemir was incresaed to 8 units twice a day. Novolog coverage before meals and Novolog coverage at bedtime was adjusted on 09/12/2016. Her FSGs were 70, 387, 303 , 459, 453, 423, 267, 282 and 298. With regards to Graves' disease, she is on Methimazole 15 mg daily. On 09/09/2016, TSH < 0.015 and free T4 1.59. On 09/14/2016, her TSH is 0.030, free T4 0.79. Methimazole was decreased to 10 mg daily. Plan: 1. increase Levemir to 9 units twice a day; 2. increase Novolog coverage before meals by one unit; FSG 100-180, 2 unit 181-250, 3 units 251-320, 4 units 321-360, 5 units 361-450, 6 units > 450, 7 units 3. adjust Novolog coverage at bedtime; FSG < 320, no coverage 321-360, 2 units 361-450, 3 units > 450,4 units 4. monitor FSGs. will follow. Subjective Subjective: Her glucose level is not controlled. Objective Last 24 Hrs of Vital Signs/I&O Vital Signs Date Time Temp Pulse Resp B/P Pulse O2 O2 Flow FiO2 Ox Delivery Rate 09/16 820 93 Nasal 4.0L Cannula 09/16 820 97.8 87 20 130/74 93 Nasal 4.0L Cannula 09/16 799 95 Nasal 4.0L Cannula 09/16 0015 98.3 84 20 160/68 97 Nasal 4.0L Cannula 09/16 Nasal 4.0L Cannula 09/15 2039 98 Nasal 4.0L Cannula 09/15 1609 Nasal 4.0L Cannula 09/15 1609 98.4 89 18 158/64 96 09/15 1534 94 Nasal 4.0L Cannula Intake & Output 09/16 1600 09/16 0800 01/10 0000 Intake Total 600 1200 Output Total Balance 600 1200 Intake, Oral 600 1200 Number 3 1 Bowel Movements
--- NOTE | 2016-09-16 12:08 | PN- Pulmonary ---
Subjective HPI/Critical Care Issues: Patient seen and examined this morning. Her shortness of breath has improved. She intermittently takes her oxygen off. She is consistently having diarrhea and a C. difficile is pending. Objective Current Medications: Current Medications Sig/Cathy Start time Last Medication Dose Route Stop Time Status Admin Acetaminophen 650 MG Q6P PRN 09/13 1515 AC 09/14 PO 0739 Albuterol Sulfate 3 ML TID 09/09 2200 AC 09/16 INH 1203 Alprazolam 1 MG TID PRN 09/14 1202 AC 09/16 PO 09/20 0959 0547 Aspirin Buffered 81 MG DAILY 09/10 1000 AC 09/16 PO 0913 Budesonide/ 2 PUF BID 09/09 2200 AC 09/16 Formoterol Fumarate INH 0912 Cholecalciferol 1,000 IU DAILY 09/14 1348 AC 09/16 PO 0913 Enoxaparin Sodium 40 MG DAILY 09/10 1000 AC SC Glycerin/Mineral Oil 1 KRISS TID PRN 09/12 1000 AC TOP Hydroxyzine HCl 10 MG TID PRN 09/14 0915 AC 09/16 PO 0105 Ibuprofen 400 MG Q6P PRN 09/14 1200 AC 09/15 PO 0936 Insulin Aspart 3 UNITS ONCE ONE 09/15 2300 DC 09/15 SC 09/15 2301 2306 Insulin Aspart 0 TIDAC/HS 09/10 1200 AC 09/16 SC 0741 Insulin Detemir 9 UNITS BID 09/16 1000 AC 09/16 SC 0912 Insulin Detemir 8 UNITS BID 09/14 1000 DC 09/15 SC 2101 Methadone HCl 100 MG 0500 09/10 0500 AC 09/16 PO 0547 Methimazole 10 MG DAILY 09/14 1000 AC 09/16 PO 0913 Nicotine 14 MG DAILY 09/10 1000 AC 09/16 TOP 0912 Patient Medication 1 ED .STK-MED ONE 09/15 1348 DC Teaching ED 09/15 1349 Prednisone 10 MG DAILY 09/23 1000 AC PO 09/24 1001 Prednisone 20 MG DAILY 09/21 1000 AC PO 09/22 1001 Prednisone 30 MG DAILY 09/19 1000 AC PO 09/20 1001 Prednisone 40 MG DAILY 09/17 1000 AC PO 09/18 1001 Prednisone 50 MG DAILY 09/15 1000 DC 09/16 PO 09/16 1001 0913 Pregabalin 75 MG BID 09/09 2199 AC 09/16 PO 09 Trazodone HCl 50 MG QPM PRN 09/09 2014 AC PO Vital Signs & I&O Last 24 Hrs of Vitals and I&O: Vital Signs Date Time Temp Pulse Resp B/P Pulse O2 O2 Flow FiO2 Ox Delivery Rate 09/16 820 93 Nasal 4.0L Cannula 09/16 820 97.8 87 20 130/74 93 Nasal 4.0L Cannula 09/16 08 95 Nasal 4.0L Cannula 09/16 0015 98.3 84 20 160/68 97 Nasal 4.0L Cannula 09/16 0000 Nasal 4.0L Cannula 09/15 2040 98 Nasal 4.0L Cannula 09/15 1609 Nasal 4.0L Cannula 09/15 1609 98.4 89 18 158/64 96 09/15 1534 94 Nasal 4.0L Cannula Intake & Output 09/16 1600 09/16 0800 09/16 0000 Intake Total 600 1200 Output Total Balance 600 1200 Intake, Oral 600 1200 Number 3 1 Bowel Movements Exam Other Physical Findings: General - Alert, awake and oriented HEENT - normocephalic, atraumatic Cardiovascular - S1, S2 Lungs - bilateral wheezing inspiratory and expiratory Abdomen - soft, bowel sounds positive, no tenderness Extremities - trace edema Results Last 24 Hrs of Lab Results: Laboratory Tests 09/16/16 0717: Anion Gap 7, Estimated GFR > 60, BUN/Creatinine Ratio 33.3 H Impression/Plan Impression/Plan Impression/Plan: Impression 55-year-old woman with acute hypercarbic and hypoxemic respiratory failure likely secondary to COPD exacerbation, opiate dependence on methadone program. History of diabetes and atrial fibrillation that has been intermittent. Plan - c.diff pending - prednisone taper by 10mg every 2 days - Off antibiotics - Monitor fingersticks - Continues to follow cardiology and endocrinology recommendations - Continue methadone - TRC nebs - DVT prophylaxis at all times D/C planning
[2016-09-16 16:22] VITALS: BP 158/82
--- NOTE | 2016-09-16 22:46 | NUR ---
FINGERSTICK 399. [employer] #[id number]. CONTINUE TO MONITOR.
[2016-09-16 23:55] VITALS: BP 158/74
[2016-09-17 07:15] VITALS: BP 142/86
--- NOTE | 2016-09-17 07:20 | PN- Housestaff ---
ISABELLE BUSTAMANTE 09/17/16 0718: Subjective Follow-up For: COPD execerbation Chronic respiratory failure IDDM w/ uncontrolled BS Grave's disease Complaints: complains that she wants to stay Subjective: Patient was visited and examined this morning. Vs are stable. She is ambulating with O2 tank and refused TRC last night, no cp or palpitation. She is not agreable with the discharge plan nor she is willing to have a conversation with any of the medical staff. Review of Systems Constitutional: Denies: chills, diaphoresis, fever, malaise, weakness, unexplained weight loss. EENTM: Denies: blurred vision, double vision, visual changes, eye pain, eye drainage, eye tearing, icterus, ear discharge, ear pain, ear redness, hearing changes, nasal congestion, epistaxis, nasal pain, throat pain, throat swelling, mouth pain, tooth pain. Respiratory: Denies: cough, hemoptysis, orthopnea, short of breath, sputum production, stridor, wheezing. Gastrointestinal: Denies: abdominal pain, bloating, constipation, diarrhea, distention, bowel incontinence, melena, nausea, bloody stool, changes in stool, vomiting, steatorrhea. Genitourinary: Denies: discharge, dysuria, frequency, hematuria, hesitation, nocturia, pain, urgency. Objective Last 24 Hrs of Vital Signs/I&O Vital Signs Date Time Temp Pulse Resp B/P Pulse O2 O2 Flow FiO2 Ox Delivery Rate 09/17 0715 97.8 76 20 142/86 96 Nasal 4.0L Cannula 09/17 0544 98 Nasal 4.0L Cannula 09/17 0000 Nasal 4.0L Cannula 09/16 2355 98.3 90 20 158/74 92 Nasal 4.0L Cannula 09/16 2155 97 Nasal 4.0L Cannula 09/16 1622 98.0 91 20 158/82 93 Nasal 4.0L Cannula 09/16 1600 94 Nasal 4.0L Cannula Intake & Output 09/17 1600 09/17 0800 09/17 0000 Intake Total 600 1400 Output Total Balance 600 1400 Intake, Oral 600 1400 Number 1 1 Bowel Movements Physical Exam General Appearance: Alert, Oriented X3, Cooperative, No Acute Distress Skin: No Rashes, No Breakdown, No Significant Lesion HEENT: Atraumatic, PERRLA, EOMI, Mucous Membr. moist/pink Neck: Supple, No JVD, No thryomegaly, +2 Carotid Pulse wo Bruit, No LAD Lymphatic: Axillary nl, Cervical nl Cardiovascular: Normal S1 Lungs: decreased air movement, scattered wheeze Abdomen: Soft Current Medications: Current Medications Sig/Cathy Start time Last Medication Dose Route Stop Time Status Admin Acetaminophen 650 MG Q6P PRN 09/13 1515 AC 09/14 PO 0739 Albuterol Sulfate 3 ML TID 09/09 2200 AC 09/17 INH 0534 Alprazolam 1 MG TID PRN 09/14 1202 AC 09/17 PO 09/20 0959 0524 Aspirin Buffered 81 MG DAILY 09/10 1000 AC 09/17 PO 0851 Budesonide/ 2 PUF BID 09/09 2200 AC 09/17 Formoterol Fumarate INH 0852 Cholecalciferol 1,000 IU DAILY 09/14 1348 AC 09/17 PO 0852 Enoxaparin Sodium 40 MG DAILY 09/10 1000 AC SC Glycerin/Mineral Oil 1 KRISS TID PRN 09/12 1000 AC TOP Hydroxyzine HCl 10 MG TID PRN 09/14 0915 AC 09/16 PO 1616 Ibuprofen 400 MG Q6P PRN 09/14 1200 AC 09/16 PO 1617 Insulin Aspart 0 TIDAC/HS 09/10 1200 AC 09/17 SC 0910 Insulin Detemir 10 UNITS BID 09/17 1000 AC 09/17 SC 0910 Insulin Detemir 9 UNITS BID 09/16 1000 DC 09/16 SC 2231 Loperamide HCl 2 MG Q6P PRN 09/16 1430 AC 09/17 PO 0516 Methadone HCl 100 MG 0500 09/10 0500 AC 09/17 PO 0516 Methimazole 10 MG DAILY 09/14 1000 AC 09/17 PO 0852 Nicotine 14 MG DAILY 09/10 1000 AC 09/17 TOP 0852 Prednisone 10 MG DAILY 09/23 1000 AC PO 09/24 1001 Prednisone 20 MG DAILY 09/21 1000 AC PO 09/22 1001 Prednisone 30 MG DAILY 09/19 1000 AC PO 09/20 1001 Prednisone 40 MG DAILY 09/17 1000 AC 09/17 PO 09/18 1001 0851 Prednisone 50 MG DAILY 09/15 1000 DC 09/16 PO 09/16 1001 0913 Pregabalin 75 MG BID 09/09 2200 AC 09/17 PO 0852 Trazodone HCl 50 MG QPM PRN 09/09 2014 PO Assessment/Plan Assessment: 55-year-old woman with past medical history of severe COPD on 4 L of oxygen frequent admissions for COPD exacerbation previously required ICU admission for COPD exacerbation due to hypoxic respiratory failure but has not been intubated for COPD exacerbation, insulin-dependent diabetes mellitus, gastroparesis, anxiety and depression, paroxysmal atrial fibrillation not on anticoagulation, Graves' disease, chronic pain syndrome on methadone program, osteoarthritis, is admitted for respiratory acidosis(hypoxic and hypercapnic respiratory failure due to COPD exacerbation and or pneumonia). Problem list: -Acute on chronic hypercarbic respiratory failure -Graves' disease, on methimazole -Chronic pain syndrome, on methadone plan #1 hypoxic hypercapnic respiratory failure-improving * Patient is on 4 L of oxygen; continue oxygen therapy goals PaO2 above 55 or O2 saturation above 88% * Severe COPD with evidence of right ventricular and failure and pulmonary hypertension-patient needs to be on combination therapy of inhaled glucocorticoids lama and labral and short acting with her daughter anergic agonist for symptomatic treatment * Continue prednisone taper * Albuterol (Proventil) 3 mL 3 times a day inhaler * Combination inhaled glucocorticoids and LABA: Continue with budenoside/ Formoterol 2 puffs 3 times a day * discharge today on prednisone siva #2 diabetes * Accuchecks: Sugar this morning was 70; and remained asymptomatic possibly due to delay in eating breakfast * discharge on Glargine and SS premeal * follow up Dr. Lynn as an out patient #3 Graves' disease * Methimazone decreased to 10mg PO Daily * Obtain TSH/T4 in 2-3 weeks time-prescription was given * Follow endocrinology recommendation #4 chronic pain syndrome * Lyrica 75mg PO Daily * Continue methadone #5 anxiety and depression * Alprazolam increased to home dose of 1mg PO TID Diet - Consistent Carb DVT PPx - lovenox Code status - FULL CODE Problem List: 1. COPD 2. Respiratory acidosis 3. COPD exacerbation 4. Acute kidney injury 5. Chronic pain Pain Ratin Pain Location: back Pain Goal: Pain 4 or less Pain Plan: Methadone Lyrica Tomorrow's Labs & Rationales: none Consulting Request: Consulting Specialty: Pulmonary Disease Discharge Plan Discharge Disposition: home Stable for Discharge? Yes Anticipated Discharge (Day): today LEXY BAUM,[facility] 09/17/16 1146: Attending MD Review Statement Attending Statement Attending MD Statement: examined this patient, discuss w/resident/PA/FINISHER TAILOR APPRENTICE, agreed w/resident/PA/FINISHER TAILOR APPRENTICE, reviewed EMR data (avail), discussed with nursing, discussed with case mgmt, reviewed images, amended to note Attending Assessment/Plan: Patient seen and examined, screams and yells. She just wanted to speak with Jaclyn Marinelli,. She is at her baseline O2. She is on oral prednisosone. She is medically stable for discharge. We asked Dr. Anaya to please come in and talk to the patient. He was kind enough to come in talk to the patient. Patient finally agrees to go home today. She will require nebulizer machine as well as albuterol inhalation solution. All new prescriptions will be given. Her insulin regimen has also been changed as recommended by Dr. Herrera. Patient will be discharged home today.
--- NOTE | 2016-09-17 08:20 | PN- Diabetes ---
Assessment/Plan Assessment: 55 y/o female, Hx of smoking, COPD, brittle diabetes type 1 and Graves' disease, was admitted for respiratory distress due to COPD exacerbation along with significantly elevated BNP of 7870. She was on BIPAP and was put on Solumedrol 40 mg every 6 hours initially. Solumedrol was discontinued on 09/12/2016. She is on prednisone taper. She is on prednisone 40 mg today. Levemir was incresaed to 9 units twice a day. Novolog coverage before meals and Novolog coverage at bedtime was adjusted again on 09/16/2016. Her FSGs were 298, 287, 330, 399 and 256. With regards to Graves' disease, she is on Methimazole 15 mg daily. On 09/09/2016, TSH < 0.015 and free T4 1.59. On 09/14/2016, her TSH is 0.030, free T4 0.79. Methimazole was decreased to 10 mg daily. Plan: 1. DM type 1: ---increase Levemir to 10 units twice a day; ---continue the current Novolog coverage before meals; ---continue the current Novolog coverage at bedtime. ---monitor FSGs. ---if she is medically stable for discharge, the discharge plan for DM Toujeo 10 units tonight as she will receive Levemir 10 units in hospital in the morning Toujeo 20 units daily starting tomorrow Humalog before meals and Humalog at bedtime(same scales for Novolog as inpatient) monitor FSGs at least x 4 times a day f/u in office after discharge. 2. Graves' disease ---continue Methimazole 10 mg daily for now; ---monitor TSH, free T4 in 2 weeks (please give patient a lab slip, Thanks) ---f/u in office after discharge. Subjective Subjective: She feels better and she probably will go home today. Objective Last 24 Hrs of Vital Signs/I&O Vital Signs Date Time Temp Pulse Resp B/P Pulse O2 O2 Flow FiO2 Ox Delivery Rate 09/17 0715 97.8 76 20 142/86 96 Nasal 4.0L Cannula 09/17 0544 98 Nasal 4.0L Cannula 09/17 0000 Nasal 4.0L Cannula 09/16 2355 98.3 90 20 158/74 92 Nasal 4.0L Cannula 09/16 2154 97 Nasal 4.0L Cannula 09/16 162 98.0 91 20 158/82 93 Nasal 4.0L Cannula 09/16 1600 94 Nasal 4.0L Cannula 09/16 820 93 Nasal 4.0L Cannula 09/16 820 97.8 87 20 130/74 93 Nasal 4.0L Cannula Intake & Output 09/17 1600 09/17 0800 09/17 0000 Intake Total 600 1400 Output Total Balance 600 1400 Intake, Oral 600 1400 Number 1 1 Bowel Movements
[2016-09-17] MEDS ORDERED: PREDNISONE10 M2 PO ×2 (08:34→09:12)
[2016-09-17] MEDS ORDERED: NOVOLOG100 UNIT/2 SC (08:44)
[2016-09-17] MEDS ORDERED: METHIMAZOLE10 M1 PO (08:45)
--- NOTE | 2016-09-17 09:16 | Patient Discharge Instructions ---
Discharge Instructions General Discharge Information You were seen/treated for: Acute on chronic hypoxic hypercapnic respiratory failure Special Instructions: 1) please take 10 u of long acting insuline (Glargine) tonight and increase the dose to 20 U per day from 09/18/2016 2) please follow up with Dr. Reynolds/ Dr. Lynn as sson as possible 3) please follow up with your PCP Acute Coronary Syndrome Inclusion Criteria At DC or during hospital stay patient has or had the following: ACS DIAGNOSIS No Discharge Core Measures Meds if any: Prescribed or Continued at Discharge Meds if any: NOT Prescribed or Continued at Discharge Congestive Heart Failure Inclusion Criteria At DC or during hospital stay patient has or had the following: CHF DIAGNOSIS No Discharge Core Measures Meds if any: Prescribed or Continued at Discharge Meds if any: NOT Prescribed or Continued at Discharge Cerebrovascular accident Inclusion Criteria At DC or during hospital stay patient has or had the following: CVA/TIA Diagnosis No Discharge Core Measures Meds if any: Prescribed or Continued at Discharge Meds if any: NOT Prescribed or Continued at Discharge Venous thromboembolism Inclusion Criteria VTE Diagnosis No VTE Type NONE VTE Confirmed by (Test) NONE Discharge Core Measures - Per Current guidelines, there needs to be overlap - treatment for the first 5 days of Warfarin therapy. - If discharged on Warfarin prior to 5 days of - overlap therapy, the patient will need to be - assessed for post discharge needs including - *Post discharge parental anticoagulation - *Warfarin and/or parental anticoagulation education - *Follow up date to check INR post discharge At least 5 days overlap therapy as Inpatient No Meds if any: Prescribed or Continued at Discharge Note: Overlap Therapy is Warfarin and Anticoagulant Meds if any: NOT Prescribed or Continued at Discharge
[2016-09-17] MEDS ORDERED: ALBUTEROL2.5 MG/3 M INH (09:45)
--- NOTE | 2016-09-17 10:43 | Discharge Summary ---
Visit Information Visit Dates Admission Date: 09/09/16 Discharge Date: 09/17/16 Hospital Course Course Attending Physician: CHRISTIANO PUGH MD Primary Care Physician: JANET CEVALLOS MD Consulting Request: Consulting Specialty: Pulmonary Disease Hospital Course: Denis, 55-year-old woman with past medical history significant for COPD and chronic hypoxic respiratory failure on 4 L of oxygen at home, current heavy smoker, and insulin-dependent DM, and Graves' disease, paroxysmal atrial fibrillation not on anti coagulation, and chronic pain syndrome on methadone, osteoarthritis, and recent admission at [facility] due to commuted right mandibular fracture due to fall during which patient was transferred to [place]. She was admitted and ICU after she was presented with worsening cough and sputum production and diminishing exercise tolerance and worsening dyspnea on exertion. Initially patient was febrile. Temperature max of 100 03 poor oral intake for 2-3 days and intermittent confusion and dry heaving. Initial vital signs in the emergency room was temperature of 97.6, pulse 94, respiratory rate 20, blood pressure 196/85 and oxygen saturation 85% on 4 L of oxygen. ABG was done and patient was found to be in respiratory acidosis secondary to hypercapnic hypoxic respiratory failure due to her altered mental status patient was require BiPAP. Her respiratory acidosis did not respond to BiPAP therapy and patient required intensive care unit admission. Active issues during this admission: #1 acute on chronic hypercapnic, hypoxic respiratory failure/acidosis started on was started on BiPAP treatment which did not completely resolve the respiratory acidosis. As a result patient was indicated to be admitted in intensive care unit. Her initial chest x-ray was not indicative of any change compatible with acute pneumonia. She was started on IV Solu-Medrol and patient was kept off of antibiotics. Due to improvement of her respiratory status patient was downgraded from ICU to general medical floor to plan for continuation of her TRC. She was placed on slowly taper off by mouth prednisone and was discharged home with prescription for albuterol nebulizer and prednisone taper instruction was instruction to follow-up with her [employer] worker Dr. Anaya. #2 diabetes mellitus and Graves' disease Patient's sliding scale was adjusted and updated by hvac services professional Dr. cruz and patient was discharged home with instruction for new sliding scale. Patient's Methimazole dose was changed from 50 mg daily to 10 mg daily and patient was discharged home with a prescription to check TSH and free T4 within 2-3 weeks and follow-up with Dr. cruz as an outpatient. #3 chronic pain syndrome During this admission because continue with her methadone and Lyrica for pain management. No change was applied to her pain management regimen. #4 complain of chronic/worsening diarrhea C. Difficile toxin sample was sent and it was negative patient was a started on loperamide-will upon discharge. Allergies: Coded Allergies: No Known Allergies (05/16/16) PER PT VERBALLY VERIFIED TAKES 81MG ASA Disposition Summary Disposition Principal Diagnosis: Acute on chronic hypoxic hypercapnic respiratory failure with respiratory acidosis Additional Diagnosis: Uncontrolled blood sugar in the setting of insulin-dependent diabetes mellitus Graves' disease Chronic pain syndrome Discharge Disposition: home or self care Discharge Instructions General Discharge Information Code Status: Full Code Patient's Diet: Heart healthy diet Patient's Activity: As tolerated Follow-Up Instructions/Appts: Follow-up with Dr. Anaya as an outpatient Follow with Dr. Ivy as an outpatient Follow-up with Dr. Armenta as an outpatient within 2-3 weeks with the results of the thyroid function tests Medications at Discharge Discharge Medications: Continue taking these medications: Alprazolam (Xanax) 1 MG TABLET 1 Tablet ORAL THREE TIMES A DAY NEEDED as needed for ANXIETY Comments: Last Taken: 09/17/16 Time: 5:30 AM Methadone HCl (Dolophine HCl) 10 MG TABLET 10 Tablet ORAL 0500 Days = 30 Comments: Last Taken: 09/17/16 Time: 5:15 AM Ergocalciferol (Vitamin D2) (Vitamin D2) 50,000 UNIT CAPSULE 1 Capsule ORAL EVERY THURSDAY Comments: NOT TAKEN WHILE IN HOSPITAL Albuterol Sulfate (Proair Hfa) 8.5 GM HFA.AER.AD 2 Puff Inhale through mouth EVERY 4-6 HOURS NEEDED as needed for BREATHING Comments: NOT TAKEN WHILE IN HOSPITAL Budesonide/Formoterol Fumarate (Symbicort 160-4.5 Mcg Inhaler) 10.2 GM HFA.AER.AD 2 Puff Inhale through mouth TWICE DAILY Comments: Last Taken: 09/17/16 Time: 9:00 AM Insulin Glargine,Hum.rec.anlog (Toujeo Solostar) 300 UNIT/1 ML INSULN.PEN 20 Units Inject into fatty tissue 0900 Comments: please take 10 units on 09/17/2016 (tonight) start taking 20 U at night from 09/18/2016 Last Taken: 09/17/16 Time: 9:15 AM (RECEIVED 10 UNITS LEVIMER) Aspirin (Ecotrin*) 81 MG TABLET.DR 1 Tablet ORAL DAILY Days = 30 Comments: Last Taken: 09/17/16 Time: 9:00 AM Trazodone HCl (Trazodone HCl) 50 MG TABLET 1 Tablet ORAL Every night as needed for Sleep Days = 30 Comments: NOT GIVEN IN HOSPTIAL Metoclopramide HCl (Reglan) 5 MG TABLET 1 Tablet ORAL EVERY SIX HOURS NEEDED as needed for NAUSEA Days = 3 Comments: NOT GIVEN IN HOSPITAL Pregabalin (Lyrica) 75 MG CAPSULE 1 Capsule ORAL TWICE DAILY Qty = 60 Comments: Last Taken: 09/17/16 Time: 9:00 AM Propranolol HCl (Propranolol HCl) 20 MG TABLET 1 Tablet ORAL TWICE DAILY as needed for TACHYCARDIA Qty = 60 Comments: NOT GIVEN IN HOSPTIAL Methimazole (Methimazole) 10 MG TABLET 1 Tablet ORAL DAILY Qty = 30 Comments: Last Taken: 09/17/16 Time: 9:00 AM Insulin Aspart (Novolog) 100 UNIT/ML VIAL 0 Units Inject into fatty tissue See Instructions Days = 30 Instructions: BEFORE MEALS Blood Insulin Sugar Units <100 0 100-180 2 units 181-250 3 U 251-320 4 U 321-360 5 U 361-450 6 U >450 7 U >400 7 Call Doctor AT BEDTIME Blood Insulin Sugar Units <320 0 321-360 2 U 361-450 3 U >450 4 U Comments: Last Taken: 09/17/16 Time: 12:45 PM This prescription has been renewed Hydroxyzine HCl (Hydroxyzine HCl) 25 MG TABLET 1-2 Tablet ORAL THREE TIMES DAILY as needed for ITCHING Qty = 30 Comments: Last Taken: 09/17/16 Time: 11:00 AM This prescription has been renewed Start taking the following new medications: Albuterol Sulfate (Albuterol Sulfate) 2.5 MG/3 ML (0.083 %) VIAL.NEB 3 [place] Inhale through mouth THREE TIMES DAILY Days = 30 Refills = 1 Comments: Last Taken: 09/17/16 Time: 10:30 AM Prednisone (Prednisone) 10 MG TABLET 1 Tablet ORAL TWICE DAILY Qty = 16 No Refills Instructions: 09/18/2016 40 mg (4 tablets) 09/19-09/20 30 mg 09/21-09/22 20 mg 09/23-09/24 10 mg Comments: Last Taken: 09/17/16 Time: 9:00 AM Copies To: MART BAUM,JANET Attending MD Review Statement Documenting Attending: CHRISTIANO PUGH MD Other Findings: PATIENT: ABEBE TURCIOS PRESENT AGE: 55 PATIENT ACCOUNT NO: [id number] : 61 LOCATION: [facility] ORDERING PHYSICIAN: ERNESTINE SOUTH MD SERVICE DATE: 09/10/16- EXAM TYPE: CARD - ECHOCARDIOGRAM ABEBE TURCIOS Age: 55 : 1960 Gender: F Exam Date: 09/10/2016 18:56 Exam Location: [facility] Ht (in): 65 Wt (lb): 133 BSA: 1.67 BP: 140 / 60 Ordering Physician: ERNESTINE SOUTH MD Referring Physician: Slava Meza MD Chief, SoC Technologist: Deepthi Sarmiento [facility] Room Number: 104 Indications: PULMONARY HYPERTENSION Rhythm: Sinus Technical Quality: Good FINDINGS Left Ventricle Normal size left ventricle. Mild concentric left ventricular hypertrophy. Normal left ventricular ejection fraction visually estimated at >65 %. No obvious regional wall motion abnormalities. Normal left ventricular diastolic filling pattern for age. Right Ventricle The right ventricle is normal in size and function. Right Atrium The right atrium is normal in size. Left Atrium The left atrium is normal in size. The interatrial septum is intact. Mitral Valve Mild thickening/calcification of the mitral valve leaflets. Mild- to-moderate mitral regurgitation. Aortic Valve Structurally normal trileaflet aortic valve. No aortic stenosis. No aortic regurgitation. Tricuspid Valve Tricuspid valve is normal in structure and function. Moderate tricuspid regurgitation. Right ventricular systolic pressure estimated to be elevated at 55-60 mmHg. Moderate to severe pulmonary hypertension. Pulmonic Valve Structurally normal pulmonic valve. There is trace pulmonic regurgitation. Pericardium Normal pericardium without effusion. No pleural effusion. Great Vessels Normal size aortic root. Dilated IVC CONCLUSIONS Mild concentric left ventricular hypertrophy. Normal left ventricular ejection fraction visually estimated at >65 The left atrium is normal in size. Mild thickening/calcification of the mitral valve leaflets. [id number] mitral regurgitation. Structurally normal trileaflet aortic valve. No aortic stenosis. Moderate tricuspid regurgitation. Right ventricular systolic pressure estimated to be elevated at 55- 60 mmHg. Moderate to severe pulmonary hypertension. Dilated IVC. Slava Meza M.D. (Electronically Signed) Final Date: 11 September 2016 10:12 MEASUREMENTS (Male / Female) Normal Values 2D ECHO LV Diastolic Diameter PLAX 4.0 cm 4.2 - 5.9 / 3.9 - 5.3 cm LV Systolic Diameter PLAX 2.2 cm 2.1 - 4.0 cm LV Fractional Shortening PLAX 45.0 % 25 - 46 % LV Ejection Fraction 2D Teich 76.9 % IVS Diastolic Thickness 1.2 cm LVPW Diastolic Thickness 1.2 cm LV Relative Wall Thickness 0.6 RV Internal Dim ED PLAX 2.9 cm 1.9 - 3.8 cm LVOT Diameter 1.8 cm Aortic Root Diameter 2.7 cm LA Systolic Diameter LX 3.2 cm 3.0 - 4.0 / 2.7 - 3.8 cm LA Volume 32.0 cm 18 - 58 / 22 - 52 cm Ascending Aorta Diameter 3.3 cm DOPPLER AV Peak Velocity 179.0 cm/s AV Peak Gradient 12.8 mmHg AV Mean Velocity 112.0 cm/s AV Mean Gradient 6.0 mmHg AV Velocity Time Integral 30.2 cm LVOT Peak Velocity 123.0 cm/s LVOT Peak Gradient 6.1 mmHg LVOT Mean Velocity 87.0 cm/s LVOT Mean Gradient 3.0 mmHg LVOT Velocity Time Integral 23.7 cm LVOT Stroke Volume 60.3 cm AV Area Cont Eq vti 2.0 cm AV Area Cont Eq pk 1.7 cm MV Peak Velocity 239.0 cm/s MV Peak Gradient 22.8 mmHg MV Mean Velocity 123.0 cm/s MV Mean Gradient 8.0 mmHg Mitral E Point Velocity 162.0 cm/s Mitral A Point Velocity 89.1 cm/s Mitral E to A Ratio 1.8 MV PHT Velocity 244.0 cm/s MV Deceleration Coke 1111.0 cm/s MV Pressure Half Time 65.9 ms MV Area PHT 3.3 cm MV Deceleration Time 161.0 ms TR Peak Velocity 344.0 cm/s TR Peak Gradient 47.3 mmHg Right Atrial Pressure 5.0 mmHg Pulmonary Artery Systolic Pressu 52.3 mmHg Right Ventricular Systolic Press 52.3 mmHg PV Peak Velocity 139.0 cm/s PV Peak Gradient 7.7 mmHg PV Mean Velocity 91.9 cm/s PV Mean Gradient 4.0 mmHg PV Velocity Time Integral 29.1 cm LV E' Lateral Velocity 13.3 cm/s Mitral E to LV E' Lateral Ratio 12.2 LV E' Septal Velocity 6.9 cm/s Mitral E to LV E' Septal Ratio 23.4 DICTATED BY: SLAVA MEZA MD, V. DATE/TIME DICTATED:09/11/161011 MATERIAL CHECKER:MITZY DATE/TIME TRANSCRIBED:09/11/161011 CONFIDENTIAL, DO NOT COPY WITHOUT APPROPRIATE AUTHORIZATION. <Electronically signed in Other Vendor System> SIGNED BY: SLAVA MEZA MD, V. 09/11/161012 PATIENT: ABEBE TURCIOS PRESENT AGE: 55 PATIENT ACCOUNT NO: [id number] : 61 LOCATION: [facility] ORDERING PHYSICIAN: ERNESTINE SOUTH MD SERVICE DATE: 09/10/16- EXAM TYPE: RAD - XRY-PORTABLE CHEST XRAY EXAMINATION: XR PORTABLE CHEST CLINICAL INFORMATION: Shortness of breath and cough. COMPARISON: 09/09/2016 TECHNIQUE: Portable view of the chest was obtained. FINDINGS: Cardiac leads overlie the chest. The lungs are well expanded. Small left pleural effusion is unchanged. Prominent interstitial markings remain, similar to prior. No pneumothorax. The cardiomediastinal silhouette is unchanged. No acute osseous abnormality. IMPRESSION: No significant change from prior. Small left pleural effusion. Prominent interstitial markings suggestive of interstitial edema. DICTATED BY: GIACOMO ARMENTA MD DATE/TIME DICTATED:09/10/16812 MATERIAL CHECKER:MITZY DATE/TIME TRANSCRIBED:09/10/16812 CONFIDENTIAL, DO NOT COPY WITHOUT APPROPRIATE AUTHORIZATION. <Electronically signed in Other Vendor System> SIGNED BY: GIACOMO ARMENTA MD 09/10 PATIENT: ABEBE TURCIOS PRESENT AGE: 55 PATIENT ACCOUNT NO: [id number] : 62 LOCATION: [facility] ORDERING PHYSICIAN: JOSY NICOLE SERVICE DATE: 09/09/16-1834 EXAM TYPE: US - US-LIMITED ABDOMEN EXAMINATION: US ABDOMEN LIMITED CLINICAL INFORMATION: Jaundice and elevated LFTs. COMPARISON: CT abdomen and pelvis with contrast 06/09/2014. TECHNIQUE: Real-time imaging of the right upper quadrant abdominal viscera. FINDINGS: Limited exam secondary to portable technique and patient body habitus. PANCREAS: Normal. LIVER: The liver is normal in size, contour and echogenicity and measures approximately 15.6 cm in length. No focal lesion or intrahepatic biliary duct dilatation is identified. GALLBLADDER: Status post cholecystectomy. COMMON BILE DUCT: The common bile duct is dilated and is visualized measuring 1.0 cm in diameter. There are no visible echogenic intraductal stones. RIGHT KIDNEY: Unremarkable. No hydronephrosis. No renal calculi or focal parenchymal lesions. The kidney measures 8.9 cm in maximum dimension. FREE FLUID: None. IMPRESSION: Status post cholecystectomy. Dilatation of the common bile duct, which is visualized measuring up to 1 cm in diameter, not significantly changed relative to a prior CT of the abdomen and pelvis dating back to 06/09/2014. Some degree of common bile duct dilatation is expected following cholecystectomy. If there is a clinical concern for choledocholithiasis, consider correlation with MRCP of the abdomen. DICTATED BY: SANTI MENDOZA MD DATE/TIME DICTATED:09/09/162037 MATERIAL CHECKER:MITZY DATE/TIME TRANSCRIBED:09/09/162037 CONFIDENTIAL, DO NOT COPY WITHOUT APPROPRIATE AUTHORIZATION. <Electronically signed in Other Vendor System> SIGNED BY: SANTI MENDOZA MD 09/09/162051
[2016-09-17] MEDS ORDERED: HYDROXYZINE HCL25 M2 PO (11:00)
--- NOTE | 2016-09-17 12:45 | NUR ---
NURSING NOTE: PT BS 494 BEFORE LUNCH, PT HAD LATE BREAKFAST. COVER WITH 7UNITS NOVOLOG PER ISABELLE BUSTAMANTE. PT CAN STILL BE DISCHARGED AND WILL F/U W/DR. LOPEZ FOR DM MANAGEMENT
--- NOTE | 2016-09-17 12:52 | PN- Pulmonary ---
Subjective HPI/Critical Care Issues: Patient seen and examined. No chest pain, at respiratory baseline. Diarrhea improved. Afebrile and hemodynamically stable. Objective Current Medications: Current Medications Sig/Cathy Start time Last Medication Dose Route Stop Time Status Admin Acetaminophen 650 MG Q6P PRN 09/13 1515 AC 09/14 PO 0739 Albuterol Sulfate 3 ML TID 09/09 2200 AC 09/17 INH 1028 Alprazolam 1 MG TID PRN 09/14 1202 AC 09/17 PO 09/20 0959 0524 Aspirin Buffered 81 MG DAILY 09/10 1000 AC 09/17 PO 0851 Budesonide/ 2 PUF BID 09/09 2200 AC 09/17 Formoterol Fumarate INH 0852 Cholecalciferol 1,000 IU DAILY 09/14 1348 AC 09/17 PO 0852 Enoxaparin Sodium 40 MG DAILY 09/10 1000 AC SC Glycerin/Mineral Oil 1 KRISS TID PRN 09/12 1000 AC TOP Hydroxyzine HCl 10 MG TID PRN 09/14 0915 AC 09/17 PO 1046 Ibuprofen 400 MG Q6P PRN 09/14 1200 AC 09/17 PO 1010 Insulin Aspart 0 TIDAC/HS 09/10 1200 AC 09/17 SC 1248 Insulin Detemir 10 UNITS BID 09/17 1000 AC 09/17 SC 0910 Insulin Detemir 9 UNITS BID 09/16 1000 DC 09/16 SC 2231 Loperamide HCl 2 MG Q6P PRN 09/16 1430 AC 09/17 PO 0516 Methadone HCl 100 MG 0500 09/10 0500 AC 09/17 PO 0516 Methimazole 10 MG DAILY 09/14 1000 AC 09/17 PO 0852 Nicotine 14 MG DAILY 09/10 1000 AC 09/17 TOP 0852 Prednisone 10 MG DAILY 09/23 1000 AC PO 09/24 1001 Prednisone 20 MG DAILY 09/21 1000 AC PO 09/22 1001 Prednisone 30 MG DAILY 09/19 1000 AC PO 09/20 1001 Prednisone 40 MG DAILY 09/17 1000 AC 09/17 PO 09/18 1001 0851 Pregabalin 75 MG BID 09/09 2200 AC 09/17 PO 0852 Trazodone HCl 50 MG QPM PRN 09/09 2015 AC PO Vital Signs & I&O Last 24 Hrs of Vitals and I&O: Vital Signs Date Time Temp Pulse Resp B/P Pulse O2 O2 Flow FiO2 Ox Delivery Rate 09/17 1030 98 Nasal 4.0L Cannula 09/17 0800 96 Nasal 4.0L Cannula 09/17 0715 97.8 76 20 142/86 96 Nasal 4.0L Cannula 09/17 0544 98 Nasal 4.0L Cannula 09/17 0000 Nasal 4.0L Cannula 09/16 2355 98.3 90 20 158/74 92 Nasal 4.0L Cannula 09/16 2155 97 Nasal 4.0L Cannula 09/16 1622 98.0 91 20 158/82 93 Nasal 4.0L Cannula 09/16 1600 94 Nasal 4.0L Cannula Intake & Output 09/17 1600 09/17 0800 09/17 0000 Intake Total 600 1400 Output Total Balance 600 1400 Intake, Oral 600 1400 Number 1 1 Bowel Movements Exam Other Physical Findings: General - Alert, awake and oriented HEENT - normocephalic, atraumatic Cardiovascular - S1, S2 Lungs - bilateral wheezing inspiratory and expiratory Abdomen - soft, bowel sounds positive, no tenderness Extremities - trace edema Impression/Plan Impression/Plan Impression/Plan: Impression 55-year-old woman with acute hypercarbic and hypoxemic respiratory failure likely secondary to COPD exacerbation, opiate dependence on methadone program. History of diabetes and atrial fibrillation that has been intermittent. Plan - prednisone taper by 10mg every 2 days - Off antibiotics - Continue methadone - TR nebs - DVT prophylaxis at all times D/C planning DC with albuterol nebulized and a nebulizer machine
== END 2016-09-17 15:01 | DRG 189 ==
LOC: ERH 17:01 → ENPENDDIS 18:25 → CRI 18:25 → ERHI 18:25 → 2NB 18:25 → CRI 18:34 → 2NB 09-14 15:00
PROVIDERS: Internal Medicine; Internal Medicine Infectious Disease; Physician Assistant; ADMIT Internal Medicine
PROC: 5A09357 Assistance with Respiratory Ventilation, Less than 24 Consecutive Hours, Continuous Positive Airway Pressure (ICD-10-PCS; principal; 2016-09-09)
DX: J96.21 Acute and chronic respiratory failure with hypoxia (principal); J44.1 Chronic obstructive pulmonary disease with (acute) exacerbation; E87.2 Acidosis; I50.32 Chronic diastolic (congestive) heart failure; K31.84 Gastroparesis; E10.42 Type 1 diabetes mellitus with diabetic polyneuropathy; J44.0 Chronic obstructive pulmonary disease with (acute) lower respiratory infection; E10.43 Type 1 diabetes mellitus with diabetic autonomic (poly)neuropathy; E05.00 Thyrotoxicosis with diffuse goiter without thyrotoxic crisis or storm; G89.4 Chronic pain syndrome; Z79.891 Long term (current) use of opiate analgesic; F17.210 Nicotine dependence, cigarettes, uncomplicated; F32.9 Major depressive disorder, single episode, unspecified; F41.9 Anxiety disorder, unspecified; J20.9 Acute bronchitis, unspecified; E10.65 Type 1 diabetes mellitus with hyperglycemia
CPT/HCPCS: 2NBP; CCU; 36415; 80307; 81001; 82436; 87040; 87070; 87086; 87804; 87804-59; 93005; 93010; 93306; 96365; 96366; 96375; 97001-GP; 97110-GO; 97116-GO; 97161-GP; 99291; G0480; J0456; J0696; J1650; J1815; J1940; J2920; J2930; J3490; J7040

== ENCOUNTER 2016-09-30 15:03 | Emergency (ER) | payer OTHER, MEDICARE ==
[2016-09-30 15:03] VITALS: BP 0/0
[~2016-09-30 15:03] MED LIST changes: +ALBUTEROL2.5 MG/3 M INH; +METHIMAZOLE10 M1 PO
--- NOTE | 2016-09-30 15:27 | ED CRITICAL CARE ---
History of Present Illness General Chief Complaint: Cardiopulmonary Resuscitation Stated Complaint: CPR Source: family, old records, EMS Exam Limitations: clinical condition Vital Signs & Intake/Output Vital Signs & Intake/Output Vital Signs Date Time Temp Pulse Resp B/P Pulse O2 O2 Flow FiO2 Ox Delivery Rate 09/30 1503 0 0 0/0 . (KURT NERI MD) Allergies Coded Allergies: No Known Allergies (05/16/16) PER PT VERBALLY VERIFIED TAKES 81MG ASA Reconcile Medications Albuterol Sulfate (Proair Hfa) 8.5 GM HFA.AER.AD 2 PUF INH Q4-6 PRN PRN BREATHING (Reported) Albuterol Sulfate 2.5 MG/3 ML (0.083 %) VIAL.NEB 3 ML INH TID COPD Alprazolam (Xanax) 1 MG TABLET 1 TAB PO TIDPRN PRN ANXIETY (Reported) Aspirin (Ecotrin*) 81 MG TABLET.DR 1 TAB PO DAILY HEART/BLOOD (Reported) Budesonide/Formoterol Fumarate (Symbicort 160-4.5 Mcg Inhaler) 10.2 GM HFA.AER.AD 2 PUF INH BID copd (Reported) Ergocalciferol (Vitamin D2) (Vitamin D2) 50,000 UNIT CAPSULE 1 CAP PO QFRI SUPPLEMENT (Reported) Hydroxyzine HCl 25 MG TABLET 1-2 TAB PO TID PRN ITCHING Insulin Aspart (Novolog) 100 UNIT/ML VIAL 0 UNITS SC SI diabetes BEFORE MEALS Blood Insulin Sugar Units <100 0 100-180 2 units 181-250 3 U 251-320 4 U 321-360 5 U 361-450 6 U >450 7 U >400 7 Call Doctor AT BEDTIME Blood Insulin Sugar Units <320 0 321-360 2 U 361-450 3 U >450 4 U Insulin Glargine,Hum.rec.anlog (Toujeo Solostar) 300 UNIT/1 ML INSULN.PEN 20 UNITS SC 0900 DIABETES (Reported) Methadone HCl (Dolophine HCl) 10 MG TABLET 10 TAB PO 0500 CHRONIC PAIN ( Reported) Methimazole 10 MG TABLET 1 TAB PO DAILY HYpothyroididsm (Reported) Metoclopramide HCl (Reglan) 5 MG TABLET 1 TAB PO Q6P PRN NAUSEA Prednisone 10 MG TABLET 1 TAB PO BID COPD 09/18/2016 40 mg (4 tablets) 09/19-09/20 30 mg 1/15-09/22 20 mg 09/23-09/24 10 mg Pregabalin (Lyrica) 75 MG CAPSULE 1 CAP PO BID NERVE PAIN (Reported) Propranolol HCl 20 MG TABLET 1 TAB PO BID PRN TACHYCARDIA (Reported) Trazodone HCl 50 MG TABLET 1 TAB PO QPM PRN Sleep (Reported) Core Measure Meds Pre-Hospital aspirin Triage Nurses Notes Reviewed? yes Onset: Just prior to arrival Duration: hour(s):, constant, continues in ED Timing: recent history Injury Environment: home Severity: severe Pain Location: none Method of Injury: unknown LMP (ages 10-50): post menopausal : No Patient currently breastfeeds: No HPI: 4 hours prior to admission patient was seen by family without complaint. Prior to admission she was found on the floor with vomit unresponsive with no heart rate CPR started 911 called. EMS started ACLS protocol for asystole D10 for low FBS and narcan for methadone use. There is no report of fever chills chest pain headache dysuria rash bleeding. Past History Medical History Any Pertinent Medical History? 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 SON (IDDM). FATHER (pancreatic cancer). Relation not specified for: FH: diabetes mellitus FH: thyroid disease Hx Contributory? No Review of Systems Review of Systems Constitutional: Reports: no symptoms. Comments Unable to obtain due to clinical condition. Family reports she had no complaints when seen last. Physical Exam Physical Exam General Appearance: intubated, severe distress, obese Head: atraumatic, normal appearance Eyes: Bilateral: other (fixed pinpoint no light rx). Ears, Nose, Throat, Mouth: dry mucous membranes Neck: normal inspection, supple, full range of motion, normal alignment Respiratory: mechanical breath sounds Cardiovascular: no heart sounds Peripheral Pulses: 0 carotid (R), 0 carotid (L), 0 femoral (R), 0 femoral (L) Gastrointestinal: soft, no organomegaly Back: normal inspection, normal range of motion Extremities: no ligament instability Neurologic/Psych: motor/sensory deficits Skin: cyanosis, pallor, cold Core Measures ACS in differential dx? Yes CVA/TIA Diagnosis: No Severe Sepsis Present: No Septic Shock Present: No Progress Differential Diagnoses I considered the following diagnoses in my evaluation of the patient: Aspiration respiratory arrest asystole myocardial infarction opiate overdose Plan of Care: ACLS Initial ED EKG: none Comments: Family notified workers' compensation claims examiner notified PMD notified packet completed Departure Departure Time of Disposition: 1508 Disposition: Condition: Stable Clinical Impression Primary Impression: due to respiratory arrest Secondary Impressions: Aspiration into airway Qualifiers: Encounter type: initial encounter Qualified Code: T17.908A - Unspecified foreign body in respiratory tract, part unspecified causing other injury, initial encounter Cardiac asystole Referrals: MART BAUM,JANET (PCP/Family) Departure Forms: General Discharge Information Critical Care Note Critical Care Note Critical Care Time: 30-74 min (40)
== END 2016-09-30 20:03 | disposition expired ==
LOC: ERH 15:03
DX: R09.2 Respiratory arrest (principal); T17.908A Unspecified foreign body in respiratory tract, part unspecified causing other injury, initial encounter
CPT/HCPCS: 1387; 94799; 96374